=== PATIENT | male | born 1970 | race Caucasian/White ===

== ENCOUNTER → 2020-11-26 08:34 | Outpatient (BNVA) | payer BC, SELFPAY | PROVIDERS: Visit Provider Anesthesiology | DX: Z76.89 Persons encountering health services in other specified circumstances (principal) ==

== ENCOUNTER → 2020-12-24 08:28 | Outpatient (BNVA) | payer BC, SELFPAY | PROVIDERS: Visit Provider Anesthesiology ==

== ENCOUNTER 2021-01-08 06:58 | Outpatient (REF) | payer BC, SELFPAY | END 2021-01-08 06:59 | disposition home or self-care (01) | LOC: HO.RADIR 06:58 | PROVIDERS: Visit Provider Anesthesiology | DX: Z13.89 Encounter for screening for other disorder (principal) ==

== ENCOUNTER 2021-01-22 07:00 | Outpatient (REF) | payer BC, SELFPAY | END 2021-01-22 07:01 | disposition home or self-care (01) | LOC: HO.RADIR 07:00 | PROVIDERS: Visit Provider Anesthesiology | DX: M96.1 Postlaminectomy syndrome, not elsewhere classified (principal); G89.4 Chronic pain syndrome; Z88.0 Allergy status to penicillin; Z88.8 Allergy status to other drugs, medicaments and biological substances; Z79.891 Long term (current) use of opiate analgesic | CPT/HCPCS: 62370 ==

== ENCOUNTER → 2021-01-30 08:06 | Outpatient (BNVA) | payer BC, SELFPAY | PROVIDERS: Visit Provider Anesthesiology ==

== ENCOUNTER → 2021-02-11 08:16 | Outpatient (BNVA) | payer BC, SELFPAY | PROVIDERS: Visit Provider Anesthesiology ==

== ENCOUNTER → 2021-02-25 10:44 | Outpatient (BNVA) | payer BC, SELFPAY | PROVIDERS: Visit Provider Anesthesiology ==

== ENCOUNTER 2021-02-26 07:11 | Outpatient (REF) | payer BC, SELFPAY | END 2021-02-26 07:12 | disposition home or self-care (01) | LOC: HO.RADIR 07:11 | PROVIDERS: Visit Provider Anesthesiology | DX: Z13.89 Encounter for screening for other disorder (principal) | CPT/HCPCS: Q9967 ==

== ENCOUNTER 2021-03-26 06:24 | Outpatient (REF) | payer BC, SELFPAY | END 2021-03-26 06:25 | disposition home or self-care (01) | LOC: HO.RADIR 06:24 | PROVIDERS: Visit Provider Anesthesiology | DX: M96.1 Postlaminectomy syndrome, not elsewhere classified (principal); G89.4 Chronic pain syndrome; Z79.891 Long term (current) use of opiate analgesic | CPT/HCPCS: 62370 ==

== ENCOUNTER → 2021-04-11 08:03 | Outpatient (BNVA) | payer OTHER, BC, SELFPAY | PROVIDERS: Visit Provider Anesthesiology | DX: M96.1 Postlaminectomy syndrome, not elsewhere classified (principal); G89.4 Chronic pain syndrome; Z79.891 Long term (current) use of opiate analgesic | CPT/HCPCS: 62368; 99212 ==

== ENCOUNTER 2021-04-16 06:58 | Outpatient (REF) | payer OTHER, BC, SELFPAY | END 2021-04-16 06:59 | disposition home or self-care (01) | LOC: HO.RADIR 06:58 | PROVIDERS: Visit Provider Anesthesiology | DX: M96.1 Postlaminectomy syndrome, not elsewhere classified (principal); G89.4 Chronic pain syndrome; Z79.891 Long term (current) use of opiate analgesic | CPT/HCPCS: 62370 ==

== ENCOUNTER 2021-05-28 05:42 | Outpatient (REF) | payer OTHER, BC, SELFPAY | END 2021-05-28 05:43 | disposition home or self-care (01) | LOC: HO.RADIR 05:42 | PROVIDERS: Visit Provider Anesthesiology | DX: Z13.89 Encounter for screening for other disorder (principal) ==

== ENCOUNTER 2021-07-02 06:06 | Outpatient (REF) | payer OTHER, BC, SELFPAY | END 2021-07-02 06:07 | disposition home or self-care (01) | LOC: HO.RADIR 06:06 | PROVIDERS: Visit Provider Anesthesiology | DX: Z13.89 Encounter for screening for other disorder (principal) ==

== ENCOUNTER 2021-08-13 06:20 | Outpatient (REF) | payer OTHER, SELFPAY | END 2021-08-13 06:21 | disposition home or self-care (01) | LOC: HO.RADIR 06:20 | PROVIDERS: Visit Provider Anesthesiology | DX: Z13.89 Encounter for screening for other disorder (principal) ==

== ENCOUNTER 2021-09-26 11:36 | Day surgery (SDC) | payer OTHER, SELFPAY ==
[2021-09-26 11:59] VITALS: BP 129/82; PULSE 69; RESP 16; TEMP 36.3; O2SAT 96
[2021-09-26 12:03] VITALS: BMI 40.1
--- NOTE | 2021-09-26 12:57 | P.OP_ITS ---
Operative Note Operative Note Date of Service: 09/26/21 Narrative: THE PATIENT CAME TODAY IN THE OR - PACU FOR THE CHANGE OF THE MEDICATION IN his PAIN PUMP. ? The name and date of were verified and informed consent was obtained for the procedure. ?The pump was interrogated and the residual amount of fluid was found to be 4.1 mL. HE WAS POSITIONED supine on the bed AND THE AREA OF THE INTRATHECAL PUMP WAS PREPPED WITH CHLORAPREP. The fenestrated drape was sterilely applied over the area of the pump. Sterile gloves were worn and of the aspiration system was assembled containing 2 in 22 gauge noncoring needle, the needle was connected to extension tubing which was connected to the 20 cc sterile syringe. The pain pump was palpated under the skin in the patient's left abdominal area. The needle was inserted through the skin and the central plug of the pain pump and fluid was aspirated. The clear fluid was going into the syringe the total amount of the fluid was 3.6 mL .. After that a new batch? of medication was obtained which was containing dilaudid in concentration 4 mg/ml and bupivacaine 40 mg per ml. The admixture was made in 20 cc syringe prepared by [facility] compounding pharmacy. The syringe was connected to the bacterial filter, and then connected to the extension tubing. After that the medication in the syringe was slowly instilled into the pump with aspirations at 15 and 5 cc villalba. after that the needle was removed and sterile dressing was applied in the for of the band-aid.. The patient reports symptoms of peripheral polyneuropathy completely alleviated.? He reports 5 hours of good pain relief after he applies of the PTM dose.? He reports better activities of daily living, better mobility, better ability to withstand walking and sitting for prolonged period of time. The doses and?concentration?of the medications must be the same for the next refill.?
--- NOTE | 2021-09-26 12:59 | MHC.SHP ---
Pre-Procedural Eval Section A Date of Service: 09/26/21 Section B Chief Complaint: intermediate card tender use of opiate Analgesic Details of Present Illness: as above Relevant Social History: None Present Medications: see Short Stay Collaborative assessment Medical History: No relevant PMH History of Previous Operations: Relevant previous surgery/procedure and date(s) Allergies: Allergies Allergy/AdvReac Type Severity Reaction Status Date / Time penicillin V Allergy anaphylaxis Verified 09/26/21 11:58 sitagliptin [From Januvia] Allergy Anaphylaxis Verified 09/26/21 11:58 Review of Systems Sugical H&P ROS: Negative: Constitution, Cardiovascular, Respiratory, Neurological, Psychiatric, Hem-Onc, Allergic/Immunologic, Gastrointestinal, Genitourinary, Musculoskeletal, Integumentary, Endocrine and Eyes/Ears/Nose/Throat Exam Surgical H&P Exam: Normal: HEENT, Normal: Heart, Normal: Lungs, Normal: Extremities, Normal: Abdomen, Normal: Skin and Normal: Neurological Plan Diagnosis/Plan: Unchanged I have reviewed the history and physical and performed a pertinent physical examination on my patient. No changes have occurred unless specified.
--- NOTE | 2021-09-26 13:01 | PM.OP ---
Brief Operative Note Date of Service: 09/26/21 Pre-op diagnosis: postlaminectomy syndrome Post-op diagnosis: same Procedure: ITDD refill Implants: none Surgeon: Nima Russell MD Anesthesia: none Was an Drywall Application Supervisor used for this Procedure?: No Estimated blood loss (mL): 0 Pathology: none sent Condition: stable Disposition: PACU
== END 2021-09-26 12:49 | disposition home or self-care (01) ==
PROVIDERS: PCP Family Medicine Sports Medicine; Visit Provider Anesthesiology
PROC: (CPT 62370; principal; 2021-09-26 12:30)
DX: Z45.1 Encounter for adjustment and management of infusion pump (principal); G89.4 Chronic pain syndrome; M96.1 Postlaminectomy syndrome, not elsewhere classified; Z79.891 Long term (current) use of opiate analgesic; Z79.899 Other long term (current) drug therapy; Z88.0 Allergy status to penicillin; Z88.8 Allergy status to other drugs, medicaments and biological substances
CPT/HCPCS: 62370

== ENCOUNTER 2021-11-05 05:57 | Outpatient (REF) | payer OTHER, SELFPAY | END 2021-11-05 05:58 | disposition home or self-care (01) | LOC: HO.RADIR 05:57 | PROVIDERS: Visit Provider Anesthesiology | DX: Z13.89 Encounter for screening for other disorder (principal) ==

== ENCOUNTER 2021-12-10 05:42 | Outpatient (REF) | payer OTHER, SELFPAY | END 2021-12-10 05:43 | disposition home or self-care (01) | LOC: HO.RADIR 05:42 | PROVIDERS: Visit Provider Anesthesiology | DX: Z13.89 Encounter for screening for other disorder (principal) ==

== ENCOUNTER 2022-01-14 05:58 | Outpatient (REF) | payer OTHER, SELFPAY | END 2022-01-14 05:59 | disposition home or self-care (01) | LOC: HO.RADIR 05:58 | PROVIDERS: Visit Provider Anesthesiology | DX: M96.1 Postlaminectomy syndrome, not elsewhere classified (principal); G89.4 Chronic pain syndrome; Z79.891 Long term (current) use of opiate analgesic | CPT/HCPCS: 62370 ==

== ENCOUNTER 2022-02-18 06:11 | Outpatient (REF) | payer OTHER, SELFPAY | END 2022-02-18 06:12 | disposition home or self-care (01) | LOC: HO.RADIR 06:11 | PROVIDERS: Visit Provider Anesthesiology | DX: Z13.89 Encounter for screening for other disorder (principal) ==

== ENCOUNTER 2022-03-18 06:08 | Outpatient (REF) | payer OTHER, SELFPAY | END 2022-03-18 06:09 | disposition home or self-care (01) | LOC: HO.RADIR 06:08 | PROVIDERS: Visit Provider Anesthesiology | DX: Z13.89 Encounter for screening for other disorder (principal) ==

== ENCOUNTER 2022-04-23 05:55 | Outpatient (REF) | payer OTHER, SELFPAY | END 2022-04-23 05:56 | disposition home or self-care (01) | LOC: HO.RADIR 05:55 | PROVIDERS: Visit Provider Internal Medicine | DX: Z13.89 Encounter for screening for other disorder (principal) ==

== ENCOUNTER → 2022-04-24 08:27 | Outpatient (BNVA) | payer OTHER, SELFPAY | PROVIDERS: PCP Family Medicine Sports Medicine; Visit Provider Internal Medicine | DX: G89.4 Chronic pain syndrome (principal); Z96.89 Presence of other specified functional implants | CPT/HCPCS: 62370 ==

== ENCOUNTER → 2022-05-30 08:02 | Outpatient (BNVA) | payer OTHER, SELFPAY | PROVIDERS: PCP Family Medicine Sports Medicine; Visit Provider Internal Medicine | DX: G89.4 Chronic pain syndrome (principal); Z96.89 Presence of other specified functional implants | CPT/HCPCS: 62370 ==

== ENCOUNTER → 2022-10-06 08:37 | Outpatient (BNVA) | payer OTHER, SELFPAY | PROVIDERS: PCP Family Medicine Sports Medicine; Visit Provider Anesthesiology | DX: G89.4 Chronic pain syndrome (principal); M96.1 Postlaminectomy syndrome, not elsewhere classified; Z96.89 Presence of other specified functional implants; Z79.891 Long term (current) use of opiate analgesic | CPT/HCPCS: 99212 ==

== ENCOUNTER 2022-11-07 08:14 | Day surgery (SDC) | payer OTHER, SELFPAY ==
[2022-11-03 11:56] VITALS: BMI 2343.3
--- NOTE | 2022-11-06 09:43 | P.CONAN_ITS ---
Documented by User: Rosanne Roe NP 11/06/22 09:43 HPI - Anesthesia Eval Consult details Narrative: 52yo M for Intrathecal Drug Delivery Removal and Replacement 40ml pump PMFSH Active Problems Active Problems: All Active Problems (Updated 11/03/22 @ 11:51 by Arlette Vergara, RN) Granulomatous infection of spinal cord (Acute) Implantable intrathecal infusion pump present (Acute) supervisor intermediates (current) use of opiate analgesic (Acute) Chronic pain syndrome (Acute) Postlaminectomy syndrome (Acute) Past Medical History Medical History (Updated 11/03/22 @ 11:51 by Arlette Vergara, RN) Chronic pain syndrome Diabetes Elevated cholesterol GERD (gastroesophageal reflux disease) HTN (hypertension) Implantable intrathecal infusion pump present supervisor intermediates (current) use of opiate analgesic FERNANDO on CPAP Postlaminectomy syndrome Surgical History Surgical History (Updated 11/03/22 @ 11:51 by Arlette Vergara, RN) History of back surgery History of surgery Hx of appendectomy Social History Social History Patient Tobacco Use Status: Never used Tobacco Are you DNR?: No Advance Directives: No Advance Directives Information Provided: Yes Advance Directives on File: No Recently lost weight without trying: No Eating poorly because of decreased appetite: No Nutrition Risks: No Nutritional Risk Meds Allergies Allergy/AdvReac Type Severity Reaction Status Date / Time penicillin V Allergy Severe anaphylaxis Verified 11/03/22 11:42 sitagliptin [From Januvia] Allergy Severe Anaphylaxis Verified 11/03/22 11:42 Home Medications Medication Instructions Recorded Confirmed Last Taken Type atenolol 50 mg tablet 50 mg PO DAILY 05/28/21 11/03/22 Unknown History furosemide 20 mg tablet 10 mg PO QAM 05/28/21 11/03/22 09/26/21 07:30 History omeprazole 20 mg capsule,delayed 20 mg PO DAILY 05/28/21 11/03/22 Unknown History release sertraline 100 mg tablet (Zoloft) 200 mg PO DAILY 05/28/21 11/03/22 Unknown History trazodone 150 mg tablet 150 mg PO DAILY 05/28/21 11/03/22 Unknown History blood-glucose sensor (Dexcom G6 #3 ea 05/30/22 10/06/22 Unknown History Sensor device) blood-glucose transmitter (Dexcom #1 ea 05/30/22 10/06/22 Unknown History G6 Transmitter device) dulaglutide 1.5 mg/0.5 mL 1.5 mg subcut QWEEK 05/30/22 11/03/22 Unknown History subcutaneous pen injector (Trulicity) insulin lispro 100 unit/mL subcut 05/30/22 10/06/22 Unknown History subcutaneous solution (Humalog U-100 Insulin) Exam Exam Date and Time: November 06, 2022 0943 Height,Weight and Vital Signs: Height 9 in Weight 122.47 kg Assessment and Plan Assessment Anesthesia Assessment: Chart Reviewed Documented by User: Shannon Quiñones MD 11/07/22 08:41 [facility] Past Medical History Medical History (Updated 11/03/22 @ 11:51 by Arlette Vergara RN) Chronic pain syndrome Diabetes Elevated cholesterol GERD (gastroesophageal reflux disease) HTN (hypertension) Implantable intrathecal infusion pump present supervisor intermediates (current) use of opiate analgesic FERNANDO on CPAP Postlaminectomy syndrome Family History Family history of problems with anesthesia: No Surgical History Surgical History (Updated 11/03/22 @ 11:51 by Arlette Vergara RN) History of back surgery History of surgery Hx of appendectomy History of Problems with Anesthesia: No Social History Social History Patient Tobacco Use Status: Never used Tobacco Are you DNR?: No Advance Directives: No Advance Directives Information Provided: Yes Advance Directives on File: No Recently lost weight without trying: No Eating poorly because of decreased appetite: No Nutrition Risks: No Nutritional Risk Meds Allergies Allergy/AdvReac Type Severity Reaction Status Date / Time penicillin V Allergy Severe anaphylaxis Verified 11/03/22 11:42 sitagliptin [From Januvia] Allergy Severe Anaphylaxis Verified 11/03/22 11:42 Home Medications Medication Instructions Recorded Confirmed Last Taken Type atenolol 50 mg tablet 50 mg PO DAILY 05/28/21 11/03/22 Unknown History furosemide 20 mg tablet 10 mg PO QAM 05/28/21 11/03/22 09/26/21 07:30 History omeprazole 20 mg capsule,delayed 20 mg PO DAILY 05/28/21 11/03/22 Unknown History release sertraline 100 mg tablet (Zoloft) 200 mg PO DAILY 05/28/21 11/03/22 Unknown History trazodone 150 mg tablet 150 mg PO DAILY 05/28/21 11/03/22 Unknown History blood-glucose sensor (Dexcom G6 #3 ea 05/30/22 10/06/22 Unknown History Sensor device) blood-glucose transmitter (Dexcom #1 ea 05/30/22 10/06/22 Unknown History G6 Transmitter device) dulaglutide 1.5 mg/0.5 mL 1.5 mg subcut QWEEK 05/30/22 11/03/22 Unknown History subcutaneous pen injector (Trulicity) insulin lispro 100 unit/mL subcut 05/30/22 10/06/22 Unknown History subcutaneous solution (Humalog U-100 Insulin) Exam Airway Mallampati Class: II (Cap top left, 2 temporary caps lateral) TM Dist: >3cm Neck ROM: Full Heart: rrr Lungs: cta Assessment and Plan Assessment Anesthesia Assessment: Anesthesia Plan Discussed Final Anesthetic Review Family History of Problems with Anesthesia: No History of Problems with Anesthesia: No NPO: Yes ASA Class: III Final Preanesthetic Review: No Changes in Pt Med Stat, Meds/Allgs Chart Reviewed and Consent Obtained/Reviewed Patient Risk: Intermediate Procedure Risk: Intermediate Anesthetic Plan Anesthetic Plan: GA Disposition: Standard PACU
[2022-11-07] VITALS (18 sets, daily range): BP systolic 135–161; BP diastolic 69–95; PULSE 68–104; RESP 17–22; TEMP 35.7–36.6; O2SAT 94–99; BMI 39.9
--- NOTE | ~2022-11-07 | FL_ITS ---
EXAMINATION: XR FLUOROSCOPY WITH IMAGES CLINICAL INFORMATION: ITDDS removal and replacement. Pain management. COMPARISON: None. TECHNIQUE: Fluoroscopy Supervised By: Dr. Nima Russell. Fluoroscopy Time: 0.7 minutes. Cumulative Dose: 53.33 mGy. DAP: 13.17 Gycm2. Images: 2. FINDINGS: Fluoroscopy for pain management procedure. The final fluoroscopic spot view demonstrates a catheter ascending the posterior spinal canal with tip in lower thoracic region. There are multilevel degenerative disc changes and vertebral spurring. FL/FL guidance in OR IMPRESSION: Fluoroscopy for pain management procedure.
[2022-11-07] MEDS: Lactated Ringers 1,000 ML 100 ML IVCONT (08:54)
--- NOTE | 2022-11-07 09:31 | P.HPSUR_ITS ---
Pre-Procedural Eval Section A Date of Service: 11/07/22 The patient is an INPATIENT: No Changes since office visit: Yes Patient answered all questions The History & Physical has been completed within 30 days and I have reviewed it.: No Section B Chief Complaint: Chronic pain syndrome,postlaminectomy syndrome Details of Present Illness: as above as well as presence of ITDD [employer]. End of life of the pain pump. Relevant Family History (Specify if Yes): No Relevant Social History: None Present Medications: see Short Stay Collaborative assessment Medical History: No relevant PMH History of Previous Operations: No relevant previous surgery Allergies: Allergies Allergy/AdvReac Type Severity Reaction Status Date / Time penicillin V Allergy Severe anaphylaxis Verified 11/03/22 11:42 sitagliptin [From Januvia] Allergy Severe Anaphylaxis Verified 11/03/22 11:42 Review of Systems Sugical H&P ROS: Negative: Cardiovascular, Respiratory, Neurological, Psychiat diya, Hem-Onc, Allergic/Immunologic, Gastrointestinal, Genitourinary, Musculoskeletal, Integumentary, Endocrine and Eyes/Ears/Nose/Throat and Yes, Specify: Constitution (obesity) Exam Surgical H&P Exam: Normal: HEENT, Normal: Heart, Normal: Lungs, Normal: Extremities, Normal: Abdomen, Normal: Skin and Normal: Neurological Plan Diagnosis/Plan: Unchanged I have reviewed the history and physical and performed a pertinent physical examination on my patient. No changes have occurred unless specified.
--- NOTE | 2022-11-07 14:59 | PM.OP ---
Brief Operative Note Date of Service: 11/07/22 Pre-op diagnosis: posrlaminectomy syndrome, IDDD therapy, end of life of the pain pump Post-op diagnosis: same Procedure: removal of the intrathecal pain pump and replacement of the pain pump and intrathecal catheter. Surgeon: Nima Russell MD Anesthesia: GETA Was an Professor Of Oceanography used for this Procedure?: No Estimated blood loss (mL): 150 Pathology: none sent Condition: stable Disposition: PACU
--- NOTE | 2022-11-07 15:05 | W.PM.OPN ---
Operative Note Operative Note Date of Service: 11/07/22 Narrative: Cooper is very pleasant 52 years old gentleman who is suffering from postlaminectomy syndrome and intractable lower back pain who was on therapy of the intrathecal drug delivery system pain pump. The pump was inserted 7 years ago and now it went to the end of its life. The patient came today to [facility] operating room for the removal and replacement of the intrathecal drug delivary system pain pump and intrathecal catheter. The patient came to the operating room and was positioned supine on the operating table. [employer] [employer] monitors were applied and patient was induced with general anesthesia. He was transferred into the right lateral decubital position on the operating table all pressure points were protected. After that his lower back an midback as well as left nt flank as well as anterior left abdomen where a was location of the intrathecal pump were prepped with ChloraPrep and draped with sterile utility towels. After that you drapes were used to establish full body coverage and Ioban film was used to finish the dressing. Attention was 1st concentrated on the abdominal side. Location of the pump in the anterior abdomen was established. Of the previous incision was infiltrated with mixture of the lidocaine 2% and ropivacaine 0.5% 1-1. After that 12 cm incision was performed along side the previous incision. The scalpel was used 15 blade. After that thorough hemostasis using electrocautery was done. Weitlaner retractor was used to to widen the wound. very hard, partially calcified tissue of the pump antibiotics pocket was discovered covering the body of the pump. The tissue was perforated with Mariam scissors, the hemostat was inserted into the pocket and applied to the wound over the hemostat the incision was widened laterally and medially, and the body of the pump was found in the wound. it was freed from the numerous adhesions and delivered into the surface of the skin. side port of the pump was canulated with non -coring 25 g needle and aspiration was applied using 3 mls syringe. Unfortunately there were no CSF coming into the syringe. the intrathecal catheter was buried in the wound located behind the pump and the electrocautery was used to excise the catheter from the adhesions behind (more dorsal) of the antibiotic impregnated pocket. The catheter was freed from adhesions and cannulated with a tuberculin syringe needle. Again aspiration was applied unfortunately CSF was not coming again. The decision was made to replace the catheter system. The old intrathecal catheter distal end was folded on itself and 2 sutures were applied to the on the catheter. It was hidden in the soft tissue of the patient's abdominal fat. The abdominal wound was irrigated vancomycin containing normal saline and packed with lap pads soaked with normal saline mixed with vancomycin. The attention was attracted to the patient's back. Sterilely draped C-arm was brought over the operating field and anterior posterior and lateral pictures of the patient's lumbar spine was demonstrated on the screen L1-L2 interval was chosen as the point of interests of the intrathecal catheter. Strict midline incision was performed 5 cm long along side the projection of the L2 and L3 spinous processes. Thorough hemostasis was obtained using electrocautery. The incision was widened and deepened until the prevertebral fascia was reached. 16 gauge introducer needle was inserted it in projection of L3 lamina on the right and advanced to were the intrathecal space. The advancement was made on the anterior posterior and lateral views. After that on the lateral view advancement of the needle was made into the intrathecal space. Clear flow CSF was obtained. Intrathecal catheter was inserted through the needle and advanced toward T9-T10 interspace where patient's previous catheter was located. The Tycron 0 0 suture was used to form pursestring stitch. The stitch was tied over the needle and then the needle was withdrawn and the stylet was removed. The anchoring device was dislodged on the body of the catheter and advanced to the prevertebral fascia. Two Tycron sutures were used to suture the anchor to prevertebral fascia. After that irrigation with normal saline containing vancomycin was performed. Diffuse capillary bleeding was encountered. Hemostasis was attempted to be done with the Surgicel and the wound was tightly packed with vancomycin soaked 4x4s. We waited for 10 minutes and removed the Surgicel. The bleeding slowed down however capillary bleeding continued. After that tunneling device was used to connect both wounds with 1 intermittent wound on the patient flank to accommodate the tunneling catheter. The entire length of the intrathecal catheter was used. After that packing was removed from the abdominal wound and the tunneling device was used to connect the flank incision with abdominal wound the catheter was dislodged into the abdominal wound. The catheter was connected to the sutureless extension device and extension device was mounted on the pain pump. The pain pump was filled as follows sterilely obtained hydromorphone 10 milligrams/mL 10 mL was mixed with sterilely obtain preservative-free normal saline 10 mL constituting 20 mL of this solution with concentration of 5 mg of hydromorphone per mL. The pump was filled with this solution. The pump was 40 cc pump. The adhesions in the lower portion of the wound were excised with the antibiotic containing pocket materials. Anchoring sutures were applied to most inferior medial and most inferior lateral corners of the wound. They were connected to the brackets on the body of the pump, the pump was dislodged into the abdominal wound, the anchoring sutures were tied. After that the side port of the new 40 cc intrathecal pump was accessed using noncoring needle and the aspiration was performed. 0.5 mL of clear CSF was obtained into the syringe. The abdominal wound was closed using Polysorb 0 and Polysorb 2-0 was used to approximate the level of the skin. [place] were applied to the skin level. After that attention was concentrated on the wound in the back. 4 x 4 soaked with vancomycin containing normal saline were removed from the wound. Slow capillary bleeding continued. Snow hemostatic device was obtained on the operating field and wound was packed with this hemostatic resorbable device. That arrested the bleeding. Decision was made to keep the resorbable material in the wound. It was made wet with vancomycin containing normal saline. After that 0 Polysorb sutures were used to close back wound. 0 Polysorb sutures were used to approximate the sides of the skin and jaswinder were applied to the skin level. Two silk sutures were applied to close the flank wound. Bacitracin was applied to all 3 wounds bulky dressings were applied to the bilateral wounds and compress down to hold bulky material down to the skin. Abdominal binder was applied to the patient's abdomen. After that the patient was transferred supine on the operating table, awakened, extubated and transferred stable to the PACU. He recovered uneventfully in PACU.
[2022-11-07 15:08] LABS: Glucose, Whole Blood 183 mg/dL (60-115)
[2022-11-07] MEDS: Albuterol/Iprat 2.5/0.5MG 3 ML AMPUL.NEB INHALE (15:22)
[2022-11-07] MEDS: oxyCODONE HCl Immed Release 5 MG TABLET PO (15:38)
[2022-11-07] MEDS: fentaNYL citrate/PF 100 MCG/2 ML VIAL 25 MCG IVPUSH ×4 (15:39→16:04)
[2022-11-07] MEDS: Acetaminophen 325 MG TABLET 650 MG PO (15:43)
[2022-11-07] MEDS: HYDROmorphone HCl 0.5 MG/0.5 ML SYRINGE IVPUSH (16:33)
== END 2022-11-07 17:32 | disposition home or self-care (01) ==
PROVIDERS: PCP Family Medicine Sports Medicine; Visit Provider Anesthesiology
PROC: (CPT 62362; principal; 2022-11-07 10:00)
DX: G89.4 Chronic pain syndrome (principal); M96.1 Postlaminectomy syndrome, not elsewhere classified; E11.9 Type 2 diabetes mellitus without complications; I10 Essential (primary) hypertension; G47.33 Obstructive sleep apnea (adult) (pediatric); Z79.4 Long term (current) use of insulin; Z79.891 Long term (current) use of opiate analgesic; Z79.899 Other long term (current) drug therapy; Z88.0 Allergy status to penicillin; Z88.8 Allergy status to other drugs, medicaments and biological substances; Z99.89 Dependence on other enabling machines and devices
CPT/HCPCS: 62362; 62350; 82947; 94640; C1755; C1772; J0131; J1100; J1170; J2250; J2405; J2795; J3010; J3370; Q9967

== ENCOUNTER → 2022-11-13 09:26 | Outpatient (BNVA) | payer OTHER, SELFPAY | PROVIDERS: PCP Family Medicine Sports Medicine; Visit Provider Anesthesiology | DX: M96.1 Postlaminectomy syndrome, not elsewhere classified (principal); G89.4 Chronic pain syndrome; Z79.891 Long term (current) use of opiate analgesic; Z96.89 Presence of other specified functional implants | CPT/HCPCS: 62370; 99212 ==

== ENCOUNTER → 2022-11-20 09:45 | Outpatient (BNVA) | payer OTHER, SELFPAY | PROVIDERS: PCP Family Medicine Sports Medicine; Visit Provider Anesthesiology | DX: M96.1 Postlaminectomy syndrome, not elsewhere classified (principal); G89.4 Chronic pain syndrome; Z96.89 Presence of other specified functional implants; Z79.891 Long term (current) use of opiate analgesic | CPT/HCPCS: 99212 ==

== ENCOUNTER → 2023-02-04 08:28 | Outpatient (BNVA) | payer OTHER, SELFPAY | PROVIDERS: PCP Family Medicine Sports Medicine; Visit Provider Anesthesiology | DX: M96.1 Postlaminectomy syndrome, not elsewhere classified (principal); G89.4 Chronic pain syndrome; Z96.89 Presence of other specified functional implants; Z79.891 Long term (current) use of opiate analgesic | CPT/HCPCS: 62370; 99212 ==

== ENCOUNTER → 2023-03-18 11:40 | Outpatient (BNVA) | payer OTHER, SELFPAY | PROVIDERS: PCP Family Medicine Sports Medicine; Visit Provider Anesthesiology | DX: Z13.89 Encounter for screening for other disorder (principal) ==

== ENCOUNTER → 2023-04-22 08:25 | Outpatient (BNVA) | payer OTHER, SELFPAY | PROVIDERS: PCP Family Medicine Sports Medicine; Visit Provider Anesthesiology | DX: Z45.1 Encounter for adjustment and management of infusion pump (principal); M96.1 Postlaminectomy syndrome, not elsewhere classified; G89.4 Chronic pain syndrome; Z96.82 Presence of neurostimulator; Z79.891 Long term (current) use of opiate analgesic | CPT/HCPCS: 99212 ==

== ENCOUNTER 2023-07-13 08:31 | Outpatient (AMB) | payer OTHER, SELFPAY ==
[2023-07-13 08:39] VITALS: BP 136/72; PULSE 76; RESP 16; O2SAT 96; BMI 38.7
--- NOTE | 2023-07-13 08:39 | A.OFFVIS_ITS ---
Intake Vital Signs 07/13/23 08:39 Height 5 ft 9 in Weight 262 lb 3 oz BMI 38.7 BP 136/72 Blood Pressure Location Lt brachial Position Sitting Respiration 16 Pulse 76 Pulse Source Pulse Oximeter Pulse Oximetry (%) 96 Oxygen Delivery Method Room Air Intake Visit Reasons: ITDD Refill Allergies penicillin V Allergy (Severe, Verified 07/13/23 08:40) anaphylaxis sitagliptin [From Januvia] Allergy (Severe, Verified 07/13/23 08:40) Anaphylaxis HPI HPI Comments History of Present Illness Details Cooper is in my office again to refill medications in his pain pump.? The pump refill note is as below.? His complaint today mostly on the increased neuropathy in bilateral lower extremities. He has chronic diabetic patient on insulin pump. He is interested in discussing other means to treat the neuropathy but his pain pump. I told him that we reached a maximum concentration of the bupivacaine in the pump and a nerve further increase of the dose of the bupivacaine possible without decrease of effectiveness of the main medication hydromorphone in the pump. I offered this patient to try spinal cord stimulator Nevro. I told him that he needs to go to psychological evaluation before the trial. He said that he will be thinking about it. Meanwhile pump refill he is as below. ?Prior: ? He is suffering from postlaminectomy syndrome.? He has intrathecal pain pump for the past 7 years.? The intrathecal pain pump came to the end of life.? He went for the procedure of removal and replacement of intrathecal pain pump on 11/07/2022.? During the procedure we found several kinks of the intrathecal catheter.? Intrathecal catheter was replaced.? Intraoperatively patient had significant bleeding in the spinal wound were insertion of the catheter was made.? The ?snow ?surgical application was used to stop the bleeding in the area of the midline spinal incision.? In the patient's abdominal incision the old pump was found to be encapsulated in the antibiotic pouch.? The pouch was partially excised as it was calcified and causing severe adhesions in surrounding areas. The patient came today for the dressing change and removal of the jaswinder There were no bruising no swelling no redness no pathological discharge no local temperature, .? The wounds were worst with ChloraPrep, the jaswinder were removed, the wound was? draped with bacitracin ointment.? The pump was interrogated and the medication was changed in the pump.. PFSH Medical History (Updated 11/12/22 @ 08:13 by Nima Russell MD) Chronic pain syndrome Diabetes Elevated cholesterol GERD (gastroesophageal reflux disease) HTN (hypertension) Implantable intrathecal infusion pump present detention (current) use of opiate analgesic FERNANDO on CPAP Postlaminectomy syndrome Surgical History (Updated 11/03/22 @ 11:51 by Arlette Vergara RN) History of back surgery History of surgery Hx of appendectomy Social History Patient Tobacco Use Status: Never used Tobacco Review of Systems Const All systems reviewed & are unremarkable except as noted in HPI and below ENT Reports Normal hearing present Neuro Reports Normal hearing present, Denies Abnormal speech present and Denies Sensory deficit (Neuro) Physical Exam Vital Signs: Last Vital Signs Pulse 76 07/13/23 08:39 Resp 16 07/13/23 08:39 BP 136/72 07/13/23 08:39 Pulse Ox 96 07/13/23 08:39 Oxygen Delivery Method Room Air 07/13/23 08:39 BMI result Body Mass Index 38.7 Const General: cooperative, healthy appearing, comfortable and well developed; No no acute distress Nutritional Appearance: obese morbidly obese and overweight Orientation/consciousness: patient oriented x3 Limitations: no limitations Eyes General: appearance normal, both eyes and all related structures Pupils: Equal, round and reactive pupils present EOM: EOMs intact bilaterally Neck Neck: Yes full ROM Chest Chest palpation & inspection: normal inspection of the chest Resp Effort & Inspection: normal respiratory effort, able to speak in complete sentences, normal respiratory pattern, no audible wheezes and no cough Cardio Jugular venous distension: no JVD GI Inspection: Yes normal to inspection Back/Spine/Pelvis Other: On the physical examination he has pump in the left abdomen. He also has multiple scars from previous surgeries: He has Pfannenstiel incision in the lower abdomen for the anterior fusion and multiple midline and paramedian scars in projection of L5 and S1 vertebra as on the back. He denies weakness in bilateral lower extremities he denies incontinence with urine and/or stool he denies Valsalva maneuver positive. SLR is positive on the right and equivocal on the left. Neuro General: patient oriented x3 Cranial nerves: Yes Equal, round and reactive pupils present and Yes Normal hearing present Cognition (Neuro): normal cognition Speech: No Abnormal speech present Gait exam (Neuro): Normal gait present Motor exam (neuro): 55 motor strength present throughout Sensory Exam: No Sensory deficit (Neuro) Psych Appearance: grossly normal Mental Status: mental status grossly normal Speech and movement: Normal speech and movement present Affect: normal affect Attitude: cooperative Thought process: Normal thought process present Thought content: Normal thought content present Insight: Good insight present (Psych) Judgement: Good judgement present (Psych) Assessment & Plan Assessment & Plan (1) Implantable intrathecal infusion pump present: Comment: last refill 07/07/22 Code(s): Z96.89 - Presence of other specified functional implants (2) Chronic pain syndrome: Code(s): G89.4 - Chronic pain syndrome (3) Postlaminectomy syndrome: Code(s): M96.1 - Postlaminectomy syndrome, not elsewhere classified (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 However before that he will give us a call and tell us whether not he wants to try Nevro SCS. We need to send him to psych [facility] after his decision is made to try Nevro SCS. Plan THE PATIENT CAME TODAY IN THE OR - PACU FOR THE CHANGE OF THE MEDICATION IN his PAIN PUMP.? ?The pump was interrogated and the residual amount of fluid was found to be?4? mL. HE WAS POSITIONED supine on the bed AND THE AREA OF THE INTRATHECAL PUMP WAS PREPPED WITH CHLORAPREP. The fenestrated drape was sterilely applied over the area of the pump. Sterile gloves were worn and of the aspiration system was assembled containing 2 in 22 gauge noncoring needle, the needle was connected to extension tubing which was connected to the 20 cc sterile syringe. The pain pump was palpated under the skin in the patient's left abdominal area. The needle was inserted through the skin and the central plug of the pain pump and fluid was aspirated. The clear fluid was going into the syringe the total amount of the fluid was 5 mL .. After that a new batch? of medication was obtained which was containing dilaudid in concentration 4 mg/ml and bupivacaine 40 mg per ml. The admixture was made in two 20 cc syringes prepared by [facility] compounding pharmacy. The syringe was connected to the bacterial filter, and then connected to the extension tubing. After that the medication in the syringe was slowly instilled into the pump with aspirations at 15 and 5 cc villalba. after that the needle was removed and sterile dressing was applied in the for of the band-aid.. The doses and?concentration?of the medications must be the same for the next refill.? Coding Level of Care Code Est Pt Level 4 (50573) Procedure Only Diagnoses Implantable intrathecal infusion pump present Z96.89 Chronic pain syndrome G89.4 Postlaminectomy syndrome M96.1 detention (current) use of opiate analgesic Z79.891
== END 2023-07-13 08:59 | disposition home or self-care (01) ==
PROVIDERS: PCP Family Medicine Sports Medicine; Visit Provider Anesthesiology
DX: Z45.1 Encounter for adjustment and management of infusion pump (principal); Z79.891 Long term (current) use of opiate analgesic; G89.4 Chronic pain syndrome; M96.1 Postlaminectomy syndrome, not elsewhere classified
CPT/HCPCS: 95991

== ENCOUNTER → 2023-07-13 08:31 | Outpatient (BNVA) | payer OTHER, SELFPAY | PROVIDERS: PCP Family Medicine Sports Medicine; Visit Provider Anesthesiology ==

== ENCOUNTER 2023-09-30 08:30 | Outpatient (AMB) | payer OTHER, SELFPAY ==
[2023-09-30 08:33] VITALS: PULSE 83; RESP 12; O2SAT 97; BMI 38.4
--- NOTE | 2023-09-30 08:33 | A.OFFVIS_ITS ---
Intake Vital Signs 09/30/23 08:33 Height 5 ft 9 in Weight 260 lb BMI 38.4 Blood Pressure Location Lt brachial Position Sitting Respiration 12 Pulse 83 Pulse Source Pulse Oximeter Pulse Oximetry (%) 97 Oxygen Delivery Method Room Air Intake Visit Reasons: ITDD Refill /Confirmed Allergies penicillin V Allergy (Severe, Verified 09/30/23 08:34) anaphylaxis sitagliptin [From Januvia] Allergy (Severe, Verified 09/30/23 08:34) Anaphylaxis Medication List - Last Reconciled 09/30/23 by Violeta Corado LPN atenolol 50 mg PO DAILY blood-glucose sensor (Dexcom G6 Sensor device) As directed blood-glucose transmitter (Dexcom G6 Transmitter device) As directed furosemide 10 mg PO QAM insulin lispro (Humalog U-100 Insulin) subcut omeprazole 20 mg PO DAILY sertraline (Zoloft) 200 mg PO DAILY tirzepatide (Mounjaro) mg subcut trazodone 150 mg PO DAILY HPI HPI Comments History of Present Illness Details Cooper is in my office again to refill medications in his pain pump.? The pump refill note is as below.? His complaint today mostly on the increased neuropathy in bilateral lower extremities. He has chronic diabetic patient on insulin pump. He is interested in discussing other means to treat the neuropathy but his pain pump. I told him that we reached a maximum concentration of the bupivacaine in the pump and a nerve further increase of the dose of the bupivacaine possible without decrease of effectiveness of the main medication hydromorphone in the pump. Never SCS was discussed again patient is still thinking about it but meanwhile we need to send him for psychological evaluation. If he passes psych evaluation I do not mind to do a trial. Pump refill is as below. No changes were made in concentration of the medication. No changes will be done in in November we were at max concentration of bupivacaine. ? He is suffering from postlaminectomy syndrome.? He has intrathecal pain pump for the past 7 years.? The intrathecal pain pump came to the end of life.? He went for the procedure of removal and replacement of intrathecal pain pump on 11/07/2022.? During the procedure we found several kinks of the intrathecal catheter.? Intrathecal catheter was replaced.? Intraoperatively patient had significant bleeding in the spinal wound were insertion of the catheter was made.? The ?snow ?surgical application was used to stop the bleeding in the area of the midline spinal incision.? In the patient's abdominal incision the old pump was found to be encapsulated in the antibiotic pouch.? The pouch was partially excised as it was calcified and causing severe adhesions in surrounding areas. The patient came today for the dressing change and removal of the jaswinder There were no bruising no swelling no redness no pathological discharge no local temperature, .? The wounds were worst with ChloraPrep, the jaswinder were removed, the wound was? draped with bacitracin ointment.? The pump was interrogated and the medication was changed in the pump.. [facility] Medical History (Updated 11/12/22 @ 08:13 by Nima Russell MD) FERNANDO on CPAP Elevated cholesterol Diabetes GERD (gastroesophageal reflux disease) HTN (hypertension) Implantable intrathecal infusion pump present halfway (current) use of opiate analgesic Chronic pain syndrome Postlaminectomy syndrome Surgical History (Updated 11/03/22 @ 11:51 by Arlette Vergara RN) Hx of appendectomy History of back surgery History of surgery Social History Patient Tobacco Use Status: Never used Tobacco Review of Systems Const All systems reviewed & are unremarkable except as noted in HPI and below ENT Reports Normal hearing present Neuro Reports Normal hearing present, Denies Abnormal speech present and Denies Sensory deficit (Neuro) Physical Exam Vital Signs: Last Vital Signs Pulse 83 09/30/23 08:33 Resp 12 09/30/23 08:33 Pulse Ox 97 09/30/23 08:33 Oxygen Delivery Method Room Air 09/30/23 08:33 BMI result Body Mass Index 38.4 Const General: cooperative, healthy appearing, comfortable and well developed; No no acute distress Nutritional Appearance: obese morbidly obese and overweight Orientation/consciousness: patient oriented x3 Limitations: no limitations Eyes General: appearance normal, both eyes and all related structures Pupils: Equal, round and reactive pupils present EOM: EOMs intact bilaterally Neck Neck: Yes full ROM Chest Chest palpation & inspection: normal inspection of the chest Resp Effort & Inspection: normal respiratory effort, able to speak in complete sentences, normal respiratory pattern, no audible wheezes and no cough Cardio Jugular venous distension: no JVD GI Inspection: Yes normal to inspection Back/Spine/Pelvis Other: On the physical examination he has pump in the left abdomen. He also has multiple scars from previous surgeries: He has Pfannenstiel incision in the lower abdomen for the anterior fusion and multiple midline and paramedian scars in projection of L5 and S1 vertebra as on the back. He denies weakness in bilateral lower extremities he denies incontinence with urine and/or stool he denies Valsalva maneuver positive. SLR is positive on the right and equivocal on the left. Neuro General: patient oriented x3 Cranial nerves: Yes Equal, round and reactive pupils present and Yes Normal hearing present Cognition (Neuro): normal cognition Speech: No Abnormal speech present Gait exam (Neuro): Normal gait present Motor exam (neuro): 5/5 motor strength present throughout Sensory Exam: No Sensory deficit (Neuro) Psych Appearance: grossly normal Mental Status: mental status grossly normal Speech and movement: Normal speech and movement present Affect: normal affect Attitude: cooperative Thought process: Normal thought process present Thought content: Normal thought content present Insight: Good insight present (Psych) Judgement: Good judgement present (Psych) Assessment & Plan Assessment & Plan (1) Implantable intrathecal infusion pump present: Comment: last refill 07/07/22 Code(s): Z96.89 - Presence of other specified functional implants (2) Chronic pain syndrome: Code(s): G89.4 - Chronic pain syndrome (3) Postlaminectomy syndrome: Code(s): M96.1 - Postlaminectomy syndrome, not elsewhere classified (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 However before that he will give us a call and tell us whether not he wants to try Nevro SCS. We need to send him to [facility] after his decision is made to try Nevro SCS. Plan THE PATIENT CAME TODAY IN the office FOR THE CHANGE OF THE MEDICATION IN his PAIN PUMP.? ?The pump was interrogated and the residual amount of fluid was found to be?4.9? mL. HE WAS POSITIONED supine on the bed AND THE AREA OF THE INTRATHECAL PUMP WAS PREPPED WITH CHLORAPREP. The fenestrated drape was sterilely applied over the area of the pump. Sterile gloves were worn and of the aspiration system was assembled containing 2 in 22 gauge noncoring needle, the needle was connected to extension tubing which was connected to the 20 cc sterile syringe. The pain pump was palpated under the skin in the patient's left abdominal area. The needle was inserted through the skin and the central plug of the pain pump and fluid was aspirated. The clear fluid was going into the syringe the total amount of the fluid was 6.5 mL .. After that a new batch? of medication was obtained which was containing dilaudid in concentration 4 mg/ml and bupivacaine 40 mg per ml. The admixture was made in two 20 cc syringes prepared by [facility] compounding pharmacy. The syringe was connected to the bacterial filter, and then connected to the extension tubing. After that the medication in the syringe was slowly instilled into the pump with aspirations at 35, 25, 15 and 5 cc villalba. after that the needle was removed and sterile dressing was applied in the for of the band-aid.. The doses and?concentration?of the medications must be the same for the next refill.? Coding Level of Care Code Est Pt Level 3 (10019) Procedure Only Diagnoses Implantable intrathecal infusion pump present Z96.89 Chronic pain syndrome G89.4 Postlaminectomy syndrome M96.1 halfway (current) use of opiate analgesic Z79.891
== END 2023-09-30 09:17 | disposition home or self-care (01) ==
PROVIDERS: PCP Family Medicine Sports Medicine; Visit Provider Anesthesiology
DX: G89.4 Chronic pain syndrome (principal); M96.1 Postlaminectomy syndrome, not elsewhere classified; Z79.891 Long term (current) use of opiate analgesic; Z45.1 Encounter for adjustment and management of infusion pump
CPT/HCPCS: 95991; 99213

== ENCOUNTER → 2023-09-30 08:30 | Outpatient (BNVA) | payer OTHER, SELFPAY | PROVIDERS: PCP Family Medicine Sports Medicine; Visit Provider Anesthesiology | DX: Z48.00 Encounter for change or removal of nonsurgical wound dressing (principal); Z48.02 Encounter for removal of sutures; M96.1 Postlaminectomy syndrome, not elsewhere classified; G89.4 Chronic pain syndrome; Z96.82 Presence of neurostimulator; Z79.891 Long term (current) use of opiate analgesic | CPT/HCPCS: 99212 ==

== ENCOUNTER 2023-12-21 08:25 | Outpatient (AMB) | payer OTHER, SELFPAY ==
--- NOTE | 2023-12-21 08:28 | MHC.OFFVIS ---
Intake Vital Signs 12/21/23 09:02 Height 5 ft 9 in Weight 253 lb 8 oz BMI 37.4 BP 136/76 Blood Pressure Location Lt brachial Position Sitting Respiration 16 Pulse 74 Pulse Source Pulse Oximeter Pulse Oximetry (%) 96 Oxygen Delivery Method Room Air Intake Visit Reasons: ITDD REFILL/ UDS/confirmed Intake Note: Patient comes in for intrathecal medication refill. Reports pain 4/10. Allergies penicillin V Allergy (Severe, Verified 12/21/23 09:02) anaphylaxis sitagliptin [From Januvia] Allergy (Severe, Verified 12/21/23 09:02) Anaphylaxis HPI HPI Comments History of Present Illness Details Cooper is in my office again to refill medications in his pain pump.? The pump refill note is as below.? His complaint today mostly on the increased neuropathy in bilateral lower extremities. He has chronic diabetic patient on insulin pump. At the same time his social circumstances significantly changed. He lost his job, however he hopes it will be restored. His workman's comp insurance give obstacles to [employer] with next pump refills. Because he lost his [employer] insurance he is unable to afford insulin for himself and his hemoglobin A1c is almost 9. The last thing is today during the pump refill he has discrepancy of 3 mLs, this might be evident of granuloma, we decided that we will wait until the next refill and if the discrepancy states the same or increase we would need to do a dye study for him. I told him that since he does not have work he better be off to start [place] Medicaid to at least obtain insulin for himself. ? He is suffering from postlaminectomy syndrome and diabetic polyneuropathy. In the past we discussed spinal cord stimulation to help diabetic polyneuropathy, however at this point with insurance difficulties this conversation probably is a moot point. He has intrathecal pain pump for the past 7 years.? The intrathecal pain pump came to the end of life.? He went for the procedure of removal and replacement of intrathecal pain pump on 11/07/2022.? During the procedure we found several kinks of the intrathecal catheter.? Intrathecal catheter was replaced.? Intraoperatively patient had significant bleeding in the spinal wound were insertion of the catheter was made.? The ?snow ?surgical application was used to stop the bleeding in the area of the midline spinal incision.? In the patient's abdominal incision the old pump was found to be encapsulated in the antibiotic pouch.? The pouch was partially excised as it was calcified and causing severe adhesions in surrounding areas. [facility] Medical History (Updated 11/12/22 @ 08:13 by Nima Russell MD) FERNANDO on CPAP Elevated cholesterol Diabetes GERD (gastroesophageal reflux disease) HTN (hypertension) Implantable intrathecal infusion pump present [facility] (current) use of opiate analgesic Chronic pain syndrome Postlaminectomy syndrome Surgical History (Updated 11/03/22 @ 11:51 by Arlette Vergara RN) Hx of appendectomy History of back surgery History of surgery Social History Patient Tobacco Use Status: Never used Tobacco Review of Systems Const All systems reviewed & are unremarkable except as noted in HPI and below ENT Reports Normal hearing present Neuro Reports Normal hearing present, Denies Abnormal speech present and Denies Sensory deficit (Neuro) Physical Exam Const General: cooperative, healthy appearing, comfortable and well developed; No no acute distress Nutritional Appearance: obese morbidly obese and overweight Orientation/consciousness: patient oriented x3 Limitations: no limitations Eyes General: appearance normal, both eyes and all related structures Pupils: Equal, round and reactive pupils present EOM: EOMs intact bilaterally Neck Neck: Yes full ROM Chest Chest palpation & inspection: normal inspection of the chest Resp Effort & Inspection: normal respiratory effort, able to speak in complete sentences, normal respiratory pattern, no audible wheezes and no cough Cardio Jugular venous distension: no JVD GI Inspection: Yes normal to inspection Back/Spine/Pelvis Other: On the physical examination he has pump in the left abdomen. He also has multiple scars from previous surgeries: He has Pfannenstiel incision in the lower abdomen for the anterior fusion and multiple midline and paramedian scars in projection of L5 and S1 vertebra as on the back. He denies weakness in bilateral lower extremities he denies incontinence with urine and/or stool he denies Valsalva maneuver positive. SLR is positive on the right and equivocal on the left. Neuro General: patient oriented x3 Cranial nerves: Yes Equal, round and reactive pupils present and Yes Normal hearing present Cognition (Neuro): normal cognition Speech: No Abnormal speech present Gait exam (Neuro): Normal gait present Motor exam (neuro): 5/5 motor strength present throughout Sensory Exam: No Sensory deficit (Neuro) Psych Appearance: grossly normal Mental Status: mental status grossly normal Speech and movement: Normal speech and movement present Affect: normal affect Attitude: cooperative Thought process: Normal thought process present Thought content: Normal thought content present Insight: Good insight present (Psych) Judgement: Good judgement present (Psych) Assessment & Plan Assessment & Plan (1) Implantable intrathecal infusion pump present: Comment: last refill 07/07/22 Code(s): Z96.89 - Presence of other specified functional implants (2) Chronic pain syndrome: Code(s): G89.4 - Chronic pain syndrome (3) Postlaminectomy syndrome: Code(s): M96.1 - Postlaminectomy syndrome, not elsewhere classified (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 Before 03/12/2024. [facility] is probably a moot point at this time because of his insurance issues. Discussion of the social issues is as above. Plan THE PATIENT CAME TODAY IN the office FOR THE CHANGE OF THE MEDICATION IN his PAIN PUMP.? ?The pump was interrogated and the residual amount of fluid was found to be?3.5?mL. HE WAS POSITIONED supine on the bed AND THE AREA OF THE INTRATHECAL PUMP WAS PREPPED WITH CHLORAPREP. The fenestrated drape was sterilely applied over the area of the pump. Sterile gloves were worn and of the aspiration system was assembled containing 2 in 22 gauge noncoring needle, the needle was connected to extension tubing which was connected to the 20 cc sterile syringe. The pain pump was palpated under the skin in the patient's left abdominal area. The needle was inserted through the skin and the central plug of the pain pump and fluid was aspirated. The clear fluid was going into the syringe the total amount of the fluid was 6.5 mL .. After that a new batch? of medication was obtained which was containing dilaudid in concentration 4 mg/ml and bupivacaine 40 mg per ml. The admixture was made in two 20 cc syringes prepared by [facility] compounding pharmacy. The syringe was connected to the bacterial filter, and then connected to the extension tubing. After that the medication in the syringe was slowly instilled into the pump with aspirations at 35, 25, 15 and 5 cc villalba. after that the needle was removed and sterile dressing was applied in the for of the band-aid.. The doses and?concentration?of the medications must be the same for the next refill.? Patient Instructions: I here by testify that I spent 30 minute discussing medical and social issues with this patient as well as planning his care and organizing his note. There was a separate time to fill up and adjust his pain pump as well. 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
[2023-12-21 09:02] VITALS: BP 136/76; PULSE 74; RESP 16; O2SAT 96; BMI 37.4
== END 2023-12-21 08:54 | disposition home or self-care (01) ==
PROVIDERS: PCP Family Medicine Sports Medicine; Visit Provider Anesthesiology
DX: G89.4 Chronic pain syndrome (principal); M96.1 Postlaminectomy syndrome, not elsewhere classified; Z79.891 Long term (current) use of opiate analgesic; Z45.1 Encounter for adjustment and management of infusion pump
CPT/HCPCS: 95991; 99214

== ENCOUNTER → 2023-12-21 08:25 | Outpatient (BNVA) | payer OTHER, SELFPAY | PROVIDERS: PCP Family Medicine Sports Medicine; Visit Provider Anesthesiology | DX: Z45.1 Encounter for adjustment and management of infusion pump (principal); G89.4 Chronic pain syndrome; M96.1 Postlaminectomy syndrome, not elsewhere classified; Z79.891 Long term (current) use of opiate analgesic; Z96.89 Presence of other specified functional implants | CPT/HCPCS: 99212 ==

== ENCOUNTER 2024-03-10 08:26 | Outpatient (AMB) | payer OTHER, SELFPAY ==
--- NOTE | 2024-03-10 08:27 | A.OFFVIS_ITS ---
Intake Vital Signs 03/10/24 09:12 Height 5 ft 9 in Weight 250 lb BMI 36.9 BP 140/90 H Blood Pressure Location Lt brachial Position Sitting Respiration 16 Pulse 71 Pulse Source Pulse Oximeter Pulse Oximetry (%) 95 Oxygen Delivery Method Room Air Intake Visit Reasons: ITDD REFILL Intake Note: Patient comes in for intrathecal medication refill. Reports pain 02/06. Allergies penicillin V Allergy (Severe, Verified 03/10/24 09:13) anaphylaxis sitagliptin [From Januvia] Allergy (Severe, Verified 03/10/24 09:13) Anaphylaxis HPI HPI Comments History of Present Illness Details Cooper is in my office again to refill medications in his pain pump.? The pump refill note is as below.? He complains today on 2 different pain generators not related to the area of his pain pump and postlaminectomy syndrome. He reports pain in the neck in the projection of the C7 C6 and C5 vertebral spinous processes which is exacerbated by flexing had backwards - full physical exam see below. He also is complaining on pain in his left shoulder. He is under care of orthopedic surgeon who offered him total shoulder replacement. At the age of [age] years old this is not in my opinion a very prudent solution. In 15 years when he is only 68 his shoulder joint will be rendered incapacitated, unfortunately there is no 2nd shoulder replacement. I offered him platelet rich plasma injection. He wants to think about it. He also reports on pain once an hour radiating down to his right upper extremity in form of pins and needles and tingling sensation. That maybe evidence of minimal nerve root compression and foraminal stenosis. To evaluate this I needs to see his MRI. I can offer him epidural steroid injections in the cervical spine to help his pain. He also needs to go for physical therapy. I explained to him that home exercise program 3 to 4 times a day 15-20 minutes at a time is a crucial part of the physical therapy. He understood me and he will be attending physical therapy in the local [place] office. Pump refill is as below. He again has discrepancy of 3 mL like last time on the pump refill. It bothers me a little bit however since it has not growing and the patient reports good pain relief on the boluses he administers himself the pain medication I am content with the difference. He has chronic diabetic patient on insulin pump. At the same time his social circumstances significantly changed. He lost his job, however he hopes it will be restored. His workman's comp insurance give obstacles to [facility] with next pump refills. His insurance is restored. ? He is suffering from postlaminectomy syndrome and diabetic polyneuropathy. In the past we discussed spinal cord stimulation to help diabetic polyneuropathy, however at this point with insurance difficulties this conversation probably is a moot point. He has intrathecal pain pump for the past 7 years.? The intrathecal pain pump came to the end of life.? He went for the procedure of removal and replacement of intrathecal pain pump on 11/07/2022.? During the procedure we found several kinks of the intrathecal catheter.? Intrathecal catheter was replaced.? I ntraoperatively patient had significant bleeding in the spinal wound were insertion of the catheter was made.? The ?snow ?surgical application was used to stop the bleeding in the area of the midline spinal incision.? In the patient's abdominal incision the old pump was found to be encapsulated in the antibiotic pouch.? The pouch was partially excised as it was calcified and causing severe adhesions in surrounding areas. [facility] Medical History (Updated 03/10/24 @ 09:04 by Nima Russell MD) FERNANDO on CPAP Elevated cholesterol Diabetes GERD (gastroesophageal reflux disease) HTN (hypertension) Implantable intrathecal infusion pump present [facility] (current) use of opiate analgesic Chronic pain syndrome Postlaminectomy syndrome Surgical History (Updated 11/03/22 @ 11:51 by Arlette Vergara RN) Hx of appendectomy History of back surgery History of surgery Social History Patient Tobacco Use Status: Never used Tobacco Review of Systems Const All systems reviewed & are unremarkable except as noted in HPI and below ENT Reports Normal hearing present Neuro Reports Normal hearing present, Denies Abnormal speech present and Denies Sensory deficit (Neuro) Physical Exam Vital Signs: Last Vital Signs Pulse 71 03/10/24 09:12 Resp 16 03/10/24 09:12 BP 140/90 H 03/10/24 09:12 Pulse Ox 95 03/10/24 09:12 Oxygen Delivery Method Room Air 03/10/24 09:12 BMI result Body Mass Index 36.9 Const General: cooperative, healthy appearing, comfortable and well developed; No no acute distress Nutritional Appearance: obese morbidly obese and overweight Orientation/consciousness: patient oriented x3 Limitations: no limitations Eyes General: appearance normal, both eyes and all related structures Pupils: Equal, round and reactive pupils present EOM: EOMs intact bilaterally Neck Other: Limited range of motion of the cervical spine. Unable to extend had backwards due to severe pain. Axial compression does not aggravate the pain. However axial alleviation make his pain much better. Tenderness on palpation mostly on paraspinal as well as central spinal regions at the projection of the C4-C5 C6 and C7 spinous processes. Neck: No full ROM Chest Chest palpation & inspection: normal inspection of the chest Resp Effort & Inspection: normal respiratory effort, able to speak in complete sentences, normal respiratory pattern, no audible wheezes and no cough Cardio Jugular venous distension: no JVD GI Inspection: Yes normal to inspection Back/Spine/Pelvis Other: On the physical examination he has pump in the left abdomen. He also has multiple scars from previous surgeries: He has Pfannenstiel incision in the lower abdomen for the anterior fusion and multiple midline and paramedian scars in projection of L5 and S1 vertebra as on the back. He denies weakness in bilateral lower extremities he denies incontinence with urine and/or stool he denies Valsalva maneuver positive. SLR is positive on the right and equivocal on the left. Neuro General: patient oriented x3 Cranial nerves: Yes Equal, round and reactive pupils present and Yes Normal hearing present Cognition (Neuro): normal cognition Speech: No Abnormal speech present Gait exam (Neuro): Normal gait present Motor exam (neuro): 5/5 motor strength present throughout Sensory Exam: No Sensory deficit (Neuro) Psych Appearance: grossly normal Mental Status: mental status grossly normal Speech and movement: Normal speech and movement present Affect: normal affect Attitude: cooperative Thought process: Normal thought process present Thought content: Normal thought content present Insight: Good insight present (Psych) Judgement: Good judgement present (Psych) Assessment & Plan Assessment & Plan (1) Radiculopathy of cervical region: Code(s): M54.12 - Radiculopathy, cervical region (2) Degeneration, intervertebral disc, cervical: Code(s): M50.30 - Other cervical disc degeneration, unspecified cervical region (3) Spondylosis of cervical joint without myelopathy: Code(s): M47.812 - Spondylosis without myelopathy or radiculopathy, cervical region (4) Implantable intrathecal infusion pump present: Comment: last refill 07/07/22 Code(s): Z96.89 - Presence of other specified functional implants (5) Chronic pain syndrome: Code(s): G89.4 - Chronic pain syndrome (6) Postlaminectomy syndrome: Code(s): M96.1 - Postlaminectomy syndrome, not elsewhere classified (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 Cervicalgia and cervical pain were discussed. MBB C4-C5 C6 is offered patient will think about it. If MBB will result in good pain relief sprint PNS can be offered to the patient. Radiculopathic pain in right upper extremity is discussed. I need to see MRI of the cervical spine. If MRI image will be provided I can plan interlaminar ERIC cervical spine. I recommend also very strongly physical therapy for the spondylosis of cervical spine and radiculopathy of cervical spine. As of his shoulder pain and total shoulder replacement on the left my opinion he is awfully young for this procedure. I offered him PRP left shoulder injection to delay his surgery on the shoulder. I explained to him that insurance companies do not cover the procedure and the cost of the procedure also was explained to the patient. Plan THE PATIENT CAME TODAY IN the office FOR THE CHANGE OF THE MEDICATION IN his PAIN PUMP.? ?The pump was interrogated and the residual amount of fluid was found to be?4. mL. HE WAS POSITIONED supine on the bed AND THE AREA OF THE INTRATHECAL PUMP WAS PREPPED WITH CHLORAPREP. The fenestrated drape was sterilely applied over the area of the pump. Sterile gloves were worn and of the aspiration system was assembled containing 2 in 22 gauge noncoring needle, the needle was connected to extension tubing which was connected to the 20 cc sterile syringe. The pain pump was palpated under the skin in the patient's left abdominal area. The needle was inserted through the skin and the central plug of the pain pump and fluid was aspirated. The clear fluid was going into the syringe the total amount of the fluid was 7 mL .. After that a new batch? of medication was obtained which was containing dilaudid in concentration 4 mg/ml and bupivacaine 40 mg per ml. The admixture was made in two 20 cc syringes prepared by [facility] compounding pharmacy. The syringe was connected to the bacterial filter, and then connected to the extension tubing. After that the medication in the syringe was slowly instilled into the pump with aspirations at 35, 25, 15 and 5 cc villalba and good returns of the medication back to the syringe without any changes in collar indicating presence of blood or interstitial fluid.. after that the needle was removed and sterile dressing was applied in the for of the band-aid.. Orders: Orders PT Evaluation and Treatment Today M47.812 - Spondylosis without myelopathy or radiculopathy, cervical region, M50.30 - Other cervical disc degeneration, unspecified cervical region, M54.12 - Radiculopathy, cervical region Patient Instructions: I here by testify that I spent 38 minutes in conversation with this patient as well as performing detailed physical exam of the cervical spine, as well as planning his care and organizing this note. Coding Level of Care Code Est Pt Level 4 (93341) Procedure Only Diagnoses Radiculopathy of cervical region M54.12 Degeneration, intervertebral disc, cervical M50.30 Spondylosis of cervical joint without myelopathy M47.812 Implantable intrathecal infusion pump present Z96.89 Chronic pain syndrome G89.4 Postlaminectomy syndrome M96.1 [facility] (current) use of opiate analgesic Z79.891
[2024-03-10 09:12] VITALS: BP 140/90; PULSE 71; RESP 16; O2SAT 95; BMI 36.9
== END 2024-03-10 09:05 | disposition home or self-care (01) ==
PROVIDERS: PCP Family Medicine Sports Medicine; Visit Provider Anesthesiology
DX: M54.12 Radiculopathy, cervical region (principal); M50.30 Other cervical disc degeneration, unspecified cervical region; M47.812 Spondylosis without myelopathy or radiculopathy, cervical region; Z96.89 Presence of other specified functional implants; Z45.1 Encounter for adjustment and management of infusion pump
CPT/HCPCS: 95991; 99214

== ENCOUNTER → 2024-03-10 08:26 | Outpatient (BNVA) | payer OTHER, SELFPAY | PROVIDERS: PCP Family Medicine Sports Medicine; Visit Provider Anesthesiology | DX: M47.22 Other spondylosis with radiculopathy, cervical region (principal); M50.30 Other cervical disc degeneration, unspecified cervical region; G89.4 Chronic pain syndrome; M96.1 Postlaminectomy syndrome, not elsewhere classified; Z79.891 Long term (current) use of opiate analgesic; Z96.89 Presence of other specified functional implants | CPT/HCPCS: 99212 ==

== ENCOUNTER 2024-05-30 08:42 | Outpatient (AMB) | payer OTHER, SELFPAY ==
--- NOTE | 2024-05-30 08:46 | A.OFFVIS_ITS ---
Vital Signs 05/30/24 09:32 Height 5 ft 9 in Weight 256 lb BMI 37.8 BP 134/70 Blood Pressure Location Lt brachial Position Sitting Respiration 14 Pulse 72 Pulse Source Pulse Oximeter Pulse Oximetry (%) 97 Oxygen Delivery Method Room Air Intake Visit Reasons: ITDD REFILL Intake Note: Patient comes in for intrathecal medication refill. Reports pain 10. Allergies penicillin V Allergy (Severe, Verified 05/30/24 09:44) anaphylaxis sitagliptin [From Januvia] Allergy (Severe, Verified 05/30/24 09:44) Anaphylaxis HPI Comments Details: Cooper is in my office again to refill medications in his pain pump.? The pump refill note is as below.? He is here today after the surgery he received with orthopedics, it was total shoulder replacement on the right. He is very sling and swathe device as well as cooling device on his right shoulder. The pump refill is as below. He also reports on pain once an hour radiating down to his right upper extremity in form of pins and needles and tingling sensation. That maybe evidence of m inimal nerve root compression and foraminal stenosis. To evaluate this I needs to see his MRI. I can offer him epidural steroid injections in the cervical spine to help his pain. He also needs to go for physical therapy. I explained to him that home exercise program 3 to 4 times a day 15-20 minutes at a time is a crucial part of the physical therapy. He understood me and he will be attending physical therapy in the local [place] office. Pump refill is as below. He again has discrepancy of 3 mL like last time on the pump refill. It bothers me a little bit however since it has not growing and the patient reports good pain relief on the boluses he administers himself the pain medication I am content with the difference. He has chronic diabetic patient on insulin pump. At the same time his social circumstances significantly changed. He lost his job, however he hopes it will be restored. His workman's comp insurance give obstacles to [employer] with next pump refills. His insurance is restored. ? He is suffering from postlaminectomy syndrome and diabetic polyneuropathy. In the past we discussed spinal cord stimulation to help diabetic polyneuropathy, however at this point with insurance difficulties this conversation probably is a moot point. He has intrathecal pain pump for the past 7 years.? The intrathecal pain pump came to the end of life.? He went for the procedure of removal and replacement of intrathecal pain pump on 11/07/2022.? During the procedure we found several kinks of the intrathecal catheter.? Intrathecal catheter was replaced.? Intraoperatively patient had significant bleeding in the spinal wound were insertion of the catheter was made.? The ?snow ?surgical application was used to stop the bleeding in the area of the midline spinal incision.? In the patient's abdominal incision the old pump was found to be encapsulated in the antibiotic pouch.? The pouch was partially excised as it was calcified and causing severe adhesions in surrounding areas. 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 Chronic pain syndrome Postlaminectomy syndrome Surgical History (Updated 11/03/22 @ 11:51 by Arlette Vergara RN) Hx of appendectomy History of back surgery History of surgery Social History Patient Tobacco Use Status: Never used Tobacco Review of Systems Const All systems reviewed & are unremarkable except as noted in HPI and below ENT Reports Normal hearing present Neuro Reports Normal hearing present, Denies Abnormal speech present and Denies Sens ory deficit (Neuro) Physical Exam Vital Signs: Last Vital Signs Pulse 72 05/30/24 09:32 Resp 14 05/30/24 09:32 BP 134/70 05/30/24 09:32 Pulse Ox 97 05/30/24 09:32 Oxygen Delivery Method Room Air 05/30/24 09:32 BMI result Body Mass Index 37.8 Const General: cooperative, healthy appearing, comfortable and well developed; No no acute distress Nutritional Appearance: obese morbidly obese and overweight Orientation/consciousness: patient oriented x3 Limitations: no limitations Eyes General: appearance normal, both eyes and all related structures Pupils: Equal, round and reactive pupils present EOM: EOMs intact bilaterally Neck Other: Limited range of motion of the cervical spine. Unable to extend had backwards due to severe pain. Axial compression does not aggravate the pain. However axial alleviation make his pain much better. Tenderness on palpation mostly on paraspinal as well as central spinal regions at the projection of the C4-C5 C6 and C7 spinous processes. Neck: No full ROM Chest Chest palpation & inspection: normal inspection of the chest Resp Effort & Inspection: normal respiratory effort, able to speak in complete sentences, normal respiratory pattern, no audible wheezes and no cough Cardio Jugular venous distension: no JVD GI Inspection: Yes normal to inspection Back/Spine/Pelvis Other: On the physical examination he has pump in the left abdomen. He also has multiple scars from previous surgeries: He has Pfannenstiel incision in the lower abdomen for the anterior fusion and multiple midline and paramedian scars in projection of L5 and S1 vertebra as on the back. He denies weakness in bilateral lower extremities he denies incontinence with urine and/or stool he denies Valsalva maneuver positive. SLR is positive on the right and equivocal on the left. Neuro General: patient oriented x3 Cranial nerves: Yes Equal, round and reactive pupils present and Yes Normal h earing present Cognition (Neuro): normal cognition Speech: No Abnormal speech present Gait exam (Neuro): Normal gait present Motor exam (neuro): 5/5 motor strength present throughout Sensory Exam: No Sensory deficit (Neuro) Psych Appearance: grossly normal Mental Status: mental status grossly normal Speech and movement: Normal speech and movement present Affect: normal affect Attitude: cooperative Thought process: Normal thought process present Thought content: Normal thought content present Insight: Good insight present (Psych) Judgement: Good judgement present (Psych) Assessment & Plan Assessment & Plan (1) Radiculopathy of cervical region: Code(s): M54.12 - Radiculopathy, cervical region Category: Medical (2) Degeneration, intervertebral disc, cervical: Code(s): M50.30 - Other cervical disc degeneration, unspecified cervical region Category: Medical (3) Spondylosis of cervical joint without myelopathy: Code(s): M47.812 - Spondylosis without myelopathy or radiculopathy, cervical region Category: Medical (4) Implantable intrathecal infusion pump present: Comment: last refill 07/07/22 Code(s): Z96.89 - Presence of other specified functional implants Category: Medical (5) Chronic pain syndrome: Code(s): G89.4 - Chronic pain syndrome Category: Medical (6) Postlaminectomy syndrome: Code(s): M96.1 - Postlaminectomy syndrome, not elsewhere classified Category: Medical (7) 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 Good mobilities reported. He is still having significant pain syndrome from the shoulder surgery. I recommend also very strongly physical therapy for the spondylosis of cervical spine and radiculopathy of cervical spine. Plan THE PATIENT CAME TODAY IN the office FOR THE CHANGE OF THE MEDICATION IN his PAIN PUMP.? ?The pump was interrogated and the residual amount of fluid was found to be?3.9 mL. HE WAS POSITIONED supine on the bed AND THE AREA OF THE INTRATHECAL PUMP WAS PREPPED WITH CHLORAPREP. The fenestrated drape was sterilely applied over the area of the pump. Sterile gloves were worn and of the aspiration system was assembled containing 2 in 22 gauge noncoring needle, the needle was connected to extension tubing which was connected to the 20 cc sterile syringe. The pain pump was palpated under the skin in the patient's left abdominal area. The needle was inserted through the skin and the central plug of the pain pump and fluid was aspirated. The clear fluid was going into the syringe the total amount of the fluid was 6.5 mL .. After that a new batch? of medication was obtained which was containing dilaudid in concentration 4 mg/ml and bupivacaine 40 mg per ml. The admixture was made in two 20 cc syringes prepared by [facility] compounding pharmacy. The syringe was connected to the bacterial filter, and then connected to the extension tubing. After that the medication in the syringe was slowly instilled into the pump with aspirations at 35, 25, 15 and 5 cc villalba and good returns of the medication back to the syringe without any changes in collar indicating presence of blood or interstitial fluid.. after that the needle was removed and sterile dressing was applied in the for of the band-aid.. Coding Level of Care Code Est Pt Level 3 (64943) Procedure Only Diagnoses Radiculopathy of cervical region M54.12 Degeneration, intervertebral disc, cervical M50.30 Spondylosis of cervical joint without myelopathy M47.812 Implantable intrathecal infusion pump present Z96.89 Chronic pain syndrome G89.4 Postlaminectomy syndrome M96.1 senior care (current) use of opiate analgesic Z79.891
[2024-05-30 09:32] VITALS: BP 134/70; PULSE 72; RESP 14; O2SAT 97; BMI 37.8
== END 2024-05-30 09:26 | disposition home or self-care (01) ==
PROVIDERS: PCP Family Medicine Sports Medicine; Visit Provider Anesthesiology
DX: M54.12 Radiculopathy, cervical region (principal); M50.30 Other cervical disc degeneration, unspecified cervical region; M47.812 Spondylosis without myelopathy or radiculopathy, cervical region; Z96.89 Presence of other specified functional implants; Z45.1 Encounter for adjustment and management of infusion pump; G89.4 Chronic pain syndrome; M96.1 Postlaminectomy syndrome, not elsewhere classified; Z79.891 Long term (current) use of opiate analgesic
CPT/HCPCS: 95991; 99213

== ENCOUNTER → 2024-05-30 08:42 | Outpatient (BNVA) | payer OTHER, SELFPAY | PROVIDERS: PCP Family Medicine Sports Medicine; Visit Provider Anesthesiology | DX: Z45.1 Encounter for adjustment and management of infusion pump (principal); G89.4 Chronic pain syndrome; M47.22 Other spondylosis with radiculopathy, cervical region; M50.30 Other cervical disc degeneration, unspecified cervical region; M96.1 Postlaminectomy syndrome, not elsewhere classified | CPT/HCPCS: 99212 ==

== ENCOUNTER 2024-08-18 08:44 | Outpatient (AMB) | payer OTHER, SELFPAY ==
--- NOTE | 2024-08-18 08:47 | A.OFFVIS_ITS ---
Vital Signs 08/18/24 09:27 Height 5 ft 9 in Weight 258 lb BMI 38.1 BP 126/68 Blood Pressure Location Lt brachial Position Sitting Respiration 16 Pulse 84 Pulse Source Pulse Oximeter Pulse Oximetry (%) 98 Oxygen Delivery Method Room Air Intake Visit Reasons: ITDD REFILL Intake Note: Patient comes in for intrathecal medication refill. Reports pain 6/10. Allergies penicillin V Allergy (Severe, Verified 08/18/24 09:28) anaphylaxis sitagliptin [From Januvia] Allergy (Severe, Verified 08/18/24 09:28) Anaphylaxis HPI Comments Details: Cooper is in my office again to refill medications in his pain pump.? The pump refill note is as below.? He did not present any complains on pain in the shoulder or neck. Pump refill is as below. He again has discrepancy of 3 mL like last time on the pump refill. The discrepancy is stable therefore I decided not to investigated further. He has chronic diabetic patient on insulin pump. At the same time his social circumstances significantly changed. He lost his job, however he hopes it will be restored. His workman's comp insurance give obstacles to [employer] with next pump refills. His insurance is restored. ? He is suffering from postlaminectomy syndrome and diabetic polyneuropathy. In the past we discussed spinal cord stimulation to help diabetic polyneuropathy, however at this point with insurance difficulties this conversation probably is a moot point. He has intrathecal pain pump for the past 7 years.? The intrathecal pain pump came to the end of life.? He went for the procedure of removal and replacement of intrathecal pain pump on 11/07/2022.? During the procedure we found several kinks of the intrathecal catheter.? Intrathecal catheter was replaced.? Intraoperatively patient had significant bleeding in the spinal wound were insertion of the catheter was made.? The ?snow ?surgical application was used to stop the bleeding in the area of the midline spinal incision.? In the patient's abdominal incision the old pump was found to be encapsulated in the antibiotic pouch.? The pouch was partially excised as it was calcified and causing severe adhesions in surrounding areas. [facility] Medical History (Updated 03/10/24 @ 09:04 by Nima Russell MD) FERNANDO on CPAP Elevated cholesterol Diabetes GERD (gastroesophageal reflux disease) HTN (hypertension) Implantable intrathecal infusion pump present [facility] (current) use of opiate analgesic Chronic pain syndrome Postlaminectomy syndrome Surgical History (Updated 11/03/22 @ 11:51 by Arlette Vergara RN) Hx of appendectomy History of back surgery History of surgery Social History Patient Tobacco Use Status: Never used Tobacco Review of Systems Const All systems reviewed & are unremarkable except as noted in HPI and below ENT Reports Normal hearing present Neuro Reports Normal hearing present, Denies Abnormal speech present and Denies Sensory deficit (Neuro) Physical Exam Vital Signs: Last Vital Signs Pulse 84 08/18/24 09:27 Resp 16 08/18/24 09:27 BP 126/68 08/18/24 09:27 Pulse Ox 98 08/18/24 09:27 Oxygen Delivery Method Room Air 08/18/24 09:27 BMI result Body Mass Index 38.1 Const General: cooperative, healthy appearing, comfortable and well developed; No no acute distress Nutritional Appearance: obese morbidly obese and overweight Orientation/consciousness: patient oriented x3 Limitations: no limitations Eyes General: appearance normal, both eyes and all related structures Pupils: Equal, round and reactive pupils present EOM: EOMs intact bilaterally Neck Other: Limited range of motion of the cervical spine. Unable to extend had backwards due to severe pain. Axial compression does not aggravate the pain. However axial alleviation make his pain much better. Tenderness on palpation mostly on paraspinal as well as central spinal regions at the projection of the C4-C5 C6 and C7 spinous processes. Neck: No full ROM Chest Chest palpation & inspection: normal inspection of the chest Resp Effort & Inspection: normal respiratory effort, able to speak in complete sentences, normal respiratory pattern, no audible wheezes and no cough Cardio Jugular venous distension: no JVD GI Inspection: Yes normal to inspection Back/Spine/Pelvis Other: On the physical examination he has pump in the left abdomen. He also has multiple scars from previous surgeries: He has Pfannenstiel incision in the lower abdomen for the anterior fusion and multiple midline and paramedian scars in projection of L5 and S1 vertebra as on the back. He denies weakness in bilateral lower extremities he denies incontinence with urine and/or stool he denies Valsalva maneuver positive. SLR is positive on the right and equivocal on the left. Neuro General: patient oriented x3 Cranial nerves: Yes Equal, round and reactive pupils present and Yes Normal hearing present Cognition (Neuro): normal cognition Speech: No Abnormal speech present Gait exam (Neuro): Normal gait present Motor exam (neuro): 5/5 motor strength present throughout Sensory Exam: No Sensory deficit (Neuro) Psych Appearance: grossly normal Mental Status: mental status grossly normal Speech and movement: Normal speech and movement present Affect: normal affect Attitude: cooperative Thought process: Normal thought process present Thought content: Normal thought content present Insight: Good insight present (Psych) Judgement: Good judgement present (Psych) Assessment & Plan Assessment & Plan (1) Radiculopathy of cervical region: Code(s): M54.12 - Radiculopathy, cervical region Category: Medical (2) Degeneration, intervertebral disc, cervical: Code(s): M50.30 - Other cervical disc degeneration, unspecified cervical region Category: Medical (3) Spondylosis of cervical joint without myelopathy: Code(s): M47.812 - Spondylosis without myelopathy or radiculopathy, cervical region Category: Medical (4) Implantable intrathecal infusion pump present: Comment: last refill 07/07/22 Code(s): Z96.89 - Presence of other specified functional implants Category: Medical (5) Chronic pain syndrome: Code(s): G89.4 - Chronic pain syndrome Category: Medical (6) Postlaminectomy syndrome: Code(s): M96.1 - Postlaminectomy syndrome, not elsewhere classified Category: Medical (7) [facility] (current) use of opiate analgesic: Code(s): 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 There is a discrepancy with the residual amounr per each rafill it is about 3 mls extra fluid on top of what the devise calculate as the leftover ( Plan THE PATIENT CAME TODAY IN the office FOR THE CHANGE OF THE MEDICATION IN his PAIN PUMP.? ?The pump was interrogated and the residual amount of fluid was found to be?3.7 mL. HE WAS POSITIONED supine on the bed AND THE AREA OF THE INTRATHECAL PUMP WAS PREPPED WITH CHLORAPREP. The fenestrated drape was sterilely applied over the area of the pump. Sterile gloves were worn and of the aspiration system was assembled containing 2 in 22 gauge noncoring needle, the needle was connected to extension tubing which was connected to the 20 cc sterile syringe. The pain pump was palpated under the skin in the patient's left abdominal area. The needle was inserted through the skin and the central plug of the pain pump and fluid was aspirated. The clear fluid was going into the syringe the total amount of the fluid was 6.5 mL .. After that a new batch? of medication was obtained which was containing dilaudid in concentration 4 mg/ml and bupivacaine 40 mg per ml. The admixture was made in two 20 cc syringes prepared by [facility] compounding pharmacy. The syringe was connected to the bacterial filter, and then connected to the extension tubing. After that the medication in the syringe was slowly instilled into the pump with aspirations at 35, 25, 15 and 5 cc villalba and good returns of the medication back to the syringe without any changes in collar indicating presence of blood or interstitial fluid.. after that the needle was removed and sterile dressing was applied in the for of the band-aid.. 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
[2024-08-18 09:27] VITALS: BP 126/68; PULSE 84; RESP 16; O2SAT 98; BMI 38.1
== END 2024-08-18 09:10 | disposition home or self-care (01) ==
PROVIDERS: PCP Family Medicine Sports Medicine; Visit Provider Anesthesiology
DX: M54.12 Radiculopathy, cervical region (principal); M50.30 Other cervical disc degeneration, unspecified cervical region; M47.812 Spondylosis without myelopathy or radiculopathy, cervical region; Z96.89 Presence of other specified functional implants; Z45.1 Encounter for adjustment and management of infusion pump; G89.4 Chronic pain syndrome; M96.1 Postlaminectomy syndrome, not elsewhere classified; Z79.891 Long term (current) use of opiate analgesic
CPT/HCPCS: 95991; 99213

== ENCOUNTER → 2024-08-18 08:44 | Outpatient (BNVA) | payer OTHER, SELFPAY | PROVIDERS: PCP Family Medicine Sports Medicine; Visit Provider Anesthesiology | DX: Z45.1 Encounter for adjustment and management of infusion pump (principal); M50.30 Other cervical disc degeneration, unspecified cervical region; M47.22 Other spondylosis with radiculopathy, cervical region; G89.4 Chronic pain syndrome; M96.1 Postlaminectomy syndrome, not elsewhere classified; Z79.891 Long term (current) use of opiate analgesic | CPT/HCPCS: 99212 ==

== ENCOUNTER 2024-11-09 08:45 | Outpatient (AMB) | payer OTHER, SELFPAY ==
[2024-11-09 09:16] VITALS: BP 157/74; PULSE 66; O2SAT 96; BMI 40.8
--- NOTE | 2024-11-09 09:16 | MHC.OFFVIS ---
Vital Signs 11/09/24 09:16 Height 5 ft 9 in Weight 276 lb BMI 40.8 BP 157/74 H Blood Pressure Location Lt brachial Position Sitting Pulse 66 Pulse Source Pulse Oximeter Pulse Oximetry (%) 96 Oxygen Delivery Method Room Air Oxygen Flow Rate 96 Intake Visit Reasons: ITDD REFILL Allergies penicillin V Allergy (Severe, Verified 11/09/24 09:23) anaphylaxis sitagliptin [From Januvia] Allergy (Severe, Verified 11/09/24 09:23) Anaphylaxis Medication List - Last Reconciled 11/09/24 by Martina Velazco, ANGIO TECHNOLOGIST atenolol 50 mg PO DAILY blood-glucose sensor (Dexcom G6 Sensor device) As directed blood-glucose transmitter (Dexcom G6 Transmitter device) As directed furosemide 10 mg PO QAM insulin lispro (Humalog U-100 Insulin) subcut omeprazole 20 mg PO DAILY sertraline (Zoloft) 200 mg PO DAILY tirzepatide (Mounjaro) mg subcut trazodone 150 mg PO DAILY HPI Comments Details: Cooper is in my office again to refill medications in his pain pump.? The pump refill note is as below.? He did not present any complains on pain in the shoulder or neck. Pump refill is as below. One more time he has a discrepancy of 3 mL like last time on the pump refill. The discrepancy is stable . He has chronic diabetic patient on insulin pump. At the same time his social circumstances significantly changed. He lost his job, however he hopes it will be restored. His workman's comp insurance give obstacles to [employer] with next pump refills. His insurance is restored. ? He is suffering from postlaminectomy syndrome and diabetic polyneuropathy. In the past we discussed spinal cord stimulation to help diabetic polyneuropathy, however at this point with insurance difficulties this conversation probably is a moot point. He has intrathecal pain pump for the past 7 years.? The intrathecal pain pump came to the end of life.? He went for the procedure of removal and replacement of intrathecal pain pump on 11/07/2022.? During the procedure we found several kinks of the intrathecal catheter.? Intrathecal catheter was replaced.? Intraoperatively patient had significant bleeding in the spinal wound were insertion of the catheter was made.? The ?snow ?surgical application was used to stop the bleeding in the area of the midline spinal incision.? In the patient's abdominal incision the old pump was found to be encapsulated in the antibiotic pouch.? The pouch was partially excised as it was calcified and causing severe adhesions in surrounding areas. 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 Chronic pain syndrome Postlaminectomy syndrome Surgical History (Updated 11/03/22 @ 11:51 by Arlette Vergara RN) Hx of appendectomy History of back surgery History of surgery Social History Patient Tobacco Use Status: Never used Tobacco Review of Systems Const All systems reviewed & are unremarkable except as noted in HPI and below ENT Reports Normal hearing present Neuro Reports Normal hearing present, Denies Abnormal speech present and Denies Sensory deficit (Neuro) Physical Exam Vital Signs: Last Vital Signs Pulse 66 11/09/24 09:16 BP 157/74 H 11/09/24 09:16 Pulse Ox 96 11/09/24 09:16 Oxygen Delivery Method Room Air 11/09/24 09:16 Oxygen Flow Rate 96 11/09/24 09:16 BMI result Body Mass Index 40.8 Const General: cooperative, healthy appearing, comfortable and well developed; No no acute distress Nutritional Appearance: obese morbidly obese and overweight Orientation/consciousness: patient oriented x3 Limitations: no limitations Eyes General: appearance normal, both eyes and all related structures Pupils: Equal, round and reactive pupils present EOM: EOMs intact bilaterally Neck Other: Limited range of motion of the cervical spine. Unable to extend had backwards due to severe pain. Axial compression does not aggravate the pain. However axial alleviation make his pain much better. Tenderness on palpation mostly on paraspinal as well as central spinal regions at the projection of the C4-C5 C6 and C7 spinous processes. Neck: No full ROM Chest Chest palpation & inspection: normal inspection of the chest Resp Effort & Inspection: normal respiratory effort, able to speak in complete sentences, normal respiratory pattern, no audible wheezes and no cough Cardio Jugular venous distension: no JVD GI Inspection: Yes normal to inspection Back/Spine/Pelvis Other: On the physical examination he has pump in the left abdomen. He also has multiple scars from previous surgeries: He has Pfannenstiel incision in the lower abdomen for the anterior fusion and multiple midline and paramedian scars in projection of L5 and S1 vertebra as on the back. He denies weakness in bilateral lower extremities he denies incontinence with urine and/or stool he denies Valsalva maneuver positive. SLR is positive on the right and equivocal on the left. Neuro General: patient oriented x3 Cranial nerves: Yes Equal, round and reactive pupils present and Yes Normal hearing present Cognition (Neuro): normal cognition Speech: No Abnormal speech present Gait exam (Neuro): Normal gait present Motor exam (neuro): 5/5 motor strength present throughout Sensory Exam: No Sensory deficit (Neuro) Psych Appearance: grossly normal Mental Status: mental status grossly normal Speech and movement: Normal speech and movement present Affect: normal affect Attitude: cooperative Thought process: Normal thought process present Thought content: Normal thought content present Insight: Good insight present (Psych) Judgement: Good judgement present (Psych) Assessment & Plan Assessment & Plan (1) Radiculopathy of cervical region: Code(s): M54.12 - Radiculopathy, cervical region Category: Medical (2) Degeneration, intervertebral disc, cervical: Code(s): M50.30 - Other cervical disc degeneration, unspecified cervical region Category: Medical (3) Spondylosis of cervical joint without myelopathy: Code(s): M47.812 - Spondylosis without myelopathy or radiculopathy, cervical region Category: Medical (4) Implantable intrathecal infusion pump present: Comment: last refill 07/07/22 Code(s): Z96.89 - Presence of other specified functional implants Category: Medical (5) Chronic pain syndrome: Code(s): G89.4 - Chronic pain syndrome Category: Medical (6) Postlaminectomy syndrome: Code(s): M96.1 - Postlaminectomy syndrome, not elsewhere classified Category: Medical (7) USP (current) use of opiate analgesic: Code(s): 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 There is a discrepancy with the residual amounr per each rafill it is about 3 mls extra fluid on top of what the devise calculate as the leftover. He had to move and now he lives in [facility]. His insurance is [employer] and the it pace for his pump refills with no regard of the location. He can not find anyone who take care of his pump refills back in [place] so he is driving 5 hours up and down to refill his device. He will be refilled on January 30 2025. Plan THE PATIENT CAME TODAY IN the office FOR THE CHANGE OF THE MEDICATION IN his PAIN PUMP.? ?The pump was interrogated and the residual amount of fluid was found to be?3.4 mL. HE WAS POSITIONED supine on the bed AND THE AREA OF THE INTRATHECAL PUMP WAS PREPPED WITH CHLORAPREP. The fenestrated drape was sterilely applied over the area of the pump. Sterile gloves were worn and of the aspiration system was assembled containing 2 in 22 gauge noncoring needle, the needle was connected to extension tubing which was connected to the 20 cc sterile syringe. The pain pump was palpated under the skin in the patient's left abdominal area. The needle was inserted through the skin and the central plug of the pain pump and fluid was aspirated. The clear fluid was going into the syringe the total amount of the fluid was 6.9 mL .. After that a new batch? of medication was obtained which was containing dilaudid in concentration 4 mg/ml and bupivacaine 40 mg per ml. The admixture was made in two 20 cc syringes prepared by [facility] compounding pharmacy. The syringe was connected to the bacterial filter, and then connected to the extension tubing. After that the medication in the syringe was slowly instilled into the pump with aspirations at 35, 25, 15 and 5 cc villalba and good returns of the medication back to the syringe without any changes in collar indicating presence of blood or interstitial fluid.. after that the needle was removed and sterile dressing was applied in the for of the band-aid.. 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
--- OUTSIDE RECORDS SUMMARY | 2024-11-09 23:10 | XMS_ITS ---
Author Name [facility] Organization Unknown Results Test Name/Text Value Interpretation Date Range Source POC Glucose 211mg/dL Above high normal [id number] 65 - 99 [facility] POC Glucose 176mg/dL Above high normal [id number] 65 - 99 [facility] POC Glucose 145mg/dL Above high normal [id number] 65 - 99 [facility] POC Glucose 195mg/dL Above high normal [id number] 65 - 99 [facility] POC Glucose 169mg/dL Above high normal [id number] 65 - 99 [facility] Hct VFr Bld Auto 32.1% Below low normal [id number] 39 - 54 [facility] Hgb Bld-mCnc 11g/dL Below low normal [id number] 13 - 17 .7 [facility] POC Glucose 192mg/dL Above high normal [id number] 65 - 99 [facility] POC Glucose 236mg/dL Above high normal [id number] 65 - 99 [facility] POC Glucose 139mg/dL Above high normal [id number] 65 - 99 [facility] POC Glucose 79mg/dL Normal [id number] 65 - 99 [facility] Hgb A1c MFr Bld 9.4% Above high normal [id number] - 5 .7 [facility] Est. average glucose Bld gHb Est-mCnc 223mg/dL Normal [id number] [facility] Result Normal [id number] - [facility] RBC num Bld Auto 4.74Mil/uL Normal [id number] 4.5 - 6.2 [facility] RDW RBC Auto-Rto 13.5% Normal [id number] 11.5 - 14. 5 [facility] PMV Bld Auto 8.5fL Normal [id number] 7.5 - 12.[address] MCH RBC Qn Auto 28.5pg Normal [id number] 27 - 31 H [facility] WBC num Bld Auto 4.7Thou/uL Normal [id number] 4 - 11 [facility] Platelet num Bld Auto 131Thou/uL Below low normal [id number] 05 150 - 450 [facility] MCHC RBC Auto-mCnc 34.3g/dL Normal [id number] 30 - 36 [facility] Immature Platelet Fraction 0.8% Below low normal 1.2 - 8.6 [facility] Hct VFr Bld Auto 39.4% Normal [id number] 39 - 54 [facility] MCV RBC Auto 83fL Normal [id number] 80 - 100 [facility] T Hgb Bld-mCnc 13.5g/dL Normal [id number] 13 - 17.7 [facility] T Calcium SerPl-mCnc 9.6mg/dL Normal [id number] 8.7 - 10 .5 [facility] BUN SerPl-mCnc 11mg/dL Normal [id number] 8 - 21 HH CCT Creat SerPl-mCnc 0.7mg/dL Normal [id number] 0.5 - 1.3 [facility] GFR/BSA.pred SerPlBld KMP-DHO-CsKLyx 90 Normal [id number] 59 - [facility] Chloride SerPl-sCnc 101mmol/L Normal [id number] 98 - 10 7 [facility] BUN/Creat SerPl 16Ratio Normal [id number] 10 - 25 H [facility] CO2 SerPl-sCnc 27mmol/L Normal [id number] 22 - 33 HH CCT Anion Gap Bld-sCnc 11 Normal [id number] [facility] Potassium SerPl-sCnc 4mmol/L Normal [id number] 3.4 - 5.3 [facility] Glucose SerPl-mCnc 172mg/dL Above high normal [id number] 65 - 99 [facility] Sodium SerPl-sCnc 139mmol/L Normal [id number] 136 - 145 [facility] History of Medication Use Medication Directions Dispensed Refills Start Date End Date Status traZODone (DESYREL) 150 mg tablet TAKE 1 TABLET BY MOUTH EVERY DAY AT BEDTIME FOR 90 DAYS 09/05/20 24 active LANTUS SOLOSTAR U-100 INSULIN 100 UNIT/ML (3 ML) SUBCUTANEOUS PEN 75 units twice a day 09/05/20 24 active omeprazole (PRILOSEC) 20 mg capsule Take 1 capsule (20 mg total) by mouth daily. 10/07/20 24 active sertraline (ZOLOFT) 100 mg tablet Take 2 tablets (200 mg total) by mouth daily. 09/05/20 active sertraline (ZOLOFT) 100 mg tablet TAKE 2 TABLETS BY MOUTH EVERY DAY FOR 90 DAYS 09/05/20 24 aborted albuterol sulfate 90 mcg/actuation HFA aerosol inhaler INHALE 2 PUFFS BY MOUTH EVERY 4 HOURS NEEDED FOR 7 DAYS 09/05/20 active MOUNJARO 7.5 mg/0.5 mL PnIj INJECT 7.5 MG SUBCUTANEOUSLY WEEKLY 09/05/20 active OZEMPIC 1 mg/dose (4 mg/3 mL) pen injector INJECT 1 MG SUBCUTANEOUSLY EVERY WEEK 09/05/20 active furosemide (LASIX) 20 mg tablet TAKE 1 TABLET BY MOUTH EVERY DAY FOR 90 DAYS 09/05/20 24 active TRESIBA FLEXTOUCH U-100 INSULIN 100 unit/mL (3 mL) pen Pt is using 150Unit 09/05/20 active atenoloL (TENORMIN) 50 mg tablet Take 1 tablet (50 mg total) by mouth daily. 09/05/20 24 active HUMALOG U-100 INSULIN 100 unit/mL vial PLEASE SEE ATTACHED FOR DETAILED DIRECTIONS 09/05/20 active DEXCOM G6 TRANSMITTER device 09/05/20 aborted diphenhydrAMINE (BENADRYL) 25 MG tablet Take 25 mg by mouth as needed for allergies or itching. Per bottle instructions 06/09/20 24 active dextrose 1 g Chew Tab Chew 2 g daily as needed for low blood sugar. 06/01/20 24 active ibuprofen (MOTRIN) 200 MG tablet Take 800 mg by mouth 3 times daily (every 8 hours) as needed for moderate pain. 05/31/20 24 active aspirin enteric coated (ECOTRIN LOW STRENGTH) 81 MG EC tablet Take 1 tablet (81 mg total) by mouth every 12 (twelve) hours around the clock. 05/30/20 24 active sulfamethoxazole-tr imethoprim (BACTRIM DS,SEPTRA DS) 800-160 MG per tablet Take 1 tablet by mouth 2 (two) times a day. 05/30/20 24 active acetaminophen (TYLENOL) 325 MG tablet Take 3 tablets (975 mg total) by mouth every 8 (eight) hours around the clock. 05/30/20 24 active oxyCODONE (ROXICODONE) 5 MG immediate release tablet Take 1 tablet (5 mg total) by mouth every 4 (four) hours as needed for severe pain. Max Daily Amount: 30 mg 05/30/20 24 active gabapentin (NEURONTIN) 100 MG capsule Take 2 capsules (200 mg total) by mouth 2 (two) times a day. 05/30/20 24 active senna-docusate (SENNA-S) 8.6-50 MG Take 2 tablets by mouth nightly. 05/30/20 24 active celeCOXIB (CeleBREX) 200 MG capsule Take 1 capsule (200 mg total) by mouth 2 (two) times a day. 05/30/20 24 active atenolol (TENORMIN) 50 MG tablet Take 1 tablet (50 mg total) by mouth daily. 05/07/20 24 active OMEprazole (PriLOSEC) 20 MG capsule Take 1 capsule (20 mg total) by mouth daily. 05/07/20 24 active Ozempic, 0.25 or 0.5 MG/DOSE, 2 MG/3ML prefilled pen injection INJECT 0.5 MG SUBCUTANEOUSLY EVERY WEEK 05/07/20 24 active UNABLE TO FIND Inject 1 Application as directed daily at the same time. Pain pump hydromorphone 1.2005 mg/ bupivicane 12.005mg Pt can have up to 3 boluses daily each bolus has hydromorphone .2201 mg and bupivicaine 2.201 mg 05/07/20 24 active traZODone (DESYREL) 150 MG tablet TAKE 1 TABLET BY MOUTH EVERY DAY AT BEDTIME FOR 90 DAYS 05/07/20 24 active furosemide (LASIX) 20 MG tablet Take 1 tablet (20 mg total) by mouth daily. 05/07/20 24 active insulin glargine (Lantus SoloStar) 100 units/mL prefilled pen injection Inject 75 Units under the skin 2 (two) times a day in the morning and the early afternoon. 05/07/20 24 active sertraline (ZOLOFT) 100 MG tablet Take 2 tablets (200 mg total) by mouth daily. 05/07/20 24 active insulin lispro (HumaLOG) 100 units/mL injection INJECT 1 UNIT SUBCUTANEOUSLY FOR EVERY 5 GRAMS OF CARBS, SCALE WITH MEALS DIRECTED BETWEEN 40-70UNITS/DAY 05/07/20 24 active Magnesium Oxide 400 MG Cap capsule Take 1 capsule (400 mg total) by mouth daily. Take 2 hours apart from other medication; take with food 04/10/20 24 active omeprazoleTakeNo franco e recordedNo form recordedNo frequency recordedNo route recordedNo set duration recordedNo set duration amount recordedactiveNo dosage strength recordedNo dosage strength units of measure recorded 03/02/20 24 active atenololTakeNo date recordedNo form recordedNo frequency recordedNo route recordedNo set duration recordedNo set duration amount recordedsuspendedNo dosage strength recordedNo dosage strength units of measure recorded 03/02/20 24 suspended Basaglar KwikPen U-1 00 InsulinTakeNo date recordedNo form recordedNo frequency recordedNo route recordedNo set duration recordedNo set duration amount recordedactiveNo dosage strength recordedNo dosage strength units of measure recorded 03/02/20 24 active TrulicityTakeNo date recordedNo form recordedNo frequency recordedNo route recordedNo set duration recordedNo set duration amount recordedactiveNo dosage strength recordedNo dosage strength units of measure recorded 03/02/20 24 active bupivacaineTakeNo da te recordedNo form recordedNo frequency recordedNo route recordedNo set duration recordedNo set duration amount recordedsuspendedNo dosage strength recordedNo dosage strength units of measure recorded 03/02/20 24 suspended DilaudidTakeNo date recordedNo form recordedNo frequency recordedNo route recordedNo set duration recordedNo set duration amount recordedactiveNo dosage strength recordedNo dosage strength units of measure recorded 03/02/20 24 active albuterol sulfateTak e 2 (inhalation) every 4 hours PRN for 7 [id number] aerosol inhalerevery 4 [id number] ozqtfk82laf/actuation 03/02/20 24 suspended Humalog Usman KwikP en U-100TakeNo date recordedNo form recordedNo frequency recordedNo route recordedNo set duration recordedNo set duration amount recordedsuspendedNo dosage strength recordedNo dosage strength units of measure recorded 03/02/20 24 suspended doxycycline hyclateT ric 1 capsule (Oral) 2 times per day for 7 [id number] times per [id number] 0mg 03/02/20 24 suspended ZoloftTakeNo date recordedNo form recordedNo frequency recordedNo route recordedNo set duration recordedNo set duration amount recordedactiveNo dosage strength recordedNo dosage strength units of measure recorded 03/02/20 24 active NaprosynTake 1 Table t (oral) 2 times per day for 14 [id number] times per [id number] g 03/02/20 24 active Problems Problem Status Onset Date Problem Type Date of Resolution Source Type 2 diabetes mellitus without complication, with long-term current use of insulin (HC Code) (HC CODE) (HC Code) active EncounterDiagnosisAct CT_YAL EUC Encounter for medication refill active EncounterDiagnosisAct C T_YALEUC Type 1 diabetes mellitus with unspecified complications active ProblemAct CT_PHYSONE Cervical disc disorder with radiculopathy, unspecified cervical region active 2024-02-29 ProblemAct CT_PHYSONE Palpitations active 2024-05-05 ProblemAct [facility] S/P shoulder replacement, right active 2024-05-26 ProblemAct [facility] Anxiety active 2021-10-19 ProblemAct [facility] Moderate recurrent major depression active 2022-05-27 ProblemAct [facility] Arthritis of right shoulder region active 2024-05-05 ProblemAct [facility] FERNANDO (obstructive sleep apnea) active 2024-05-05 ProblemAct [facility] Acute blood loss anemia active 2024-05-27 ProblemAct [facility] Type 2 diabetes mellitus without complication, without long-term current use of insulin active 2021-10-19 ProblemAct [facility] Polyneuropathy due to type 2 diabetes mellitus active 2022-05-27 ProblemAct [facility] Chronic lower back pain active 2024-05-05 ProblemAct [facility] Morbid obesity active 2024-05-[address] Bilateral lower extremity edema active 2024-05-05 ProblemAct [facility] Pain management active 2024-05-26 ProblemAct [facility] Mild persistent asthma, uncomplicated active ProblemAct CT_PHYSONE Pain in right shoulder active 2024-02-29 ProblemAct CT_PHYSONE Immunizations Vaccine Date Source Lot Number Status Influenza, injectable, quadr ivalent, preservative free 09/19/2023 CT_YALEUC [id number] completed
== END 2024-11-09 09:15 | disposition home or self-care (01) ==
PROVIDERS: PCP Family Medicine Sports Medicine; Visit Provider Anesthesiology
DX: M54.12 Radiculopathy, cervical region (principal); M50.30 Other cervical disc degeneration, unspecified cervical region; M47.812 Spondylosis without myelopathy or radiculopathy, cervical region; Z96.89 Presence of other specified functional implants; Z45.1 Encounter for adjustment and management of infusion pump; G89.4 Chronic pain syndrome; M96.1 Postlaminectomy syndrome, not elsewhere classified; Z79.891 Long term (current) use of opiate analgesic
CPT/HCPCS: 95991; 99213

== ENCOUNTER → 2024-11-09 08:45 | Outpatient (BNVA) | payer OTHER, SELFPAY | PROVIDERS: PCP Family Medicine Sports Medicine; Visit Provider Anesthesiology | DX: Z45.1 Encounter for adjustment and management of infusion pump (principal); M96.1 Postlaminectomy syndrome, not elsewhere classified; E11.42 Type 2 diabetes mellitus with diabetic polyneuropathy; M54.12 Radiculopathy, cervical region; M50.30 Other cervical disc degeneration, unspecified cervical region; M47.812 Spondylosis without myelopathy or radiculopathy, cervical region; G89.4 Chronic pain syndrome; Z96.41 Presence of insulin pump (external) (internal); Z79.891 Long term (current) use of opiate analgesic | CPT/HCPCS: 99212 ==

== ENCOUNTER 2025-01-30 13:30 | Outpatient (AMB) | payer OTHER, SELFPAY ==
--- NOTE | 2025-01-30 13:33 | A.OFFVIS_ITS ---
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 The pump refill note is as below.? He did not present any complains on pain in the shoulder or neck. He is doing OK with his pain pump although complains on more severe pain - he relates it to severe winter in [place], [place] where he is currently lives and works. Pump refill is as below. One more time he has a discrepancy of 3.5 mL like last time on the pump refill. The discrepancy is more or less stable . He has chronic diabetic patient on insulin pump. At the same time his social circumstances significantly changed. He lost his job, however he hopes it will be restored. His workman's comp insurance give obstacles to [employer] with next pump refills. His insurance is restored. ? He is suffering from postlaminectomy syndrome and diabetic polyneuropathy. In the past we discussed spinal cord stimulation to help diabetic polyneuropathy, however at this point with insurance difficulties this conversation probably is a moot point. He has intrathecal pain pump for the past 7 years.? The intrathecal pain pump came to the end of life.? He went for the procedure of removal and replacement of intrathecal pain pump on 11/07/2022.? During the procedure we found several kinks of the intrathecal catheter.? Intrathecal catheter was replaced.? Intraoperatively patient had significant bleeding in the spinal wound were insertion of the catheter was made.? The ?snow ?surgical application was used to stop the bleeding in the area of the midline spinal incision.? In the patient's abdominal incision the old pump was found to be encapsulated in the antibiotic pouch.? The pouch was partially excised as it was calcified and causing severe adhesions in surrounding areas. [facility] Medical History (Updated 03/10/24 @ 09:04 by Nima Russell MD) FERNANDO on CPAP Elevated cholesterol Diabetes GERD (gastroesophageal reflux disease) HTN (hypertension) Implantable intrathecal infusion pump present correction (current) use of opiate analgesic Chronic pain syndrome Postlaminectomy syndrome Surgical History (Updated 11/03/22 @ 11:51 by Arlette Vergara RN) Hx of appendectomy History of back surgery History of surgery Social History Patient Tobacco Use Status: Never used Tobacco Review of Systems Const All systems reviewed & are unremarkable except as noted in HPI and below ENT Reports Normal hearing present Neuro Reports Normal hearing present, Denies Abnormal speech present and Denies Sensory deficit (Neuro) Physical Exam Vital Signs: Last Vital Signs Pulse 85 01/30/25 13:52 BP 124/74 01/30/25 13:52 Pulse Ox 97 01/30/25 13:52 Oxygen Delivery Method Room Air 01/30/25 13:52 BMI result Body Mass Index 39.8 Const General: cooperative, healthy appearing, comfortable and well developed; No no acute distress Nutritional Appearance: obese morbidly obese and overweight Orientation/consciousness: patient oriented x3 Limitations: no limitations Eyes General: appearance normal, both eyes and all related structures Pupils: Equal, round and reactive pupils present EOM: EOMs intact bilaterally Neck Other: Limited range of motion of the cervical spine. Unable to extend had backwards due to severe pain. Axial compression does not aggravate the pain. However ax ial alleviation make his pain much better. Tenderness on palpation mostly on paraspinal as well as central spinal regions at the projection of the C4-C5 C6 and C7 spinous processes. Neck: No full ROM Chest Chest palpation & inspection: normal inspection of the chest Resp Effort & Inspection: normal respiratory effort, able to speak in complete sentences, normal respiratory pattern, no audible wheezes and no cough Cardio Jugular venous distension: no JVD GI Inspection: Yes normal to inspection Back/Spine/Pelvis Other: On the physical examination he has pump in the left abdomen. He also has multiple scars from previous surgeries: He has Pfannenstiel incision in the lower abdomen for the anterior fusion and multiple midline and paramedian scars in projection of L5 and S1 vertebra as on the back. He denies weakness in bilateral lower extremities he denies incontinence with urine and/or stool he denies Valsalva maneuver positive. SLR is positive on the right and equivocal on the left. Neuro General: patient oriented x3 Cranial nerves: Yes Equal, round and reactive pupils present and Yes Normal hearing present Cognition (Neuro): normal cognition Speech: No Abnormal speech present Gait exam (Neuro): Normal gait present Motor exam (neuro): 5/5 motor strength present throughout Sensory Exam: No Sensory deficit (Neuro) Psych Appearance: grossly normal Mental Status: mental status grossly normal Speech and movement: Normal speech and movement present Affect: normal affect Attitude: cooperative Thought process: Normal thought process present Thought content: Normal thought content present Insight: Good insight present (Psych) Judgement: Good judgement present (Psych) Assessment & Plan Assessment & Plan (1) Radiculopathy of cervical region: Code(s): M54.12 - Radiculopathy, cervical region Category: Medical (2) Degeneration, intervertebral disc, cervical: Code(s): M50.30 - Other cervical disc degeneration, unspecified cervical region Category: Medical (3) Spondylosis of cervical joint without myelopathy: Code(s): M47.812 - Spondylosis without myelopathy or radiculopathy, cervical region Category: Medical (4) Implantable intrathecal infusion pump present: Comment: last refill 07/07/22 Code(s): Z96.89 - Presence of other specified functional implants Category: Medical (5) Chronic pain syndrome: Code(s): G89.4 - Chronic pain syndrome Category: Medical (6) Postlaminectomy syndrome: Code(s): M96.1 - Postlaminectomy syndrome, not elsewhere classified Category: Medical (7) correction (current) use of opiate analgesic: Code(s): Z79.891 - correction (current) use of opiate analgesic Category: Medical Plan: He is doing OK with his pain pump althought complains on more severe pain - he relates it to severe weather in [place], [place] where he is currently lives and works. .His insurance is [employer] and the it pace for his pump refills with no regard of the location. He can not find anyone who take care of his pump refills back in [place] so he is driving 5 hours up and down to refill his device. He will be refilled on 04/26/2025. Plan THE PATIENT CAME TODAY IN the office FOR THE CHANGE OF THE MEDICATION IN his PAIN PUMP.? ?The pump was interrogated and the residual amount of fluid was found to be?2.2 mL. HE WAS POSITIONED supine on the bed AND THE AREA OF THE INTRATHECAL PUMP WAS PREPPED WITH CHLORAPREP. The fenestrated drape was sterilely applied over the area of the pump. Sterile gloves were worn and of the aspiration system was assembled containing 2 in 22 gauge noncoring needle, the needle was connected to extension tubing which was connected to the 20 cc sterile syringe. The pain pump was palpated under the skin in the patient's left abdominal area. The needle was inserted through the skin and the central plug of the pain pump and fluid was aspirated. The clear fluid was going into the syringe the total amount of the fluid was 5.9 mL .. After that a new batch? of medication was obtained which was containing dilaudid in concentration 4 mg/ml and bupivacaine 40 mg per ml. The admixture was made in two 20 cc syringes prepared by [facility] compounding pharmacy. The syringe was connected to the bacterial filter, and then connected to the extension tubing. After that the medication in the syringe was slowly instilled into the pump with aspirations at 35, 25, 15 and 5 cc villalba and good returns of the medication back to the syringe without any changes in collar indicating presence of blood or interstitial fluid.. after that the needle was removed and sterile dressing was applied in the for of the band-aid.. Coding Level of Care Code Est Pt Level 3 (49326) Procedure Only Diagnoses Radiculopathy of cervical region M54.12 Degeneration, intervertebral disc, cervical M50.30 Spondylosis of cervical joint without myelopathy M47.812 Implantable intrathecal infusion pump present Z96.89 Chronic pain syndrome G89.4 Postlaminectomy syndrome M96.1 correction (current) use of opiate analgesic Z79.891
[2025-01-30 13:52] VITALS: BP 124/74; PULSE 85; O2SAT 97; BMI 39.8
--- OUTSIDE RECORDS SUMMARY | 2025-01-30 15:56 | XMS_ITS | Patient Health Record ---
Author Organization [facility] Address [address] [facility] [address] [place] [address] Care Team Providers Care Railroad Car Checker Name Role Phone Dale Baptiste Primary Care Provider Dale Baptiste MD Unavailable Unavailable ALLERGIES Allergen (clinical drug ingredient) Drug/Non Drug Allergy documented on EMR Reaction Allergy Type Onset Date Status canagliflozin Invokana Unknown Drug Allergy Act jayleen sitagliptin Januvia Unknown Drug Allergy Activ e penicillin Unknown Drug Allergy Active RESULTS Component Value Reference Range Notes *Hepatic Function Panel (6) Reviewed date:04/12/2024 04:41:17 PM Interpretation:Normal Performing Lab:[facility], [employer] [facility], [place], Phone - [phone], Director - MDJodry Notes/Report: Albumin 4.5 3.8-4.9 g/dL Bilirubin, Total 0.4 0.0-1.2 mg/dL Bilirubin, Direct 0.14 0.00-0.40 mg/dL Alkaline Phosphatase 129 44-121 IU/L AST (SGOT) 28 0-40 IU/L ALT (SGPT) 32 0-44 IU/L *Lipid Panel Reviewed date:04/12/2024 04:40:10 PM Interpretation:Normal Performing Lab:[facility], [address] [place], [place], Phone - [phone], Director - MDJodry Notes/Report: Cholesterol, Total 173 100-199 mg/dL Triglycerides 115 0-149 mg/dL HDL Cholesterol 45 >39 mg/dL VLDL Cholesterol Isrrael 21 5-40 mg/dL LDL Chol Calc ([facility]) 107 0-99 mg/dL Comment: *PSA Total+ Free Reviewed date:04/12/2024 04:40:20 PM Interpretation:Normal Performing Lab:[facility], [address], [place], Phone - [phone], Director - Vera Notes/Report: Prostate Specific Ag <0.1 0.0-4.0 ng/mL [place] ECLIA methodology. . According to the [place] [employer], Serum PSA should decrease and remain at undetectable levels after radical prostatectomy. The AUA defines biochemical recurrence as an initial PSA value 0.2 ng/mL or greater followed by a subsequent confirmatory PSA value 0.2 ng/mL or greater. Values obtained with different assay methods or kits cannot be used interchangeably. Results cannot be interpreted as absolute evidence of the presence or absence of malignant disease. PSA, Free 0.03 N/A ng/mL [place] ECLIA met hodology. % Free PSA >30.0 The table below lists the probability of prostate cancer for men with non-suspicious VAN results and total PSA between 4 and 10 ng/mL, by patient age (Rosario et al, CHARLEEN 1998, 279:1542). % Free PSA 50-64 yr 65-75 yr 0.00-10.00% 56% 55% 10.01-15.00% 24% 35% 15.01-20.00% 17% 23% 20.01-25.00% 10% 20% >25.00% 5% 9% Please note: Rosario et al did not make specific recommendations regarding the use of percent free PSA for any other population of men. PDF . DIGITAL DIAGNOSTIC BILAT W C AD Reviewed date:05/04/2024 08:38:55 AM Interpretation:Normal Performing Lab: Notes/Report: See Below For Report 1.DIAGNOSTIC MAMMOGRAPHY WITH CAD AND TOMOSYNTHESIS, Bilateral breast. US BREAST UNILATERAL LIMITED Reviewed date:05/04/2024 08:37:19 AM Interpretation:Normal Performing Lab: Notes/Report: See Below For Report 1.DIAGNOSTIC MAMMOGRAPHY WITH CAD AND TOMOSYNTHESIS, Bilateral breast. REASON FOR REFERRAL No Information MEDICATIONS Medication SIG (Take, Route, Fr equency, Duration) Notes Start Date End Date Status Insulin Syringe 0.3cc 30g x 1/2 , 100 use to inject humalog insulin 3 times a day for 90 days Active Pen Needle 31g 6mm, 100 use to inject ba saglar insulin once a day for 90 days Active furosemide 20 mg 1 tab(s) orally once a day for 30 days Active sertraline 100 mg 2 tabs orally once a day for 30 days Active omeprazole 20 mg 1 cap(s) orally once a day for 90 days Active Lantus Solostar Pen Active Ozempic 2 mg/1.5 mL (0.25 mg or 0.5 mg dose) 0.5mg subcutaneously once a week Active HumaLOG 100 units/mL as per sliding scal e subcutaneously 3 times a day with meals Active traZODone 150 mg 1 tab(s) orally once a day at bedtime for 90 days Active atenolol 50 mg 1 tab(s) orally once a day for 30 day(s) Active SOCIAL HISTORY Tobacco Use: Social History Observation Description Date Smoking Status WARNING: Information temporarily unavailable Sex Assigned At : Social History Observation Description Sex Assigned At Unknown Smoking Status / Tobacco Question Answer Notes Are you a: vapes daily for several years PROBLEMS Problem Type ICD Code Onset Dates Problem Status W/U Status Risk SNOMED Code Notes Problem Type 2 diabetes mellitus with diabetic polyneuropathy (E11.42) Active confirmed 61875570 Problem 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) Active confirmed 279409647 Problem Moderate episode of recurrent major depressive disorder (F33.1) Active confirmed 045018096 Problem Other chronic postprocedural pain (G89.28) Active confirmed 581538318 Problem Tobacco use disorder, continuous (F17.209) Active confirmed 108895540 Problem Sleep disorder (G47.9) Active confirmed 30829024 Problem Obstructive sleep apnea (G47.33) Active confirmed 40847341 Problem GERD without esophagitis (K21.9) Active confirmed 276159129 VITAL SIGNS Blood pressure diastolic 76 mm Hg 04/08/2024 BRONSON O2:98 Height 69 in 04/08/2024 BRONSON O2:98 Blood pressure systolic 118 mm Hg 04/08/2024 BRONSON O2:98 Weight 258 lbs 04/08/2024 BRONSON O2:98 BMI 38.10 kg/m2 04/08/2024 BRONSON O2:98 Encounters Encounter Location Date Provider Diagnosis [facility] [address] [place] [address] [address] [place], [place] [phone] 04/08/2024 Dale Baptiste Encounter for genera l adult medical examination with abnormal findings Z00.01 ; Mass of axillary tail of left breast N63.32 ; Type 2 diabetes mellitus with diabetic polyneuropathy E11.42 ; buttermilk drier operator (current) use of insulin Z79.4 ; Moderate episode of recurrent major depressive disorder F33.1 ; Other chronic postprocedural pain G89.28 ; Tobacco use disorder, continuous F17.209 ; Lower leg edema R60.0 ; Sleep disorder G47.9 ; Obstructive sleep apnea G47.33 ; GERD without esophagitis K21.9 ; Colon cancer screening Z12.11 and Prostate cancer screening Z12.5 [facility] [address] [place] [phone] 09/21/2024 Dale Baptiste [facility] [address] [place] [phone] 11/01/2024 Dale Baptiste [facility] [address] [place] [phone] 04/12/2024 Dale Baptiste [facility] [address] [place] [phone] 05/04/2024 Dale [facility] [address] [place] [phone] 05/04/2024 Dale Baptiste ASSESSMENTS Encounter Date Diagnosis Assessment Notes Treatment Notes Treatment Clinical Notes 04/08/2024 Encounter for general adult medical examination with abnormal findings (ICD-10 - Z00.01) states tdap was done in 2016. Counseled on Shingrix. He has never had any colon cancer screening, he is interested in a colonoscopy. discussed diet and weight loss. 04/08/2024 Mass of axillary tail of left breast (ICD-10 - N63.32) He agrees to imaging. 04/08/2024 Type 2 diabetes mellitus with diabetic polyneuropathy (ICD-10 - E11.42) He says that he just started seeing endocrinology, , again over the past 2 months when he got back on health insurance. He is reports that he just recently had lab work done with her. 04/08/2024 buttermilk drier operator (current) use of insulin (ICD-10 - Z79.4) 04/08/2024 Moderate episode of recurrent major depressive disorder (ICD-10 - F33.1) He will continue sertraline as well. 04/08/2024 Other chronic postprocedural pain (ICD-10 - G89.28) he will cont with his pain specialist in [place]. 04/08/2024 Tobacco use disorder, continuous (ICD-10 - F17.209) recommended vaping cessation. 04/08/2024 Lower leg edema (ICD-10 - R60.0) He does report intermittent lower leg and ankle edema. In the past he is taking furosemide as needed for this. He states he usually he only needs to take it a few times a month. 04/08/2024 Sleep disorder (ICD-10 - G47.9) 04/08/2024 Obstructive sleep apnea (ICD-10 - G47.33) 04/08/2024 GERD without esophagitis (ICD-10 - K21.9) He would like to continue on PPI 04/08/2024 Colon cancer screening (ICD-10 - Z12.11) Who preferred to do a colonoscopy, but not to do it closer to home which is an [place] away in [place]. I asked him to go through his insurance to find a local gastroenterology provider there. 04/08/2024 Prostate cancer screening (ICD-10 - Z12.5) PLAN OF TREATMENT Pending Test Test Name Order Date X ray : Knee, left 03/14/2021 Mammogram 3D left breast with add views and ultrasound if needed 04/08/2024 Insurance Providers Payer Name Payer Address Payer Phone Subscriber Number Group Number Insured Name Patient Relationship to Insured Coverage Start Date Coverage End Date [facility] [address] [place] [phone] [id number] Cooper Butts Self - patient is the insured MEDICAL (GENERAL) HISTORY Medical History History ICD Code chronic low back pain depression type 2 DM symptomatic PVCs lower extremity swelling GERD asthma FERNANDO- using CPAP right shoulder arthritis Surgical History Surgery Date(Month/Year) implanted medtronic pain pump 2022 implanted med tronic pain pump (dilaudid and bupivacaine) 2017 kidney stone appendectomy L5- S1 fusion 2013 L5- S1 fusion 2011 L5-S1 fusion 2010 right shoulder labrum 2007 right shoulder labrum 2006 tonsillectomy 1990
--- OUTSIDE RECORDS SUMMARY | 2025-01-30 15:56 | XMS_ITS ---
Author Organization [facility] Address [address] [place] [address] [address] [place] [address] Care Team Providers Care Shopper Marketing Manager Name Role Phone Dale Baptiste Primary Care Provider Dale Baptiste MD Unavailable Unavailable REASON FOR VISIT Insurance info *LMOM* Encounters Encounter Location Date Provider Diagnosis [facility] [address] [place] [address] [address] [place], [place] [phone] 09/21/2024 Dale Baptiste PLAN OF TREATMENT No Information
--- OUTSIDE RECORDS SUMMARY | 2025-01-30 15:56 | XMS_ITS ---
Author Organization [facility] Address [address] [facility] [address] [place] [address] Care Team Providers Care Materials Supervisor Name Role Phone Dale Baptiste Primary Care Provider Dale Baptiste MD Unavailable Unavailable REASON FOR VISIT Sertraline in que *LMOM* MEDICATIONS Medication SIG (Take, Route, Fr equency, Duration) Notes Start Date End Date Status sertraline 100 mg 2 tabs orally once a day for 30 days Active furosemide 20 mg 1 tab(s) orally once a day for 30 days Active Encounters Encounter Location Date Provider Diagnosis [facility] [address] [place] [address] [address] [place], [place] [phone] 11/01/2024 Dale Baptiste PLAN OF TREATMENT Medication Medication Name Sig Start Date Stop Date Notes sertraline 100 mg 2 tabs orally once a day for 30 days furosemide 20 mg 1 tab(s) orally once a day for 30 days
--- OUTSIDE RECORDS SUMMARY | 2025-01-30 15:56 | XMS_ITS | Encounter Summary ---
Author Organization [facility] Address [address] [place] [address] Care Team Providers Care Lubricating Machine Tender Name Role Phone Dale Lerma DO Primary Care Provider [phone] Reason for Visit * Reason Comments Appointment Encounter Details Date Type Department Care Team (Late st Contact Info) Description 03/14/2024 Telephone [facility] [address] [place] [phone] Dale Lerma DO [address] [address] Appointment Social History Tobacco Use Types Packs/Day Years Used Date Smoking Tobacco: Never Assessed Sex and Gender Information Value Date Recorded Sex Assigned at Male 01/21/2023 2:07 PM EST Gender Identity Male 01/21/2023 2:07 PM EST Sexual Orientation Choose not to disclose 2023 7:42 PM EDT Sexual Orientation Heterosexual (straight) 03/25 7:42 PM EDT documented as of this encounter Plan of Treatment Not on file documented as of this encounter Visit Diagnoses Not on filedocumented in this encounter Care Teams Lubricating Machine Tender Relationship Specialty Start Date End Date Dale Lerma DO [address] [address] PCP - General Family Medicine 11/12/23 documented as of this encounter
--- OUTSIDE RECORDS SUMMARY | 2025-01-30 15:56 | XMS_ITS | Clinical Summary ---
Author Organization [facility] Address [address] [place] [address] Care Team Providers Care Ballistics Professor Name Role Phone Unavailable Primary Care Provider Unavailabl e Immunizations Name Administration Dates Next Due COVID-19, mRNA (Pfizer Pre F all 2022) Monovalent, 30 mcg/0.3 ml 08/26/2021 Covid-19, mRNA (Pfizer Comir isacc) Seasonal, 30 mcg/0.3 mL (12+) 09/19/2023 Influenza (SEASONAL) - 08/30/2022 Influenza,injectable,quad,Prsrv Fr 09/19/2023, Social History Tobacco Use Types Packs/Day Years Used Date Smoking Tobacco: Never Assessed Intimate Partner Violence Answer Date R ecorded Fear of Current or Ex-Partner Not on file Emotionally Abused Not on file 07/23/2023 Physically Abused Not on file 07/23/2023 Sexually Abused Not on file 07/23/2023 Feel Safe at Home Not on file 07/23/2023 Sex and Gender Information Value Date Recorded Sex Assigned at Not on file Legal Sex Male 1:04 PM EDT Gender Identity Not on file Sexual Orientation Not on file Plan of Treatment Health Maintenance Due Date Last Done Comments Hepatitis C Screening 1972 DTaP/Tdap/Td (1 - Tdap) 1990 Hep B (1 of 3 - 19+ 3-dose series) 1991 Colon Cancer Screening 2017 Pneumococcal 50+ years (1 of 1 - PCV) 2022 Zoster (Shingrix) (1 of 2) 2022 COVID-19 Vaccine (3 - 2023-2 5 season) 2024 09/19/2023, 08/26/2021 Influenza (#1) 2024 09/19/2023, 08/30/2022, 10/17/2021 HPV Vaccine Aged Out No longer eligi ble based on patient's age to complete this topic Hep A Aged Out No longer eligi ble based on patient's age to complete this topic Hib Aged Out No longer eligi ble based on patient's age to complete this topic Meningococcal ACWY Aged Out No longer eligible based on patient's age to complete this topic Insurance [employer]
--- OUTSIDE RECORDS SUMMARY | 2025-01-30 15:56 | XMS_ITS | Referral Summary ---
Author Organization [facility] Address [address] [place] [address] Care Team Providers Care Plug Machine Operator Name Role Phone Dale Baptiste DO Primary Care Provide r Allergies Active Allergy Reactions Criticality Noted Date Comments Canagliflozin Unknown 03/15/2021 Penicillin Unknown 03/15/2021 Penicillins Anaphylaxis High 06/10/2022 Sitagliptin Unknown 03/15/2021 Medications atenoloL (TENORMIN) 50 mg tablet Take 50 mg by mouth once a day. 1 Active Freestyle Lite test strips 1 Active FreeStyle Lite Meter meter 1 Active dulaglutide (TRULICITY) 1.5 mg/0.5 mL injection dose Inject 1.5 mg under the skin once a week. On Wednesdays Active furosemide (LASIX) 20 mg tablet Take 20 mg by mouth once a day. 1 Active HumaLOG U-100 Insulin 100 unit/mL injection Inject under the skin 3 times a day before meals. ISS 1 Active omeprazole (PriLOSEC) 20 mg capsule Take 20 mg by mouth once a day. 1 Active sertraline (ZOLOFT) 100 mg tablet Take 200 mg by mouth once a day. 1 Active insulin glargine (BASAGLAR KWIKPEN) 100 unit/mL insulin pen Inject 170 Units under the skin daily with dinner. Active Dexcom G6 Sensor device USE DIRECTED. 2 Active Dexcom G6 Transmitter device USE DIRECTED. 2 Active BD Ultra-Fine Short Pen Needle 31 gauge x 5/16 needle USE DIRECTED FOR INSULIN INJECTION FOUR TIMES PER DAY 2 Active HYDROmorphone, PF, (Dilaudid, PF,) 0.2 mg/mL syringe Inject as directed. Medtronic pain pump with dilaudud and bupivicaine infusing Active tamsulosin (Flomax) 0.4 mg capsule Take 1 capsule (0.4 mg total) by mouth daily as needed (pain from stent). 30 capsule 2 Active phenazopyridine (Pyridium) 100 mg tablet Take 1 tablet (100 mg total) by mouth 3 times a day as needed for bladder spasms. 9 tablet 2 Active Active Problems Problem Noted Date Diagnosed Date Moderate recurrent major depression 05/27/2022 Polyneuropathy due to type 2 diabetes mellitus ( [facility] 05/27/2022 Closed fracture of left distal fibula 10/25/2021 Anxiety 10/19/2021 Diabetes mellitus 10/19/2021 Social History Tobacco Use Types Packs/Day Years Used Date Smoking Tobacco: Never Smokeless Tobacco: Former Chew Alcohol Use Standard Drinks/Week Comments Not Currently 0 (1 standard drink = 0.6 oz pur e alcohol) Sex and Gender Information Value Date Recorded Sex Assigned at Not on file Legal Sex Male 8:04 AM EST Gender Identity Not on file Sexual Orientation Not on file Last Filed Vital Signs Vital Sign Reading Time Taken Comments Blood Pressure 136/87 06/18/2022 8:59 AM EDT Pulse 85 06/18/2022 8:59 AM EDT Temperature 36.4 ??C (97.5 ??F) 06/10/2022 6:39 PM ED T Respiratory Rate 16 06/10/2022 6:39 PM EDT Oxygen Saturation 99% 06/10/2022 6:39 PM EDT Inhaled Oxygen Concentration - - Weight 114.2 kg (251 lb 12.8 oz) 2021 11:54 AM EDT Height 175.3 cm (5' 9 ) 06/10/2022 11:5 4 AM EDT Body Mass Index 37.18 06/10/2022 11:54 AM EDT Plan of Treatment Not on file Medical Devices Implanted Type Area Gold Assayer Device Identifier Shelf Expiration Date Model / Serial / Lot Plate Tubular1/3 Stainless Steel 8 Hole 96mm Chamita - [id number] Implanted:Qty: 1 on 10/25/2021 by David Kelsey MD at [facility] Plate Left: Ankle [facility] 2179.1308 / / Screw Bone Non-Locking Stainless Steel [id number] - [id number] Implanted:Qty: 1 on 10/25/2021 by David Kelsey MD at [facility] Screw Left: Ankle [facility] 2179.3032 / / Screw Non-Locking Stainless Steel [id number] - [id number] Implanted:Qty: 4 on 10/25/2021 by David Kelsey MD at [facility] Screw Left: Ankle [facility] 2179.3016 / / Screw Bone Nonlocking Stainless Steel [id number] Chamita - [id number] Implanted:Qty: 1 on 10/25/2021 by David Kelsey MD at [facility] Screw Left: Ankle [facility] 2179.3018 / / Screw Non-Locking Stainless Steel [id number] - [id number] Implanted:Qty: 1 on 10/25/2021 by David Kelsey MD at [facility] Screw Left: Ankle [facility] 2179.3022 / / Stent Ureteral Firm Hydroplus Coating 6fr 26cm Percuflex Plus - [id number] Implanted:Qty: 1 on 06/10/2022 by Isaac Roe MD at [facility] Stent Right: Ureter [employer] 03/09/2025 [id number] / / [id number] Procedures * Due to [place] [employer] law, this organization might not be sharing negative HIV tests. Procedure Name Priority Date/Time Associated Diagnosis Comments BASIC METABOLIC PANEL Routine 06/05/2022 8:54 AM EDT Pre-op evaluation Nephrolithiasis from Last 3 Months or Most Recently Relevant to Health Maintenance Results * Due to [place] [employer] law, this organization might not be sharing negative HIV tests. * (ABNORMAL) Basic Metabolic Panel (06/05/2022 8:54 AM EDT) NA 134(L) 135 - 145 mmol/L 06/05/2022 9:35 AM [facility] K 3.7 3.5 - 5.3 mmol/L 06/05/2022 9:35 AM [facility] Cl 100 97 - 110 mmol/L 06/05/2022 9:35 AM [facility] CO2 27 24 - 32 mmol/L 06/05/2022 9:35 AM [facility] BUN 12 7 - 23 mg/dL 06/05/2022 9:35 AM [facility] Creatinine 0.72 0.60 - 1.30 mg/dL 06/05/2022 9:35 AM [facility] Glucose 178(H) 70 - 99 mg/dL 06/05/2022 9:35 AM [facility] Calcium 9.7 8.7 - 10.7 mg/dL 06/05/2022 9:35 AM [facility] Anion Gap 7 5 - 15 06/05/2022 9:35 AM [facility] eGFR >90 >=90 mL/min/1. 73m2 06/05/2022 9:35 AM [facility] Comment: Estimated Glomerular Filtration Rate (GFR) calculated using the CKD-EPI refit equation. The different stages of CKD form a continuum. The stages of CKD are classified as follows : Stage 1: Kidney damage with normal or increased GFR (>90 mL/min/1.73 m2) Stage 2: Mild reduction in GFR (60-89 mL/min/1.73 m2) Stage 3a: Moderate reduction in GFR (45-59 mL/min/1.73 m2) Stage 3b: Moderate reduction in GFR (30-44 mL/min/1.73 m2) Stage 4: Severe reduction in GFR (15-29 mL/min/1.73 m2) Stage 5: Kidney failure (GFR < 15 mL/min/1.73 m2 or dialysis) Blood Structure of peripheral vein / Unknown Venipuncture / Unknown 06/05/2022 8:54 AM EDT 06/05/2022 9:17 AM EDT Caty Rice FLUX MIXER LAB BLOOD ORDERABLES Final Result [facility] [address] [place] [address], from Last 3 Months or Most Recently Relevant to Health Maintenance Insurance [facility] HMO/POS Advance Directives * Full Code (Latest Code Status on File) Date Activated Date Inactivated Comments 06/10/2022 12:00 PM 06/10/2022 9:33 PM * Full Code Date Activated Date Inactivated Comments 10/25/2021 6:46 AM 10/25/2021 2:17 PM Care Teams Plug Machine Operator Relationship Specialty Start Date End Date Dale Baptiste DO [address] [place] [id number] PCP - General Family Medicine 10/21/21
--- OUTSIDE RECORDS SUMMARY | 2025-01-30 15:56 | XMS_ITS | Clinical Summary ---
Author Organization [facility] Address [address] [place] [address] Care Team Providers Care Sap Data Architect Name Role Phone Dale Baptiste DO Primary [...] due to type 2 diabetes mellitus ( [facility]) 05/27/2022 Closed fracture of left distal fibula 10/25/2021 Anxiety 10/19/2021 Diabetes mellitus 10/19/2021 Family History Medical History Relation Name Comments Stroke Mother Relation Name Status Comments Father Alive No contact Mother (Age 59) Social History Tobacco Use Types Packs/Day Years [...] 6:39 PM EDT Oxygen Saturation 99% 06/10/2022 6: 39 PM EDT Inhaled Oxygen Concentration - - Weight 114.2 kg (251 lb 12.8 oz) 2021 11:54 AM EDT Height 175.3 cm (5' 9 ) 06/10/2022 11:5 4 AM EDT Body Mass Index 37.18 06/10/2022 11:54 AM EDT Plan of Treatment Health Maintenance Due Date Last Done Comments Cologuard 1972 Colon Cancer Screening 1972 Colonoscopy 1972 FOBT / Fit Test 1972 HIV Screening 1972 Hemoglobin A1C 1972 Hepatitis C Screening 1972 Sigmoidoscopy 1972 Ophthalmology Exam 1982 Urine Microalbumin 1982 Hepatitis B Vaccines (1 of 3 - 19+ 3-dose series) 1991 Pneumococcal Vaccine: 50+ Ye ars (1 of 2 - PCV) 1991 DTaP,Tdap,and Td Vaccines (1 - Tdap) 1994 Zoster Vaccines (1 of 2) 2022 Basic Metabolic Panel 06/05/2023 06/05/2022, 022 COVID-19 Vaccine (2 - season) 2024 Influenza Vaccine (#1) 2024 09/12/2023, 2020 Alcohol/Substance Use Screening 11/30/2024 Depression Evaluation 11/30/2024 Social Drivers of Health Annual Screening 11/30/2024 RSV Vaccine (60+ years old a nd patients) (1 - 1-dose 75+ series) 2047 Medical Devices Implanted Type Area Roll Mill Operator Device Identifier Shelf Expiration Date Model / Serial / Lot Plate Tubular1/3 Stainless Steel 8 Hole 96mm [place] - [id number] Implanted:Qty: 1 on 10/25/2021 by David Kelsey MD at [facility] Plate Left: Ankle [employer] 2179.1308 / / Screw Bone Non-Locking Stainless Steel [id number] - [id number] Implanted:Qty: 1 on 10/25/2021 by David Kelsey MD at [facility] Screw Left: Ankle [employer] 2179.3032 / / Screw Non-Locking Stainless Steel [id number] - [id number] Implanted:Qty: 4 on 10/25/2021 by David Kelsey MD at [facility] Screw Left: Ankle [employer] 2179.3016 / / Screw Bone Nonlocking Stainless Steel [id number] [place]ar - [id number] Implanted:Qty: 1 on 10/25/2021 by David Kelsey MD at [facility] Screw Left: Ankle [facility] 2179.3018 / / Screw Non-Locking Stainless Steel [id number] - [id number] Implanted:Qty: 1 on 10/25/2021 by David Kelsey MD at [facility] Screw Left: Ankle [facility] 2179.3022 / / Stent Ureteral Firm Hydroplus Coating 6fr 26cm Percuflex Plus - [id number] Implanted:Qty: 1 on 06/10/2022 by Isaac Roe MD at [facility] Stent Right: Ureter [employer] 03/09/2025 [id number] / / [id number] Procedures * Due to [facility] law, this organization might not be sharing negative HIV tests. Procedure Name Priority Date/Time Associated Diagnosis Comments BASIC METABOLIC PANEL Routine 06/05/2022 8:54 AM EDT Pre-op evaluation Nephrolithiasis from Last 3 Months or Most Recently Relevant to Health Maintenance Results * Due to [facility] law, this organization might not be sharing negative HIV tests. * (ABNORMAL) Basic Metabolic Panel (06/05/2022 8:54 AM EDT) NA 134(L) 135 - 145 mmol/L 06/05/2022 9:35 AM EDT [facility] K 3.7 3.5 - 5.3 mmol/L 06/05/2022 9:35 AM EDT [facility] Cl 100 97 - 110 mmol/L 06/05/2022 9:35 AM EDT [facility] CO2 27 24 - 32 mmol/L 06/05/2022 9:35 AM EDT [facility] BUN 12 7 - 23 mg/dL 06/05/2022 9:35 AM EDT [facility] Creatinine 0.72 0.60 - 1.30 mg/dL 06/05/2022 9:35 AM EDT [facility] Glucose 178(H) 70 - 99 mg/dL 06/05/2022 9:35 AM EDT [facility] Calcium 9.7 8.7 - 10.7 mg/dL 06/05/2022 9:35 AM EDT [facility] Anion Gap 7 5 - 15 06/05/2022 9:35 AM EDT [facility] eGFR >90 >=90 mL/min/1. 73m2 06/05/2022 9:35 AM EDT [facility] Comment: Estimated Glomerular Filtration [...] EDT 06/05/2022 9:17 AM EDT Caty Rice NP LAB BLOOD ORDERABLES Final Result [facility] [address] [place] [address], from Last 3 Months or Most Recently Relevant to Health Maintenance Insurance [facility] HMO/POS Advance Directives * Full Code (Latest Code Status on File) Date Activated Date Inactivated Comments 06/10/2022 12:00 PM 06/10/2022 9:33 PM * Full Code Date Activated Date Inactivated Comments 10/25/2021 6:46 AM 10/25/2021 2:17 PM Care Teams Sap Data Architect Relationship Specialty Start Date End Date Dale Baptiste DO [address] [place] [id number] PCP - General Family Medicine 10/21/21
--- OUTSIDE RECORDS SUMMARY | 2025-01-30 15:56 | XMS_ITS ---
Author Organization [facility] Address [address] [facility] [address] [place] [address] Care Team Providers Care Busser Name Role Phone Dale Baptiste Primary Care Provider [phone] Dale Baptiste MD Unavailable Unavailable REASON FOR VISIT RE:Test results Encounters Encounter Location Date Provider Diagnosis [facility] [address] [facility] [address] [place], [place] [id number] 05/04/2024 Dale Baptiste PLAN OF TREATMENT No Information
--- OUTSIDE RECORDS SUMMARY | 2025-01-30 15:56 | XMS_ITS | Clinical Summary ---
Author Organization Formerly [facility] Address [address] [place] [address] Care Team Providers Care Control Room Technician Name Role Phone Dale Lerma DO Primary Care Provider [phone] Allergies Active Allergy Reactions Criticality Noted Date Comments Sitagliptin Anaphylaxis High 03/25/2024 Penicillins Anaphylaxis High 03/25/2024 Medications Medication Sig Dispensed Refills Start Date End Date Status atenolol (TENORMIN) 50 MG tablet Take 1 tablet (50 mg total) by mouth daily. Active insulin glargine (Lantus SoloStar) 100 units/mL prefilled pen injection Inject 75 Units under the skin 2 (two) times a day in the morning and the early afternoon. 03/25/2024 Active insulin lispro (HumaLOG) 100 units/mL injection INJECT 1 UNIT SUBCUTANEOUSLY FOR EVERY 5 GRAMS OF CARBS, SCALE WITH MEALS DIRECTED BETWEEN 40-70UNITS/DAY 03/03/2024 Active OMEprazole (PriLOSEC) 20 MG capsule Take 1 capsule (20 mg total) by mouth daily. 07/13/2023 Active Ozempic, 0.25 or 0.5 MG/DOSE, 2 MG/3ML prefilled pen injection INJECT 0.5 MG SUBCUTANEOUSLY QWEEK-Thursday04/01/2024 Active sertraline (ZOLOFT) 100 MG tablet Take 2 tablets (200 mg total) by mouth daily. Active traZODone (DESYREL) 150 MG tablet TAKE 1 TABLET BY MOUTH EVERY DAY AT BEDTIME FOR 90 DAYS Active furosemide (LASIX) 20 MG tablet Take 1 tablet (20 mg total) by mouth daily. Active UNABLE TO FIND Inject 1 Application as directed daily at the same time. Pain pump hydromorphone 1.2005 mg/ bupivicane 12.005mg Pt can have up to 3 boluses daily each bolus has hydromorphone .2201 mg and bupivicaine 2.201 mg Active aspirin enteric coated (ECOTRIN LOW STRENGTH) 81 MG EC tabletIndications :Arthritis of right shoulder region Take 1 tablet (81 mg total) by mouth every 12 (twelve) hours around the clock. 05/27/2024 Active celeCOXIB (CeleBREX) 200 MG capsuleIndication s:Arthritis of right shoulder region [The details of the medication are not available because there are pending changes by a home health clinician.] 05/27/2024 Active Additional Information Patient taking differently:200 mg Oral 2 times daily,TAKING QD-AM, Reported on 05/28/2024 gabapentin (NEURONTIN) 100 MG capsuleIndication s:Arthritis of right shoulder region Take 2 capsules (200 mg total) by mouth 2 (two) times a day. 05/27/2024 Active oxyCODONE (ROXICODONE) 5 MG immediate release tabletIndications :Arthritis of right shoulder region Take 1 tablet (5 mg total) by mouth every 4 (four) hours as needed for severe pain. Max Daily Amount: 30 mg 05/27/2024 Active senna-docusate (SENNA-S) 8.6-50 MGIndications:Art hritis of right shoulder region Take 2 tablets by mouth nightly. 60 tablet 05/27/2024 Active acetaminophen (TYLENOL) 325 MG tabletIndications :Arthritis of right shoulder region Take 3 tablets (975 mg total) by mouth every 8 (eight) hours around the clock. 05/27/2024 Active ibuprofen (MOTRIN) 200 MG tablet Take 800 mg by mouth 3 times daily (every 8 hours) as needed for moderate pain. Active dextrose 1 g Chew Tab Chew 2 g daily as needed for low blood sugar. Active diphenhydrAMINE (BENADRYL) 25 MG tablet Take 25 mg by mouth as needed for allergies or itching. Per bottle instructions Active Active Problems Problem Noted Date Diagnosed Date Acute blood loss anemia 05/27/2024 S/P shoulder replacement, right 05/26/2024 Pain management 05/26/2024 Preoperative examination 05/05/2024 Assessment & Plan (05/05/2024 9:42 AM EDT): Patient will follow-up postoperatively for continued chronic disease management with their primary care and appropriate specialists. At elevated risk for: poor wound healing and infection, delayed post anesthesia arousal and/or prolonged intubation, DVT/PE and post operative GI bleed Arthritis of right shoulder region 05/05/2024 Assessment & Plan (05/05/2024 9:42 AM EDT): Seeking definitive management of right shoulder pain. Discussed the perioperative process, medication changes, and NPO status. FERNANDO (obstructive sleep apnea) 05/05/2024 Assessment & Plan (05/05/2024 9:44 AM EDT): Compliant with CPAP. Palpitations 05/05/2024 Assessment & Plan (05/05/2024 9:44 AM EDT): Has h/o PVCs which are controlled with atenolol. Chronic lower back pain 05/05/2024 Assessment & Plan (05/05/2024 9:46 AM EDT): Patient with pain pump to lumbar, L5/S1. See medication list for medications being infused. He has chronic lower back pain. Morbid obesity 05/05/2024 Assessment & Plan (05/05/2024 9:47 AM EDT): BMI 40.14 likely d/t sedentary lifestyle and/or poor diet. Bilateral lower extremity edema 05/05/2024 Assessment & Plan (05/05/2024 9:49 AM EDT): Maintained on furosemide with benefit. He elevates legs. Recommended compression stockings. He will follow up with PCP. Moderate recurrent major depression 05/27/2022 05/05/2024 Assessment & Plan (05/05/2024 9:44 AM EDT): Maintained on sertraline and trazodone. Continue. Mood and affect appropriate. Polyneuropathy due to type 2 diabetes mellitus 0 05/27/2022 05/05/2024 Assessment & Plan (05/05/2024 9:43 AM EDT): BLE neuropathy. Anxiety 10/19/2021 05/05/2024 Type 2 diabetes mellitus wit hout complication, without long-term current use of insulin 10/19/2021 05/05/2024 Assessment & Plan (05/05/2024 9:43 AM EDT): Maintained on Lantus, Humalog, and Ozempic. He just restarted his medications in February 2023, as he just got back his health insurance. A1C drawn today and pending. He is at increased risk of poor wound healing and infection. Family History Medical History Relation Name Comments Stroke Maternal Grandmother Sleep apnea Mother in her sle ep - ? CVA Relation Name Status Comments Maternal Grandmother Mother Social History Tobacco Use Types Packs/Day Years Used Date Smoking Tobacco: Never Smokeless Tobacco: Current Alcohol Use Standard Drinks/Week Comments Not Currently 0 (1 standard drink = 0.6 oz pur e alcohol) OASIS D0700: Social Isolation Answer Da te Recorded Frequency of experiencing loneliness or isolatio n Never 06/09/2024 OASIS A1250: Transportation Answer Date Recorded Lack of Transportation (Medical) No 06/09/2024 Lack of Transportation (Non-Medical) No 06/09/2024 Patient Unable or Declines to Respond No 06/09/2024 AUDIT-C Answer Date Recorded Q1: How often do you have a drink containing alcohol? Never 05/26/2024 Q2: How many drinks containi ng alcohol do you have on a typical day when you are drinking? Patient does not drink Q3: How often do you have si x or more drinks on one occasion? Never 05/26/2024 Sex and Gender Information Value Date Recorded Sex Assigned at Male 01/21/2023 2:07 PM EST Gender Identity Male 01/21/2023 2:07 PM EST Sexual Orientation Choose not to disclose 2023 7:42 PM EDT Sexual Orientation Heterosexual (straight) 03/25 7:42 PM EDT Last Filed Vital Signs Vital Sign Reading Time Taken Comments Blood Pressure 118/63 06/06/2024 2:40 PM EDT Pulse 72 06/06/2024 2:40 PM EDT Temperature 36.1 ??C (96.9 ??F) 06/06/2024 2:40 PM ED T Respiratory Rate 16 06/06/2024 1:06 PM EDT Oxygen Saturation 95% 06/06/2024 2:40 PM EDT Inhaled Oxygen Concentration - - Weight 122 kg (269 lb) 05/28/2024 10:00 AM EDT Height 175.3 cm (5' 9 ) 05/28/2024 10:00 AM EDT Body Mass Index 39.72 05/28/2024 10:00 AM EDT Plan of Treatment Health Maintenance Due Date Last Done Comments Hepatitis C Virus Screening 1972 Pneumococcal Vaccine: Pediat diya (0-5 Years) and At-Risk Patients (6 to 49 Years) (1 of 2 - PCV) 1978 Foot Exam 1982 Lipid Panel 1982 Ophthalmology Exam 1982 HIV Screening 1985 Microalbumin/Creatinine Rati o Urine 1990 DTaP/Tdap/Td Vaccines (1 - Tdap) 1991 Hepatitis B Vaccines (1 of 3 - 19+ 3-dose series) 1991 Pneumococcal Vaccines 50+ (1 of 2 - PCV) 1991 Colonoscopy 2017 Zoster (Shingles) Vaccine (1 of 2) 2022 Influenza Vaccine 06/30/2024 09/19/2023, , 08/30/2022, Additional history exists COVID-19 Vaccine (4 - 2023-2 5 season) 2024 09/19/2023, 09/13/2022, 08/26/2021 Hemoglobin A1C 11/22/2024 05/23/2024, 05/05/2024 Creatinine with GFR 05/05/2025 05/05/2024, 4 Medical Devices Implanted Type Area Monotyper Device Identifier Shelf Expiration Date Model / Serial / Lot Ar-9400-Sbk Implant Fixation Eclps Speedscap Sterl Lf Disp - [id number] Implanted:Qt y: 1 on 05/26/2024 by Az Schafer MD at [facility] [place] Right: Shoulder UNKNOWN 09/29/2028 AR-9400- SBK / / [id number] [place] Suture 4.75mm 2 Swivelock C Fibertak Tgtl 2 Load - [id number] Implanted:Qt y: 1 on 06/06/2024 by Az Schafer MD at [facility] Right: Shoulder [employer] 09/29/2024 AR-[id number] CT-2 / / [id number]- Cement Bone Smpx Speedset 20ml 40gm Fd Anbtc Sterl Lf Disp - [id number] Implanted:Qt y: 1 on 05/26/2024 by Az Schafer MD at [facility] [place] Right: Shoulder [employer] [id number] 08/29/2025 6192-1-0 01 / / [id number]-- Cement Bone Smpx Speedset 20ml 40gm Fd Anbtc Sterl Lf Disp - [id number] Implanted:Qt y: 1 on 05/26/2024 by Az Schafer MD at [facility] [place] Right: Shoulder [employer] [id number] 08/29/2025 6192-1-0 01 / / [id number]- Cement Bone Smpx Speedset 20ml 40gm Fd Anbtc Sterl Lf Disp - [id number] Implanted:Qt y: 1 on 05/26/2024 by Az Schafer MD at [facility] [place] Right: Shoulder [employer] [id number] 08/29/2025 6192-1-0 01 / / [id number]- Cement Bone Smpx Speedset 20ml 40gm Fd Anbtc Sterl Lf Disp - [id number] Implanted:Qt y: 1 on 05/26/2024 by Az Schafer MD at [facility] [place] Right: Shoulder [employer] [id number] 08/29/2025 6192-1-0 01 / / [id number] Ar-9106-03 [place] Vaultlock Large Glenoid Implant Implanted:Qt y: 1 on 05/26/2024 by Az Schafer MD at [facility] Joint Prosthesis Right: Shoulder UNKNOWN 07/30/2026 AR-9106- 03 / / [id number]-9349-18 Eclipse Humeral Head [id number] Implanted:Qt y: 1 on 05/26/2024 by Az Schafer MD at [facility] [employer]sthesis Right: Shoulder UNKNOWN 10/29/2027 AR-9349- 18 / / [id number] Eclipse Truunion Slotted Tps Cap 47mm Implanted:Qt y: 1 on 05/26/2024 by Az Schafer MD at [facility] Prosthesis Right: Shoulder UNKNOWN 09/29/2028 AR-9301- 47CPC / / [id number] Ar-9301-03 Eclipse Large Cage Screw Implanted:Qt y: 1 on 05/26/2024 by Az Schafer MD at [facility] [place] Right: Shoulder UNKNOWN 09/29/2025 AR-9301- 03 / / [id number] Procedures Procedure Name Priority Date/Time Associated Diagnosis Comments HEMOGLOBIN A1C Routine 05/23/2024 7:33 AM EDT BASIC METABOLIC PANEL Routine 05/05/2024 8:25 AM EDT Preoperative examination from Last 3 Months or Most Recently Relevant to Health Maintenance Results * (ABNORMAL) Hemoglobin A1C (05/23/2024 7:33 AM EDT) Hemoglobin A1C 7.5(H) <5.7 % of total Hgb [facility] Comment: For someone without known diabetes, a hemoglobin A1c value of 6.5% or greater indicates that they may have diabetes and this should be confirmed with a follow-up test. For someone with known diabetes, a value <7% indicates that their diabetes is well controlled and a value greater than or equal to 7% indicates suboptimal control. A1c targets should be individualized based on duration of diabetes, age, comorbid conditions, and other considerations. Currently, no consensus exists regarding use of hemoglobin A1c for diagnosis of diabetes for children. ? This test was performed on the Opal lucinda c503 platform. Effective 02/01/24, a change in test platforms from the Sepulveda Composition Roll Maker [employer] Cutter to the Opal lucinda c503 may have shifted HbA1c results compared to historical results. Based on laboratory validation testing conducted at [facility], the Opal platform relative to the Sepulveda platform had an average increase in HbA1c value of < or = 0.3%. This difference is within accepted variability established by the National Glycohemoglobin Standardization Program. Note that not all individuals will have had a shift in their results and direct comparisons between historical and current results for testing conducted on different platforms is not recommended. 05/23/2024 7:33 AM EDT 05/23/2024 7:33 AM EDT Narrative [facility] - 05/23/2024 5:37 PM EDT FASTING:YES FASTING: YES Ordered by External Provider. [id number], AZ SCHAFER, External Provider LAB BLOOD ORDERABLE S [facility] [address] [place] [id number] * (ABNORMAL) Basic Metabolic Panel (05/05/2024 8:25 AM EDT) [facility] Signature Glucose 172(H) 65 - 99 mg/dL 05/05/2024 9:02 AM EDT Comment:Fasting: <100 mg/dL, Non-Fasting: <200 mg/dL (ADA 2005) Blood Urea Nitrogen (BUN) 11 8 - 21 mg/dL 05/05/2024 9:02 AM EDT [facility] Creatinine 0.7 0.5 - 1.3 mg/dL 05/05/2024 9:02 AM EDT [facility] eGFR >90 >59 05/05/2024 9:02 AM EDT [facility] Comment:CKD-EPI (2020) in mL /min/1.73 sq meters. Sodium 139 136 - 145 mmol/L 05/05/2024 9:02 AM EDT [facility] Potassium 4.0 3.4 - 5.3 mmol/L 05/05/2024 9:02 AM EDT [facility] Chloride 101 98 - 107 mmol/L 05/05/2024 9:02 AM EDT [facility] CO2 27 22 - 33 mmol/L 05/05/2024 9:02 AM EDT [facility] Anion Gap 11 05/05/2024 9:02 AM EDT [facility] Calcium 9.6 8.7 - 10.5 mg/dL 05/05/2024 9:02 AM EDT BUN/Creatinine Ratio 16 10.0 - 25.0 Ratio 05/05/2024 9:02 AM EDT Blood (Plasma/Serum) 05/05/2024 8:25 AM EDT 05/05/2024 8:34 AM EDT Wendy Valenzuela ZIPPER SETTER LAB BLOOD OR DERABLES [facility] [address] [place] [address], [facility] [address] [place] [address] from Last 3 Months or Most Recently Relevant to Health Maintenance Advance Directives * Full Code (Latest Code Status on File) Date Activated Date Inactivated Comments 05/26/2024 5:13 PM Care Teams Control Room Technician Relationship Specialty Start Date End Date Dale Lerma DO [address] [address] PCP - General Family Medicine 11/12/23
--- OUTSIDE RECORDS SUMMARY | 2025-01-30 15:56 | XMS_ITS | Encounter Summary ---
Author Organization [facility] Address [address] [place] [address] Care Team Providers Care Hr Leader Name Role Phone Dale Baptiste DO Primary Care Provide r Encounter Details Date Type Department Care Team (Late st Contact Info) Description 02/27/2022 Orders Only [facility] [address] [place] [address] Silvio James [address] [place] [address] Social History Tobacco Use Types Packs/Day Years Used Date Smoking Tobacco: Never Smokeless Tobacco: Former Chew Alcohol Use Standard Drinks/Week Comments Not Currently 0 (1 standard drink = 0.6 oz pur e alcohol) Sex and Gender Information Value Date Recorded Sex Assigned at Not on file Legal Sex Male 8:04 AM EST Gender Identity Not on file Sexual Orientation Not on file documented as of this encounter Plan of Treatment Not on file documented as of this encounter Visit Diagnoses Not on filedocumented in this encounter Care Teams Hr Leader Relationship Specialty Start Date End Date Dale Baptiste DO [address] [facility] [address] [place] [address] PCP - General Family Medicine 10/21/21 documented as of this encounter
--- OUTSIDE RECORDS SUMMARY | 2025-01-30 15:56 | XMS_ITS | Continuity of Care Document ---
Author Organization [facility] Address [address] [place] [id number] Phone [phone] Care Team Providers Care Property Man Name Role Phone To Be Determined Care Team Information Draw Machine Operator Unavailable Assessments Description No Information Available Plan of Treatment No Information Available
== END 2025-01-30 13:53 | disposition home or self-care (01) ==
PROVIDERS: PCP Family Medicine Sports Medicine; Visit Provider Anesthesiology
DX: G89.4 Chronic pain syndrome (principal); M54.12 Radiculopathy, cervical region; M50.30 Other cervical disc degeneration, unspecified cervical region; M47.812 Spondylosis without myelopathy or radiculopathy, cervical region; Z45.1 Encounter for adjustment and management of infusion pump; Z96.89 Presence of other specified functional implants; M96.1 Postlaminectomy syndrome, not elsewhere classified; Z79.891 Long term (current) use of opiate analgesic
CPT/HCPCS: 95991; 99213

== ENCOUNTER → 2025-01-30 13:30 | Outpatient (BNVA) | payer OTHER, SELFPAY | PROVIDERS: PCP Family Medicine Sports Medicine; Visit Provider Anesthesiology | DX: G89.4 Chronic pain syndrome (principal); M47.22 Other spondylosis with radiculopathy, cervical region; M50.30 Other cervical disc degeneration, unspecified cervical region; M96.1 Postlaminectomy syndrome, not elsewhere classified; Z79.891 Long term (current) use of opiate analgesic; Z96.89 Presence of other specified functional implants | CPT/HCPCS: 99212 ==

== ENCOUNTER 2025-04-25 06:44 | Outpatient (REF) | payer OTHER, SELFPAY ==
--- OUTSIDE RECORDS SUMMARY | 2025-04-25 06:46 | XMS_ITS | Clinical Summary ---
Author Organization [facility] Address [address] [place] [address] Care Team Providers Care Trimmer Hand Name Role Phone Dale Lerma DO Primary Care Provider [phone] Allergies Active Allergy Reactions Criticality Noted Date Comments Sitagliptin Anaphylaxis High 03/25/2024 Penicillins Anaphylaxis High 03/25/2024 Medications atenolol (TENORMIN) 50 MG tablet Take 1 tablet (50 mg total) by mouth daily. Active insulin glargine (Lantus SoloStar) 100 units/mL prefilled pen injection Inject 75 Units under the skin 2 (two) times a day in the morning and the early afternoon. 4 Active insulin lispro (HumaLOG) 100 units/mL injection INJECT 1 UNIT SUBCUTANEOUSLY FOR EVERY 5 GRAMS OF CARBS, SCALE WITH MEALS DIRECTED BETWEEN 40-70UNITS/DAY 4 Active OMEprazole (PriLOSEC) 20 MG capsule Take 1 capsule (20 mg total) by mouth daily. 3 Active Ozempic, 0.25 or 0.5 MG/DOSE, 2 MG/3ML prefilled pen injection INJECT 0.5 MG SUBCUTANEOUSLY QWEEK-Thursday 4 Active sertraline (ZOLOFT) 100 MG tablet Take [...] coated (ECOTRIN LOW STRENGTH) 81 MG EC tabletIndicati ons:Arthritis of right shoulder region Take 1 tablet (81 mg total) by mouth every 12 (twelve) hours around the clock. 4 Active celeCOXIB (CeleBREX) 200 MG capsuleIndicat ions:Arthritis of right shoulder region [The details of the medication are not available because there are pending changes by a home health clinician.] 4 Active Additional Information Patient taking differently:200 mg Oral 2 times daily,TAKING QD-AM, Reported on 05/28/2024 gabapentin (NEURONTIN) 100 MG capsuleIndicat ions:Arthritis of right shoulder region Take 2 capsules (200 mg total) by mouth 2 (two) times a day. 4 Active oxyCODONE (ROXICODONE) 5 MG immediate release tabletIndicati ons:Arthritis of right shoulder region Take 1 tablet (5 mg total) by mouth every 4 (four) hours as needed for severe pain. Max Daily Amount: 30 mg 4 Active senna-docusate (SENNA-S) 8.6-50 MGIndications: Arthritis of right shoulder region Take 2 tablets by mouth nightly. 60 tablet 4 Active acetaminophen (TYLENOL) 325 MG tabletIndicati ons:Arthritis of right shoulder region Take 3 tablets (975 mg total) by mouth every 8 (eight) hours around the clock. 4 Active ibuprofen (MOTRIN) 200 MG tablet Take 800 mg by mouth 3 times daily (every 8 hours) as needed for moderate pain. Active dextrose 1 g Chew Tab Chew 2 g daily as needed for low blood sugar. Active diphenhydrAMIN E (BENADRYL) 25 MG tablet Take 25 mg [...] Assigned at Male 01/21/2023 2:07 PM EST Legal Sex Male 12:20 PM EST Gender Identity Male 01/21/2023 2:07 [...] Done Comments Hepatitis C Virus Screening 1972 Foot Exam 1982 Lipid Panel 1982 Ophthalmology Exam 1982 HIV Screening 1985 Microalbumin/Creatinine Rati o Urine 1990 DTaP/Tdap/Td Vaccines (1 - Tdap) 1991 Hepatitis B Vaccines (1 of 3 - 19+ 3-dose series) 1991 Pneumococcal Vaccines 50+ (1 of 2 - PCV) 1991 Colonoscopy 2017 Zoster (Shingles) Vaccine (1 of 2) 2022 COVID-19 Vaccine (4 - 2023-2 5 season) 2024 09/19/2023, 09/13/2022, 08/26/2021 Hemoglobin A1C 11/22/2024 05/23/2024, 05/05/2024 Creatinine with GFR 05/05/2025 05/05/2024, Influenza Vaccine 06/30/2025 09/19/2023, , 08/30/2022, Additional history exists Medical Devices Implanted Type Area Roofer Helper Device Identifier Shelf Expiration Date Model / Serial / Lot Ar-9400-Sbk Implant Fixation Eclps Speedscap Sterl Lf Disp - [id number] Implanted:Qt y: 1 on 05/26/2024 by Az Schafer MD at [facility] [place] Right: Shoulder UNKNOWN 09/29/2028 AR-9400- SBK / / [id number] [place] Suture 4.75mm 2 Swivelock C Fibertak Tgtl 2 Load - [id number] Implanted:Qt y: 1 on 06/06/2024 by Az Schafer MD at [facility] [place] Right: Shoulder [employer] 09/29/2024 AR-2324B CT-2 / / [id number]-- Cement Bone Smpx Speedset 20ml 40gm Fd Anbtc Sterl Lf Disp - [id number] Implanted:Qt y: 1 on 05/26/2024 by Az Schafer MD at [facility] C[place] Right: Shoulder [employer] GAVIN [id number] 08/29/2025 6192-1-0 01 / / [id number]- Cement Bone Smpx Speedset 20ml 40gm Fd Anbtc Sterl Lf Disp - [id number] Implanted:Qt y: 1 on 05/26/2024 by Az Schafer MD at [facility] [place] Right: Shoulder [employer] GAVIN [id number] 08/29/2025 6192-1-0 01 / / [id number]-- Cement Bone Smpx Speedset 20ml 40gm Fd Anbtc Sterl Lf Disp - [id number] Implanted:Qt y: 1 on 05/26/2024 by Az Schafer MD at [facility] [place] Right: Shoulder [employer] [id number] 08/29/2025 6192-1-0 01 / / [id number]-- Cement Bone Smpx Speedset 20ml 40gm Fd Anbtc Sterl Lf Disp - [id number] Implanted:Qt y: 1 on 05/26/2024 by Az Schafer MD at [facility] [place] Right: Shoulder [employer] [id number] 08/29/2025 6192-1-0 01 / / [id number]- Vadito Vaultlock Large Glenoid Implant Implanted:Qt y: 1 on 05/26/2024 by Az Schafer MD at [facility] Joint Prosthesis Right: Shoulder UNKNOWN 07/30/2026 AR-06- 03 / / [id number] Ar-9349-18 Eclipse Humeral Head [id number] Implanted:Qt y: 1 on 05/26/2024 by Az Schafer MD at [facility] Joint Prosthesis Right: Shoulder UNKNOWN 10/29/2027 AR-9349- 18 / / [id number] Eclipse Truunion Slotted Tps Cap 47mm Implanted:Qt y: 1 on 05/26/2024 by Az Schafer MD at [facility] Joint Prosthesis Right: Shoulder UNKNOWN 09/29/2028 AR-9301- 47CPC / / [id number] Ar-9300-03 Eclipse Large Cage Screw Implanted:Qt y: 1 on 05/26/2024 by Az Schafer MD at [facility] Screw Right: Shoulder UNKNOWN 09/29/2025 AR-9301- 03 / / [id number] Procedures Procedure Name Priority Date/Time Associated Diagnosis Comments HEMOGLOBIN A1C Routine 05/23/2024 7:33 AM EDT BASIC METABOLIC PANEL Routine 05/05/2024 8:25 AM EDT Preoperative examination from Last 3 Months or Most Recently Relevant to Health Maintenance Results * (ABNORMAL) Hemoglobin A1C (05/23/2024 7:33 AM EDT) Hemoglobin A1C 7.5(H) <5.7 % of total Hgb [facility] Comment: For someone without known diabetes, a [...] change in test platforms from the Sepulveda Occupational Health And Safety Officer to the Opal lucinda c503 may have shifted HbA1c results compared to historical results. Based on laboratory validation testing conducted at [facility], the Opal platform relative to the Sepulveda [...] AM EDT 05/23/2024 7:33 AM EDT Narrative [facility] - 05/23/2024 5:37 PM EDT FASTING:YES FASTING: YES Ordered by External Provider. [id number], AZ SCHAFER, us External Provider LAB BLOOD ORDERABLES Final Result [facility] [address] [place] [id number] * (ABNORMAL) Basic Metabolic Panel (05/05/2024 8:25 AM EDT) [facility] Glucose 172(H) 65 - 99 mg/dL 05/05/2024 9:02 AM EDT [facility] Comment:Fasting: <100 mg/dL, Non-Fasting: <200 mg/dL (ADA 2005) Blood Urea Nitrogen (BUN) 11 8 - 21 mg/dL 05/05/2024 9:02 AM EDT [facility] Creatinine 0.7 0.5 - 1.3 mg/dL 05/05/2024 9:02 AM EDT [facility] eGFR >90 >59 05/05/2024 9:02 AM EDT [facility] Comment:CKD-EPI (2020) in mL /min/1.73 sq meters. Sodium 139 136 - 145 mmol/L 05/05/2024 9:02 AM EDT [facility] Potassium 4.0 3.4 - 5.3 mmol/L 05/05/2024 9:02 AM EDT [facility] Chloride 101 98 - 107 mmol/L 05/05/2024 9:02 AM EDT [facility] CO2 27 22 - 33 mmol/L 05/05/2024 9:02 AM EDT [facility] Anion Gap 11 05/05/2024 9:02 AM EDT [facility] Calcium 9.6 8.7 - 10.5 mg/dL 05/05/2024 9:02 AM EDT [facility] BUN/Creatinine Ratio 16 10.0 - 25.0 Ratio 05/05/2024 9:02 AM EDT [facility] Blood (Plasma/Serum) 05/05/2024 8:25 AM EDT 05/05/2024 8:34 AM EDT Wendy Valenzuela PIPE FITTER SOFT COPPER LAB BLOOD ORDERABLES Final Result [facility] [address] [place] [address], [facility] [address] [place] [address] from Last 3 Months or Most Recently Relevant to Health Maintenance [facility] Advance Directives * Full Code (Latest Code Status on File) Date Activated Date Inactivated Comments 05/26/2024 5:13 PM Care Teams Trimmer Hand Relationship Specialty Start Date End Date Dale Lerma DO [address] [address] PCP - General Family Medicine 11/12/23
== END 2025-04-25 06:45 | disposition home or self-care (01) ==
LOC: CF 06:44
PROVIDERS: Visit Provider Anesthesiology
DX: M96.1 Postlaminectomy syndrome, not elsewhere classified (principal); M54.16 Radiculopathy, lumbar region
CPT/HCPCS: 62370; 99212

== ENCOUNTER 2025-04-25 12:01 | Outpatient (AMB) | payer OTHER, SELFPAY ==
[2025-04-25 12:20] VITALS: BP 141/74; PULSE 82; O2SAT 98; BMI 39.7
--- NOTE | 2025-04-25 12:20 | A.OFFVIS_ITS ---
Vital Signs 04/25/25 12:20 Height 5 ft 9 in Weight 269 lb BMI 39.7 BP 141/74 H Blood Pressure Location Lt brachial Position Sitting Pulse 82 Pulse Source Pulse Oximeter Pulse Oximetry (%) 98 Oxygen Delivery Method Room Air Intake Visit Reasons: pump fill A P Supervisor Required: No Allergies penicillin V Allergy (Severe, Verified 04/25/25 12:21) anaphylaxis sitagliptin [From Januvia] Allergy (Severe, Verified 04/25/25 12:21) Anaphylaxis Medication List - Last Reconciled 04/25/25 by Martina Velazco, TDP DISPLAYS ANALYST atenolol 50 mg PO DAILY blood-glucose sensor (Dexcom G6 Sensor device) As directed blood-glucose transmitter (Dexcom G6 Transmitter device) As directed furosemide 10 mg PO QAM insulin lispro (Humalog U-100 Insulin) subcut omeprazole 20 mg PO DAILY sertraline (Zoloft) 200 mg PO DAILY tirzepatide (Mounjaro) mg subcut trazodone 150 mg PO DAILY HPI Comments Details: Cooper is in my office again to refill medications in his pain pump.? Patient reports adequate pain relief with the pain pump however he started recently to complained on increasing numbness in the entire left lower extremity and weakness in the left lower extremity which is exacerbated by walking. 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 Pump refill is as below. Discrepancy today is also increased and it is equal to 4.9 mL. He has chronic diabetic patient on insulin pump. At the same time his social circumstances significantly changed. He lost his job, however he hopes it will be restored. His workman's comp insurance give obstacles to [employer] with next pump refills. His insurance is restored. ? He is suffering from postlaminectomy syndrome and diabetic polyneuropathy. In the past we discussed spinal cord stimulation to help diabetic polyneuropathy, however at this point with insurance difficulties this conversation probably is a moot point. He has intrathecal pain pump for the past 7 years.? The intrathecal pain pump came to the end of life.? He went for the procedure of removal and replacement of intrathecal pain pump on 11/07/2022.? During the procedure we found several kinks of the intrathecal catheter.? Intrathecal catheter was replaced.? Intraoperatively patient had significant bleeding in the spinal wound were insertion of the catheter was made.? The ?snow ?surgical application was used to stop the bleeding in the area of the midline spinal incision.? In the patient's abdominal incision the old pump was found to be encapsulated in the antibiotic pouch.? The pouch was partially excised as it was calcified and causing severe adhesions in surrounding areas. [facility] Medical History (Updated 04/25/25 @ 12:16 by Monica Rai APRN, SALES OUTFITTER) FERNANDO on CPAP Elevated cholesterol Diabetes GERD (gastroesophageal reflux disease) HTN (hypertension) Implantable intrathecal infusion pump present half-way (current) use of opiate analgesic Chronic pain syndrome Postlaminectomy syndrome Surgical History (Updated 11/03/22 @ 11:51 by Arlette Vergara RN) Hx of appendectomy History of back surgery History of surgery Social History Patient Tobacco Use Status: Never used Tobacco Review of Systems Const All systems reviewed & are unremarkable except as noted in HPI and below ENT Reports Normal hearing present Neuro Reports Normal hearing present, Denies Abnormal speech present and Denies Sen prashanth deficit (Neuro) Physical Exam Vital Signs: Last Vital Signs Pulse 82 04/25/25 12:20 BP 141/74 H 04/25/25 12:20 Pulse Ox 98 04/25/25 12:20 Oxygen Delivery Method Room Air 04/25/25 12:20 BMI result Body Mass Index 39.7 Const General: cooperative, healthy appearing, comfortable and well developed; No no acute distress Nutritional Appearance: obese morbidly obese and overweight Orientation/consciousness: patient oriented x3 Limitations: no limitations Eyes General: appearance normal, both eyes and all related structures Pupils: Equal, round and reactive pupils present EOM: EOMs intact bilaterally Neck Other: Limited range of motion of the cervical spine. Unable to extend had backwards due to severe pain. Axial compression does not aggravate the pain. However axial alleviation make his pain much better. Tenderness on palpation mostly on paraspinal as well as central spinal regions at the projection of the C4-C5 C6 and C7 spinous processes. Neck: No full ROM Chest Chest palpation & inspection: normal inspection of the chest Resp Effort & Inspection: normal respiratory effort, able to speak in complete sentences, normal respiratory pattern, no audible wheezes and no cough Cardio Jugular venous distension: no JVD GI Inspection: Yes normal to inspection Back/Spine/Pelvis Other: On the physical examination he has pump in the left abdomen. He also has multiple scars from previous surgeries: He has Pfannenstiel incision in the lower abdomen for the anterior fusion and multiple midline and paramedian scars in projection of L5 and S1 vertebra as on the back. He denies weakness in bilateral lower extremities he denies incontinence with urine and/or stool he denies Valsalva maneuver positive. SLR is positive on the right and equivocal on the left. Neuro General: patient oriented x3 Cranial nerves: Yes Equal, round and reactive pupils present and Yes Normal hearing present Cognition (Neuro): normal cognition Speech: No Abnormal speech present Gait exam (Neuro): Normal gait present Motor exam (neuro): 5/5 motor strength present throughout Sensory Exam: No Sensory deficit (Neuro) Psych Appearance: grossly normal Mental Status: mental status grossly normal Speech and movement: Normal speech and movement present Affect: normal affect Attitude: cooperative Thought process: Normal thought process present Thought content: Normal thought content present Insight: Good insight present (Psych) Judgement: Good judgement present (Psych) Assessment & Plan Assessment & Plan (1) Radiculopathy of cervical region: Code(s): M54.12 - Radiculopathy, cervical region Category: Medical (2) Degeneration, intervertebral disc, cervical: Code(s): M50.30 - Other cervical disc degeneration, unspecified cervical region Category: Medical (3) Spondylosis of cervical joint without myelopathy: Code(s): M47.812 - Spondylosis without myelopathy or radiculopathy, cervical region Category: Medical (4) Implantable intrathecal infusion pump present: Comment: last refill 07/07/22 Code(s): Z96.89 - Presence of other specified functional implants Category: Medical (5) Chronic pain syndrome: Code(s): G89.4 - Chronic pain syndrome Category: Medical (6) Postlaminectomy syndrome: Code(s): M96.1 - Postlaminectomy syndrome, not elsewhere classified Category: Medical (7) half-way (current) use of opiate analgesic: Code(s): Z79.891 - half-way (current) use of opiate analgesic Category: Medical Plan: Cooper is doing okay however radiculopathy symptoms progressing at this time. I decided to send this patient for MRI of the lumbar spine. Patient agreed to go for the procedure. This will be MRI with and without contrast. Pump refill see as below. Plan THE PATIENT CAME TODAY IN the office FOR THE CHANGE OF THE MEDICATION IN his P AIN PUMP.? ?The pump was interrogated and the residual amount of fluid was found to be?1.1 mL. HE WAS POSITIONED supine on the bed AND THE AREA OF THE INTRATHECAL PUMP WAS PREPPED WITH CHLORAPREP. The fenestrated drape was sterilely applied over the area of the pump. Sterile gloves were worn and of the aspiration system was assembled containing 2 in 22 gauge noncoring needle, the needle was connected to extension tubing which was connected to the 20 cc sterile syringe. The pain pump was palpated under the skin in the patient's left abdominal area. The needle was inserted through the skin and the central plug of the pain pump and fluid was aspirated. The clear fluid was going into the syringe the total amount of the fluid was 5.0 mL .. After that a new batch? of medication was obtained which was containing dilaudid in concentration 4 mg/ml and bupivacaine 40 mg per ml. The admixture was made in two 20 cc syringes prepared by [facility] compounding pharmacy. The syringe was connected to the bacterial filter, and then connected to the extension tubing. After that the medication in the syringe was slowly instilled into the pump with aspirations at 35, 25, 15 and 5 cc villalba and good returns of the medication back to the syringe without any changes in collar indicating presence of blood or interstitial fluid.. after that the needle was removed and sterile dressing was applied in the for of the band-aid.. Orders: Orders MR lumbar spine wo/w con Today M54.16 - Radiculopathy, lumbar region, M96.1 - Postlaminectomy syndrome, not elsewhere classified Patient Instructions: I here by testify that I spent 35 minutes in conversation with this patient as well as planning his care and organizing this note. 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
== END 2025-04-25 12:59 | disposition home or self-care (01) ==
LOC: HO.PMCPRC 12:01
PROVIDERS: PCP Family Medicine Sports Medicine; Visit Provider Anesthesiology
DX: M54.12 Radiculopathy, cervical region (principal); M50.30 Other cervical disc degeneration, unspecified cervical region; M47.812 Spondylosis without myelopathy or radiculopathy, cervical region; G89.4 Chronic pain syndrome; M96.1 Postlaminectomy syndrome, not elsewhere classified; Z79.891 Long term (current) use of opiate analgesic; Z45.1 Encounter for adjustment and management of infusion pump
CPT/HCPCS: 62370; 99214

== ENCOUNTER 2025-06-07 12:47 | Outpatient (AMB) | payer OTHER, SELFPAY ==
--- NOTE | 2025-06-07 13:04 | MHC.OFFVIS ---
Vital Signs 06/07/25 13:05 Weight 250 lb BP 119/67 Blood Pressure Location Lt brachial Position Sitting Respiration 18 Pulse 82 Pulse Source Pulse Oximeter Pulse Oximetry (%) 98 Oxygen Delivery Method Room Air Intake Visit Reasons: ITDD REFILL Summer Clerk Required: No Raveler: Raveler Present Accompanied by: MENDY Mejia Allergies penicillin V Allergy (Severe, Verified 04/25/25 12:21) anaphylaxis sitagliptin (From Januvia) Allergy (Severe, Verified 04/25/25 12:21) Anaphylaxis HPI Comments Details: Cooper is in my office again to refill medications in his pain pump.? He reported today that he is moving down to [place], he is looking for a physician there. He requests referral to be provided to a local physician. Once he will find a physician in [place] we will provide referral for this patient. We refill his pump here possibly for the last time, however he may decide to go for his refill with us again at the end of July. He has chronic diabetic patient on insulin pump. At the same time his social circumstances significantly changed. He lost his job, however he hopes it will be restored. His workman's comp insurance give obstacles to [employer] with next pump refills. His insurance is restored. ? He is suffering from postlaminectomy syndrome and diabetic polyneuropathy. In the past we discussed spinal cord stimulation to help diabetic polyneuropathy, however at this point with insurance difficulties this conversation probably is a moot point. He has intrathecal pain pump for the past 7 years.? The intrathecal pain pump came to the end of life.? He went for the procedure of removal and replacement of intrathecal pain pump on 11/07/2022.? During the procedure we found several kinks of the intrathecal catheter.? Intrathecal catheter was replaced.? Intraoperatively patient had significant bleeding in the spinal wound were insertion of the catheter was made.? The ?snow ?surgical application was used to stop the bleeding in the area of the midline spinal incision.? In the patient's abdominal incision the old pump was found to be encapsulated in the antibiotic pouch.? The pouch was partially excised as it was calcified and causing severe adhesions in surrounding areas. [facility] Medical History (Updated 04/25/25 @ 12:16 by Monica Rai, DAY TREATMENT CLINICIAN/ART THERAPIST, DIE FORGER) FERNANDO on CPAP Elevated cholesterol Diabetes GERD (gastroesophageal reflux disease) HTN (hypertension) Implantable intrathecal infusion pump present penitentiary (current) use of opiate analgesic Chronic pain syndrome Postlaminectomy syndrome Surgical History (Updated 11/03/22 @ 11:51 by Arlette Vergara RN) Hx of appendectomy History of back surgery History of surgery Social History Patient Tobacco Use Status: Never used Tobacco Review of Systems Const All systems reviewed & are unremarkable except as noted in HPI and below ENT Reports Normal hearing present Neuro Reports Normal hearing present, Denies Abnormal speech present and Denies Sensory deficit (Neuro) Physical Exam Vital Signs: Last Vital Signs Pulse 82 06/07/25 13:05 Resp 18 06/07/25 13:05 BP 119/67 06/07/25 13:05 Pulse Ox 98 06/07/25 13:05 Oxygen Delivery Method Room Air 06/07/25 13:05 Const General: cooperative, healthy appearing, comfortable and well developed; No no acute distress Nutritional Appearance: obese morbidly obese and overweight Orientation/consciousness: patient oriented x3 Limitations: no limitations Eyes General: appearance normal, both eyes and all related structures Pupils: Equal, round and reactive pupils present EOM: EOMs intact bilaterally Neck Other: Limited range of motion of the cervical spine. Unable to extend had backwards due to severe pain. Axial compression does not aggravate the pain. However axial alleviation make his pain much better. Tenderness on palpation mostly on paraspinal as well as central spinal regions at the projection of the C4-C5 C6 and C7 spinous processes. Neck: No full ROM Chest Chest palpation & inspection: normal inspection of the chest Resp Effort & Inspection: normal respiratory effort, able to speak in complete sentences, normal respiratory pattern, no audible wheezes and no cough Cardio Jugular venous distension: no JVD GI Inspection: Yes normal to inspection Back/Spine/Pelvis Other: On the physical examination he has pump in the left abdomen. He also has multiple scars from previous surgeries: He has Pfannenstiel incision in the lower abdomen for the anterior fusion and multiple midline and paramedian scars in projection of L5 and S1 vertebra as on the back. He denies weakness in bilateral lower extremities he denies incontinence with urine and/or stool he denies Valsalva maneuver positive. SLR is positive on the right and equivocal on the left. Neuro General: patient oriented x3 Cranial nerves: Yes Equal, round and reactive pupils present and Yes Normal hearing present Cognition (Neuro): normal cognition Speech: No Abnormal speech present Gait exam (Neuro): Normal gait present Motor exam (neuro): 5/5 motor strength present throughout Sensory Exam: No Sensory deficit (Neuro) Psych Appearance: grossly normal Mental Status: mental status grossly normal Speech and movement: Normal speech and movement present Affect: normal affect Attitude: cooperative Thought process: Normal thought process present Thought content: Normal thought content present Insight: Good insight present (Psych) Judgement: Good judgement present (Psych) Assessment & Plan Assessment & Plan (1) Radiculopathy of cervical region: Code(s): M54.12 - Radiculopathy, cervical region Category: Medical (2) Degeneration, intervertebral disc, cervical: Code(s): M50.30 - Other cervical disc degeneration, unspecified cervical region Category: Medical (3) Spondylosis of cervical joint without myelopathy: Code(s): M47.812 - Spondylosis without myelopathy or radiculopathy, cervical region Category: Medical (4) Implantable intrathecal infusion pump present: Comment: last refill 07/07/22 Code(s): Z96.89 - Presence of other specified functional implants Category: Medical (5) Chronic pain syndrome: Code(s): G89.4 - Chronic pain syndrome Category: Medical (6) Postlaminectomy syndrome: Code(s): M96.1 - Postlaminectomy syndrome, not elsewhere classified Category: Medical (7) penitentiary (current) use of opiate analgesic: Code(s): Z79.891 - 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 I will provide the referral for this patient as soon as he will provide us the name and address of the physician who will be handling his pain pump in [place]. Plan THE PATIENT CAME TODAY IN the office FOR THE CHANGE OF THE MEDICATION IN his PAIN PUMP.? ?The pump was interrogated and the residual amount of fluid was found to be?17.9 mL. HE WAS POSITIONED supine on the bed AND THE AREA OF THE INTRATHECAL PUMP WAS PREPPED WITH CHLORAPREP. The fenestrated drape was sterilely applied over the area of the pump. Sterile gloves were worn and of the aspiration system was assembled containing 2 in 22 gauge noncoring needle, the needle was connected to extension tubing which was connected to the 20 cc sterile syringe. The pain pump was palpated under the skin in the patient's left abdominal area. The needle was inserted through the skin and the central plug of the pain pump and fluid was aspirated. The clear fluid was going into the syringe the total amount of the fluid was 19.6 mL .. After that a new batch? of medication was obtained which was containing dilaudid in concentration 4 mg/ml and bupivacaine 40 mg per ml. The admixture was made in two 20 cc syringes prepared by [facility] compounding pharmacy. The syringe was connected to the bacterial filter, and then connected to the extension tubing. After that the medication in the syringe was slowly instilled into the pump with aspirations at 35, 25, 15 and 5 cc villalba and good returns of the medication back to the syringe without any changes in collar indicating presence of blood or interstitial fluid.. after that the needle was removed and sterile dressing was applied in the for of the band-aid.. 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
[2025-06-07 13:05] VITALS: BP 119/67; PULSE 82; RESP 18; O2SAT 98
--- OUTSIDE RECORDS SUMMARY | 2025-06-07 13:40 | XMS_ITS ---
Author Name [facility] Organization Unknown Results Test Name/Text Value Interpretation Date Range Source POC Glucose 176.0 mg/dL Above high normal 05/27/2024 65 - 99 [facility] POC Glucose 145.0 mg/dL Above high normal 05/27/2024 65 - 99 [facility] POC Glucose 195.0 mg/dL Above high normal 05/27/2024 65 - 99 [facility] POC Glucose 169.0 mg/dL Above high normal 05/27/2024 65 - 99 [facility] Hct VFr Bld Auto 32.1 % Below low normal 05/27/2024 39 - 54 [facility] Hgb Bld-mCnc 11.0 g/dL Below low normal 05/27/2024 13 - 17.7 [facility] POC Glucose 192.0 mg/dL Above high normal 05/27/2024 65 - 99 [facility] POC Glucose 236.0 mg/dL Above high normal 05/27/2024 65 - 99 [facility] POC Glucose 211.0 mg/dL Above high normal 05/28/2024 65 - 99 [facility] POC Glucose 139.0 mg/dL Above high normal 05/26/2024 65 - 99 [facility] POC Glucose 79.0 mg/dL Normal 05/26/2024 65 - 99 [facility] Hgb A1c MFr Bld 9.4 % Above high normal 05/05/2024 - 5.7 [facility] Est. average glucose Bld gHb Est-mCnc 223.0 mg/dL Normal 05/05/2024 [facility] Result Not Detected Normal 05/05/2024 - [facility] MCH RBC Qn Auto 28.5 pg Normal 05/05/2024 27 - [address] Hct VFr Bld Auto 39.4 % Normal 05/05/2024 39 - 54 HH CCT Immature Platelet Fraction 0.8 % Below low normal 05/05/2024 1.2 - 8.6 [facility] MCV RBC Auto 83.0 fL Normal 05/05/2024 80 - 100 [facility] RBC num Bld Auto 4.74 Mil/uL Normal 05/05/2024 4.5 - 6.2 [facility] PMV Bld Auto 8.5 fL Normal 05/05/2024 7.5 - 12.5 [facility] Hgb Bld-mCnc 13.5 g/dL Normal 05/05/2024 13 - 17.7 [facility] Platelet num Bld Auto 131.0 Thou/uL Below low normal 024 150 - 450 [facility] WBC num Bld Auto 4.7 Thou/uL Normal 05/05/2024 4 - 11 [facility] MCHC RBC Auto-mCnc 34.3 g/dL Normal 05/05/2024 30 - 36 [facility] RDW RBC Auto-Rto 13.5 % Normal 05/05/2024 11.5 - 14.5 [facility] Anion Gap Bld-sCnc 11.0 Normal 05/05/2024 [facility] Sodium SerPl-sCnc 139.0 mmol/L Normal 05/05/2024 136 - 14 5 [facility] Chloride SerPl-sCnc 101.0 mmol/L Normal 05/05/2024 98 - 1 07 [facility] Potassium SerPl-sCnc 4.0 mmol/L Normal 05/05/2024 3.4 - 5 .3 [facility] BUN SerPl-mCnc 11.0 mg/dL Normal 05/05/2024 8 - [address] Glucose SerPl-mCnc 172.0 mg/dL Above high normal 05/05/2024 65 - 99 [facility] CO2 SerPl-sCnc 27.0 mmol/L Normal 05/05/2024 22 - 33 HH CCT Calcium SerPl-mCnc 9.6 mg/dL Normal 05/05/2024 8.7 - 10.5 [facility] GFR/BSA.pred SerPlBld NNN-AUO-LoASym >90.0 Normal 05/05/2024 59 - [facility] BUN/Creat SerPl 16.0 Ratio Normal 05/05/2024 10 - 25 HH CCT Creat SerPl-mCnc 0.7 mg/dL Normal 05/05/2024 0.5 - 1.3 HH CCT History of Medication Use Medication Directions Dispensed Refills Start Date End Date Status sertraline (ZOLOFT) 100 mg tablet Take 2 tablets (200 mg total) by mouth daily. 4 active oxyCODONE (ROXICODONE) 5 MG immediate release tablet Take 1 tablet (5 mg total) by mouth every 4 (four) hours as needed for severe pain. Max Daily Amount: 30 mg 4 06/04/20 24 active Ozempic, 0.25 or 0.5 MG/DOSE, 2 MG/3ML prefilled pen injection INJECT 0.5 MG SUBCUTANEOUSLY QWEEK-Thursday 4 active insulin lispro (HumaLOG/ADMELOG ) 100 units/mL injection PLEASE SEE ATTACHED FOR DETAILED DIRECTIONS 4 05/03/20 24 aborted Blockchain G6 TRANSMITTER device Use as directed 3 09/03/20 24 active doxycycline hyclateT ric 1 capsule (Oral) 2 times per day for 7 [id number] times per [id number] mg 3 suspended bupivacaineTakeNo da te recordedNo form recordedNo frequency recordedNo route recordedNo set duration recordedNo set duration amount recordedsuspendedNo dosage strength recordedNo dosage strength units of measure recorded suspended Humalog Usman KwikP en U-100TakeNo date recordedNo form recordedNo frequency recordedNo route recordedNo set duration recordedNo set duration amount recordedsuspendedNo dosage strength recordedNo dosage strength units of measure recorded suspended atenolol (TENORMIN) 50 MG tablet Take 1 tablet (50 mg total) by mouth daily. activ e atenoloL (TENORMIN) 50 mg tablet Take 1 tablet (50 mg total) by mouth daily. activ e dextrose 1 g Chew Tab Chew 2 g daily as needed for low blood sugar. active furosemide (LASIX) 20 mg tablet TAKE 1 TABLET BY MOUTH EVERY DAY FOR 90 DAYS active UNABLE TO FIND Inject 1 Application as directed daily at the same time. Pain pump hydromorphone 1.2005 mg/ bupivicane 12.005mg Pt can have up to 3 boluses daily each bolus has hydromorphone .2201 mg and bupivicaine 2.201 mg act jayleen Allergies Allergen Reaction Severity Comment Documented Date Source Statu s SITAGLIPTIN PHOSPHATE 08/19/2023 [facility] active CANAGLIFLOZIN 03/15/2021 [facility] activ e PENICILLINS ANAPHYLAXIS [facility] SITAGLIPTIN ANAPHYLAXIS [facility] Problems Problem Status Onset Date Problem Type Date of Resolution Source Type 2 diabetes mellitus without complication, with long-term current use of insulin (HC Code) (HC CODE) (HC Code) active EncounterDiagnosisAct [facility] Type 1 diabetes mellitus with unspecified complications active ProblemAct [facility] Cervical disc disorder with radiculopathy, unspecified cervical region active 2024-02-29 ProblemAct [facility] Pain in right shoulder active 2024-02-29 ProblemAct [facility] Encounter for medication refill active EncounterDiagnosisAct C [facility] Mild persistent asthma, uncomplicated active ProblemAct [facility] Morbid obesity active 2024-05-[address] Bilateral lower extremity edema active 2024-05-05 ProblemAct [facility] Pain management active 2024-05-26 ProblemAct [facility] Palpitations active 2024-05-05 ProblemAct [facility] S/P shoulder [...] lower back pain active 2024-05-05 ProblemAct [facility] Immunizations Vaccine Date Source Lot Number Status Influenza, injectable, quadr ivalent, preservative free 09/19/2023 [facility] [id number] completed Encounters Encounter Type [facility]counter Reason [facility]24 Ambulatory Primary osteoarthritis, right shoulder Primary osteoarthritis, right shoulder [facility] 05/26/2024 Ambulatory Encounter for other preprocedural examination Encounter for other preprocedural examination [facility] 05/05/2024 Ambulatory Unspecified mononeuropathy of unspecified upper limb Unspecified mononeuropathy of unspecified upper limb [facility] 04/07/2024 Emergency Hyperglycemia, unspecified Hyperglycemia, unspecified [facility] 03/25/2024 Ambulatory Primary osteoarthritis, right shoulder Primary osteoarthritis, right shoulder [facility] 03/14/2024 Ambulatory [facility] 04/06/2023 Care Team Organization Name Specialty Phone Email Start Date End [facility] [place] [facility] 202312/06/2024 [facility] 08/10/2024 11/30/2024 [facility] CLARKE [facility] Primary Care 03/11/2024 [facility] Not Found Primary Care 03/01/2024 [facility] Not Found Primary Care 02/29/2024 [facility] NO PCP Primary Care 11/09/2023 11/09/2023 [facility] 10/02/2023 024 [facility] PCP,No Primary Care 04/09/2023 02/15/2025
--- OUTSIDE RECORDS SUMMARY | 2025-06-07 13:40 | XMS_ITS | Encounter Summary ---
Author Organization [facility] Address [address] [place] [address] Care Team Providers Care Corporate Treasury Analyst Name Role Phone Dale Baptiste DO Primary Care Provide r Encounter Details Date Type Department Care Team (Late st Contact Info) Description 02/27/2022 Orders Only [facility] Xray [address] [place] [address] Erika Silvio [address] [place] [address] Social History Tobacco Use Types Packs/Day Years [...] on filedocumented in this encounter Care Teams Corporate Treasury Analyst Relationship Specialty Start Date End Date Dale Baptiste DO [address] [facility] [address] [place] [address] PCP - General Family Medicine 10/21/21 documented as of this encounter
--- OUTSIDE RECORDS SUMMARY | 2025-06-07 13:40 | XMS_ITS | Continuity of Care Document ---
Author Organization [facility] Address [address] [place] [address] Phone [phone] Care Team Providers Care Custodial Maintenance Worker Name Role Phone Ramon Russell D.O. Care Team Information Recei krystin Unavailable BUDDY ARREOLA M.D. Care Team Information Receive r Unavailable Ramon Russell D.O. Primary Care Physician Unav ailable Problems Active Problems Provider Date Benign neoplasm of colon Nikhil Marinelli DO O nset: 04/11/2025 Screening for malignant neoplasm of colon Lizeth Marinelli DO Onset: 04/11/2025 Allergies and adverse reactions Active Allergies Criticality Reaction Severity Comments Date Penicillin Unable to assess criticality 03/15/2025 Januvia Unable to assess criticality 03/15/2025 Vital Signs Date Vital Result Comment 03/15/2025 10:11am Height 69 inches 5'9 Weight 262.00 lb BMI (Body Mass Index) 38.7 kg/m2 Results Test Acquired Date Facility Test Result H/L Range N ote Biopsy 04/11/2025 [facility] Biopsy SEE NOTE 1 1 ANATOMIC PATHOLOGY REPORT SPECIMEN TRANSVERSE COLON; POLYP HOT SNARE DIAGNOSIS A) Polyp, transverse colon: - Multiple fragments of tubular adenoma. SS/kh (72399) MACROSCOPIC Jar and requisition labeled [id number], Cooper Jodijae, Specimen transverse colon polyp. Received in formalin are multiple kaur tissue fragments ranging in size from 0.1 cm to 0.8 cm. TS/1. Time to fixation 0 hours, duration of fixation 10 - 18 hours. zc MICROSCOPIC A) Performed. Jonathan Wilson MD Pathologist Electronically Signed on 04/13/2025 at 11:42 AM CPT Codes: 36979 ICD Codes: D12.3 Assessments Date Code Description Provider 04/11/2025 Z12.11 Encounter for sc reening for malignant neoplasm of colon Nikhil Marinelli, DO 04/11/2025 D12.3 Benign neoplasm of transvers e colon Nikhil Marinelli, DO 04/11/2025 K64.8 Other hemorrhoids Nikhil Marinelli, Plan of Treatment No Information Available
--- OUTSIDE RECORDS SUMMARY | 2025-06-07 13:40 | XMS_ITS | Encounter Summary ---
Author Organization [facility] Address [address] [place] [id number] Care Team Providers Care Diamond Driller Helper Name Role Phone Referring, No Primary Care Provider Unavailabl e Encounter Details Date Type Department Care Team (Late st Contact Info) Description 03/31/2024 Abstract [facility] [address] [facility], [address] [place] [address] Bony Anderson MD [address] [place] [address] [address] [place] [id number] Social History Tobacco Use Types Packs/Day Years Used Date Smoking Tobacco: Never Sex and Gender Information Value Date Recorded Sex Assigned at Not on file Legal Sex Male 9:57 AM EST Gender Identity Not on file Sexual Orientation Not on file documented as of this encounter Plan of Treatment Not on file documented as of this encounter Visit Diagnoses Not on filedocumented in this encounter Care Teams Diamond Driller Helper Relationship Specialty Start Date End Date Referring, No PCP - General 10/08/24 documented as of this encounter
--- OUTSIDE RECORDS SUMMARY | 2025-06-07 13:40 | XMS_ITS | Clinical Summary ---
Author Organization [facility] Address [address] [place] [address] Care Team Providers Care Wireless Internet Installer Name Role Phone Unavailable Primary Care Provider Unavailabl e Immunizations Immunization Administration Dates Next Due COVID-19, mRNA (Pfizer [...] 5 season) 2024 09/19/2023, 08/26/2021 Influenza (#1) 2025 09/19/2023, 08/30/2022, 10/17/2021 HPV Vaccine Aged Out [...]
--- OUTSIDE RECORDS SUMMARY | 2025-06-07 13:40 | XMS_ITS | Clinical Summary ---
Author Organization [facility] Address [address] [place] [address] Care Team Providers Care Aeronautical Engineering Professor Name Role Phone Dale Lerma DO Primary Care Provider Allergies Active Allergy Reactions Criticality Noted Date [...] 72 06/06/2024 2:40 PM EDT Temperature 36.1 C (96.9 F) 06/06/2024 2:40 PM EDT Respiratory Rate 16 06/06/2024 1:06 PM EDT [...] history exists Medical Devices Implanted Type Area Chain Mortiser Operator Device Identifier Shelf Expiration Date Model / Serial / Lot Ar-9400-Sbk Implant Fixation Eclps Speedscap Sterl Lf Disp - [id number] Implanted:Qt y: 1 on 05/26/2024 by Az Schafer MD at [facility] [place] Right: Shoulder UNKNOWN 09/29/2028 AR-9400- SBK / / [id number] [place] Suture 4.75mm 2 Swivelock C Fibertak Tgtl 2 Load - [id number] Implanted:Qt y: 1 on 06/06/2024 by Az Schafer MD at [facility] Right: Shoulder [employer] 09/29/20[address] [id number] CT-2 / / [id number]- Cement Bone Smpx Speedset 20ml 40gm Fd Anbtc Sterl Lf Disp - [id number] Implanted:Qt y: 1 on 05/26/2024 by Az Schafer MD at [facility] [place] Right: Shoulder [employer] GAVIN [id number] 08/29/2025 6192-1-0 01 / / [id number] 6191- Cement Bone Smpx Speedset 20ml 40gm Fd Anbtc Sterl Lf Disp - [id number] Implanted:Qt y: 1 on 05/26/2024 by Az Schafer MD at [facility] [place] Right: Shoulder [employer] GAVIN [id number] 08/29/2025 6192-1-0 01 / / [id number] 6191- Cement Bone Smpx Speedset 20ml 40gm Fd Anbtc Sterl Lf Disp - [id number] Implanted:Qt y: 1 on 05/26/2024 by Az Schafer MD at [facility] [place] Right: Shoulder [employer]IN [id number] 08/29/2025 6192-1-0 01 / / [id number] 6191- Cement Bone Smpx Speedset 20ml 40gm Fd Anbtc Sterl Lf Disp - [id number] Implanted:Qt y: 1 on 05/26/2024 by Az Schafer MD at [facility] [place] Right: Shoulder [employer] [id number] 08/29/2025 6192-1-0 01 / / [id number] [place] Vaultlock Large Glenoid Implant Implanted:Qt y: 1 on 05/26/2024 by Az Schafer MD at [facility] Joint Prosthesis Right: Shoulder UNKNOWN 07/30/2026 AR-9106- 03 / / [id number] Eclipse Humeral Head [id number] Implanted:Qt y: 1 on 05/26/2024 by Az Schafer MD at [facility] Joint Prosthesis Right: Shoulder UNKNOWN 10/29/2027 AR-9349- 18 / / [id number] Eclipse Truunion Slotted Tps Cap 47mm Implanted:Qt y: 1 on 05/26/2024 by Az Schafer MD at [facility] Joint Prosthesis Right: Shoulder UNKNOWN 09/29/2028 AR-9301- 47CPC / / [id number] -01-03 Eclipse Large Cage Screw Implanted:Qt y: 1 on 05/26/2024 by Az Schafer MD at [facility] Screw Right: Shoulder UNKNOWN 09/29/2025 AR-9301- 03 / / [id number] Procedures Procedure Name Priority Date/Time Associated Diagnosis Comments HEMOGLOBIN A1C Routine 05/23/2024 7:33 AM EDT BASIC METABOLIC PANEL Routine 05/05/2024 8:25 AM EDT Preoperative examination from Last 3 Months or Most Recently Relevant to Health Maintenance Results * (ABNORMAL) Hemoglobin A1C (05/23/2024 7:33 AM EDT) Hemoglobin A1C 7.5(H) <5.7 % of total Hgb [facility] Comment: For someone without known diabetes, a [...] A1c for diagnosis of diabetes for children. This test was performed on the Opal lucinda c503 platform. Effective 02/01/24, a change in test platforms from the Sepulveda [employer]amic Plater to the Opal lucinda c503 may have shifted HbA1c results compared to historical results. Based on laboratory validation testing conducted at [facility], the Opal platform relative to the Sepulveda [...] 7:33 AM EDT 05/23/2024 7:33 AM EDT [facility] - 05/23/2024 5:37 PM EDT FASTING:YES FASTING: YES Ordered by External Provider. [id number], AZ SCHAFER, us External Provider LAB BLOOD ORDERABLES Final Result [facility] [address] [place] [phone] * (ABNORMAL) Basic Metabolic Panel (05/05/2024 8:25 AM EDT) Glucose 172(H) 65 - 99 mg/dL 05/05/2024 9:02 AM [facility] Comment:Fasting: <100 mg/dL, Non-Fasting: <200 mg/dL (ADA 2004) Blood Urea Nitrogen (BUN) 11 8 - 21 mg/dL 05/05/2024 9:02 AM [facility] Creatinine 0.7 0.5 - 1.3 mg/dL 05/05/2024 [facility] e[facility] >90 >59 05/05/2024 9:02 AM [facility] Comment:CKD-EPI (2020) in mL /min/1.73 sq meters. Sodium 139 136 - 145 mmol/L 05/05/2024 9:02 AM EDT [facility] Potassium 4.0 3.4 - 5.3 mmol/L 05/05/2024 9:02 AM EDT [facility] Chloride 101 98 - 107 mmol/L 05/05/2024 9:02 AM EDT [facility] CO2 27 22 - 33 mmol/L 05/05/2024 9:02 AM EDT [facility] Anion Gap 11 05/05/2024 9:02 AM EDT [facility] Calcium 9.6 8.7 - 10.5 mg/dL 05/05/2024 9:02 AM EDT [facility] BUN/Creatinine Ratio 16 10.0 - 25.0 Ratio 05/05/2024 9:02 AM EDT [facility] Blood (Plasma/Serum) 05/05/2024 8:25 AM EDT 05/05/2024 8:34 AM EDT Wendy Valenzuela [facility] LAB BLOOD ORDERABLES Final Result Performing Organization Address City/State/[facility] Co de Phone Number [facility] [address] [place] [address], [facility] [address] [place] [address] from Last 3 Months or Most Recently Relevant to Health Maintenance Insurance [facility] Advance Directives * Full Code (Latest Code Status on File) Date Activated Date Inactivated Comments 05/26/2024 5:13 PM Care Teams Aeronautical Engineering Professor Relationship Specialty Start Date End Date Dale Lerma DO [address] [address] PCP - General Family Medicine 11/12/23
--- OUTSIDE RECORDS SUMMARY | 2025-06-07 13:41 | XMS_ITS | Patient Health Record ---
Author Organization [facility] Address [address] [facility] [address] [place] [address] Care Team Providers Care Program Architect Name Role Phone Dale Baptiste Primary Care Provider [phone] Dale Baptiste MD Unavailable Unavailable Allergies Allergen (clinical drug ingredient) Drug/Non Drug Allergy documented on EMR Reaction Allergy Type Onset Date Status penicillin Unknown Drug Allergy Active sitagliptin Januvia Unknown Drug Allergy Activ e canagliflozin Invokana Unknown Drug Allergy Act jayleen Reason For Referral No Information Medications Medication SIG (Take, Route, Fr equency, Duration) Notes Start Date End Date Status Insulin Syringe 0.3cc 30g x 1/2 , 100 use to inject humalog insulin 3 times a day; Duration: 90 days Active Pen Needle 31g 6mm, 100 use to inject ba saglar insulin once a day; Duration: 90 days Active sertraline 100 mg tablet 2 tabs orally o nce a day; Duration: 30 days Active omeprazole 20 mg delayed release capsule 1 cap(s) orally once a day; Duration: 90 days Active Lantus Solostar Pen Active Ozempic 2 mg/1.5 mL (0.25 mg or 0.5 mg dose) solution 0.5mg subcutaneously once a week Active furosemide 20 mg tablet 1 tab(s) orally once a day; Duration: 90 days Active HumaLOG 100 units/mL solution as per sliding scale subcutaneously 3 times a day with meals Active traZODone 150 mg tablet 1 tab(s) orally once a day at bedtime; Duration: 90 days Active atenolol 50 mg tablet 1 tab(s) orally on ce a day; Duration: 30 day(s) Active Social History Tobacco Use: Social History Observation Description Date Smoking Status WARNING: Information temporarily unavailable Social History Social History Social Info Question Answer Notes Smoking Status / Tobacco Are you a: vap es daily for several years Additional Details Category Social Info Options Details Social History 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 says all are older and living on their own. Problems Problem Type SNOMED Code ICD Code Onset Dates Problem Status W/U Status Risk Notes Problem Polyneuropathy due to type 2 diabetes mellitus (085878854) Type 2 diabetes mellitus with diabetic polyneuropathy (E11.42) Active confirmed Problem Chronic postoperative pain (860389159661794) Other chronic postprocedural pain (G89.28) Active confirmed Problem Long-term current use of insulin (077546047) MCFP (current) use of insulin (Z79.4) Active confirmed Problem Mental disorder caused by drug (179698010) Tobacco use disorder, continuous (F17.209) Active confirmed Problem Obstructive sleep apnea (66229505) Obstructive sleep apnea (G47.33) Active confirmed Problem Gastroesophageal reflux disease (108331055) GERD without esophagitis (K21.9) Active confirmed Problem Sleep disorder (31236090) Sleep disorder (G47.9) Active confirmed Problem Moderate recurrent major depression (23077875) Moderate episode of recurrent major depressive disorder (F33.1) Active confirmed Encounters Encounter Location Date Provider Diagnosis [facility] [address] [phone] 09/21/2024 Dale Baptiste [facility] [address] [place] [phone] 11/01/2024 Dale Baptiste Plan Of Treatment Pending Test Test Name Order Date X ray : Knee, left 03/14/2021 Mammogram 3D left breast with add views and ultrasound if needed 04/08/2024 Insurance Providers Payer Name Payer Address Payer Phone Subscriber Number Group Number Insured Name Patient Relationship to Insured Coverage Start Date Coverage End Date [employer] [facility] [address] ANGELO Barrios [phone] [id number] Cooper Butts Self - patient is the insured Medical (General) History Medical History History ICD Code chronic low back pain depression type 2 DM symptomatic PVCs lower extremity swelling GERD asthma FERNANDO- using CPAP right shoulder arthritis Surgical History Surgery Date(Month/Year) tonsillectomy 1990 right shoulder labrum 2005 right shoulder labrum 2007 L5-S1 fusion 2010 L5- S1 fusion 2011 L5- S1 fusion 2013 appendectomy kidney stone implanted med tronic pain pump (dilaudid and bupivacaine) 2017 implanted medtronic pain pump 2022
== END 2025-06-07 13:27 | disposition home or self-care (01) ==
LOC: HO.PMC 12:48
PROVIDERS: PCP Family Medicine Sports Medicine; Visit Provider Anesthesiology
DX: M54.12 Radiculopathy, cervical region (principal); M50.30 Other cervical disc degeneration, unspecified cervical region; M47.812 Spondylosis without myelopathy or radiculopathy, cervical region; Z96.89 Presence of other specified functional implants; Z45.1 Encounter for adjustment and management of infusion pump; G89.4 Chronic pain syndrome; M96.1 Postlaminectomy syndrome, not elsewhere classified; Z79.891 Long term (current) use of opiate analgesic
CPT/HCPCS: 95991; 99213

== ENCOUNTER → 2025-06-07 12:47 | Outpatient (BNVA) | payer OTHER, SELFPAY | PROVIDERS: PCP Family Medicine Sports Medicine; Visit Provider Anesthesiology | DX: M54.12 Radiculopathy, cervical region (principal); M50.30 Other cervical disc degeneration, unspecified cervical region; M47.812 Spondylosis without myelopathy or radiculopathy, cervical region; Z96.89 Presence of other specified functional implants; G89.4 Chronic pain syndrome; M96.1 Postlaminectomy syndrome, not elsewhere classified; Z79.891 Long term (current) use of opiate analgesic | CPT/HCPCS: 99212 ==

== ENCOUNTER 2025-08-17 15:04 | Outpatient (AMB) | payer OTHER, SELFPAY ==
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
[2025-08-17 15:10] VITALS: BP 141/88; PULSE 81; RESP 18; O2SAT 98
--- OUTSIDE RECORDS SUMMARY | 2025-08-17 16:40 | XMS_ITS | Clinical Summary ---
Author Organization [facility] Address [address] [place] [address] Care Team Providers Care Media Relations Intern Name Role Phone Dale Baptiste DO Primary [...] to type 2 diabetes mellitus 0 05/27/2022 Closed fracture of left distal fibula [...] 85 06/18/2022 8:59 AM EDT Temperature 36.4 C (97.5 F) 06/10/2022 6:39 PM EDT Respiratory Rate 16 06/10/2022 6:39 PM EDT [...] 2022 Basic Metabolic Panel 06/05/2023 06/05/2022, 022 Alcohol/Substance Use Screening 11/30/2024 Depression Screening and Follow-Up 11/30/2024 Social Drivers of Health Annual Screening 11/30/2024 COVID-19 Vaccine (2 - season) 2025 Influenza Vaccine (#1) 2025 09/12/2023, 2020 RSV Vaccine (60+ years old a nd patients) (1 - 1-dose 75+ series) 2047 Medical Devices Implanted Type Area State Inspector Device Identifier Shelf Expiration Date Model / Serial / Lot Plate Tubular1/3 Stainless Steel 8 Hole 96mm [place] - [id number] Implanted:Qty: 1 on 10/25/2021 by David Kelsey MD at [facility] Plate Left: Ankle [employer] 2179.1308 / / Screw Bone Non-Locking Stainless Steel 3.9fxc49mt - [id number] Implanted:Qty: 1 on 10/25/2021 by David Kelsey MD at [facility] Screw Left: Ankle [employer] 2179.3032 / / Screw Non-Locking Stainless Steel 3.2ujj74ce - [id number] Implanted:Qty: 4 on 10/25/2021 by David Kelsey MD at [facility] Screw Left[facility] 2179.3016 / / Screw Bone Nonlocking Stainless Steel 3.1obs91az [place] - [id number] Implanted:Qty: 1 on 10/25/2021 by David Kelsey MD at [facility] Screw Left: [facility] 2179.3018 / / Screw Non-Locking Stainless Steel [id number] - [id number] Implanted:Qty: 1 on 10/25/2021 by David Kelsey MD at [facility] Screw Left: Ankle [facility] 2179.3022 / / Stent Ureteral Firm Hydroplus Coating 6fr 26cm Percuflex Plus - [id number] Implanted:Qty: 1 on 06/10/2022 by Isaac Roe MD at [facility] Stent Right: Ureter [employer] 03/09/2025 [id number] / / [id number] Procedures * Due to [place] law, this organization might not be sharing negative HIV tests. Procedure Name Priority Date/Time Associated Diagnosis Comments BASIC METABOLIC PANEL Routine 06/05/2022 8:54 AM EDT Pre-op evaluation Nephrolithiasis from Last 3 Months or Most Recently Relevant to Health Maintenance Results * Due to [place] law, this organization might not be sharing negative HIV tests. * (ABNORMAL) Basic Metabolic Panel (06/05/2022 8:54 AM EDT) NA 134(L) 135 - 145 mmol/L 06/05/2022 9:35 AM EDT [facility] K 3.7 3.5 - 5.3 mmol/L 06/05/2022 9:35 AM EDT [facility] Cl 100 97 - 110 mmol/L 06/05/2022 9:35 AM EDT [facility] CO2 27 24 - 32 mmol/L 06/05/2022 9:35 AM EDT [facility] BUN 12 7 - 23 mg/dL 06/05/2022 9:35 AM EDT [facility] Creatinine 0.72 0.60 - 1.30 mg/dL 06/05/2022 9:35 AM EDT [facility] Glucose 178(H) 70 - 99 mg/dL 06/05/2022 9:35 AM EDT [facility] Calcium 9.7 8.7 - 10.7 mg/dL 06/05/2022 9:35 AM EDT [facility] Anion Gap 7 5 - 15 06/05/2022 9:35 AM EDT [facility] eGFR >90 >=90 mL/min/1. 73m2 06/05/2022 9:35 AM EDT [facility] Comment: Estimated Glomerular [...] Rice NP LAB BLOOD ORDERABLES Final Result [facility] [address] [phone], from Last 3 Months or Most Recently Relevant to Health Maintenance Insurance [employer] HMO/POS Advance Directives * Full Code (Latest Code Status on File) Date Activated Date Inactivated Comments 06/10/2022 12:00 PM 06/10/2022 9:33 PM * Full Code Date Activated Date Inactivated Comments 10/25/2021 6:46 AM 10/25/2021 2:17 PM Care Teams Media Relations Intern Relationship Specialty Start Date End Date Dale Baptiste DO [address] [place] [address] PCP - General Family Medicine 10/21/21
--- OUTSIDE RECORDS SUMMARY | 2025-08-17 16:40 | XMS_ITS | Encounter Summary ---
Author Organization [facility] Address [address] [place] [address] Care Team Providers Care Oriental Rug Stretcher Name Role Phone Dale Lerma DO Primary Care Provider [phone] Reason for Visit * Reason Comments Appointment Encounter Details Date Type Department Care Team (Late st Contact Info) Description 03/14/2024 Telephone [facility] [address] [place] [phone] Dale Lerma DO [address] [address] Appointment Social History Tobacco Use Types Packs/Day [...] on filedocumented in this encounter Care Teams Oriental Rug Stretcher Relationship Specialty Start Date End Date Dale Lerma DO [address] [address] PCP - General Family Medicine 11/12/23 documented as of this encounter
--- OUTSIDE RECORDS SUMMARY | 2025-08-17 16:40 | XMS_ITS | Clinical Summary ---
Author Organization [facility] Address [address] [place] [address] Care Team Providers Care Semiconductor Wafers Tester Name Role Phone Dale Lerma DO Primary Care Provider [phone] Allergies Active Allergy Reactions Criticality Noted Date [...] Zoster (Shingles) Vaccine (1 of 2) 2022 Hemoglobin A1C 11/22/2024 05/23/2024, 05/05/2024 Creatinine with GFR 05/05/2025 05/05/2024, Influenza Vaccine 06/30/2025 09/19/2023, , 08/30/2022, Additional history exists COVID-19 Vaccine (4 - 2024-2 6 season) 2025 09/19/2023, 09/13/2022, 08/26/2021 Medical Devices Implanted Type Area Auction Assistant Device Identifier Shelf Expiration Date Model / Serial / Lot Ar-9400-Sbk Implant Fixation Eclps Speedscap Sterl Lf Disp - [id number] Implanted:Qt y: 1 on 05/26/2024 by Az Schafer MD at [facility] Right: Shoulder UNKNOWN 09/29/2028 AR-9400- SBK / / [id number] [place] Suture 4.75mm 2 Swivelock C Fibertak Tgtl 2 Load - [id number] Implanted:Qt y: 1 on 06/06/2024 by Az Schafer MD at [facility] Right: Shoulder [employer] 09/29/2024 AR-2324B CT-2 / / [id number]- Cement Bone Smpx Speedset 20ml 40gm Fd Anbtc Sterl Lf Disp - [id number] Implanted:Qt y: 1 on 05/26/2024 by Az Schafer MD at [facility] Right: Shoulder [employer] GAVIN [id number] 08/29/2025 6192-1-0 01 / / [id number] 6191- Cement Bone Smpx Speedset 20ml 40gm Fd Anbtc Sterl Lf Disp - [id number] Implanted:Qt y: 1 on 05/26/2024 by Az Schafer MD at [facility] Right: Shoulder [employer] GAVIN [id number] 08/29/2025 6192-1-0 01 / / [id number] 6191- Cement Bone Smpx Speedset 20ml 40gm Fd Anbtc Sterl Lf Disp - [id number] Implanted:Qt y: 1 on 05/26/2024 by Az Schafer MD at [facility] Right: Shoulder [employer] GAVIN [id number] 08/29/2025 6192-1-0 01 / / [id number] 6191- Cement Bone Smpx Speedset 20ml 40gm Fd Anbtc Sterl Lf Disp - [id number] Implanted:Qt y: 1 on 05/26/2024 by Az Schafer MD at [facility] Right: Shoulder [employer] GAVIN [id number] 08/29/2025 6192-1-0 01 / / [id number] -06-03 [place] Vaultlock Large Glenoid Implant Implanted:Qt y: 1 on 05/26/2024 by Az Schafer MD at [facility] Prosthesis Right: Shoulder UNKNOWN 07/30/2026 AR-9106- 03 / / [id number]-9349-18 Eclipse Humeral Head [id number] Implanted:Qt y: 1 on 05/26/2024 by Az Schafer MD at [facility]sthesis Right: Shoulder UNKNOWN 10/29/2027 AR-9349- 18 / / [id number] Eclipse Truunion Slotted Tps Cap 47mm Implanted:Qt y: 1 on 05/26/2024 by Az Schafer MD at [facility]sthesis Right: Shoulder UNKNOWN 09/29/2028 AR-9301- 47CPC / / [id number] -01-03 Eclipse Large Cage Screw Implanted:Qt y: 1 on 05/26/2024 by Az Schafer MD at [facility] Screw Right: Shoulder UNKNOWN 09/29/2025 AR-9301- 03 / / [id number] Procedures Procedure Name Priority Date/Time Associated Diagnosis Comments HEMOGLOBIN A1C Routine 05/23/2024 7:33 AM EDT BASIC METABOLIC PANEL Routine 05/05/2024 8:25 AM EDT Preoperative examination from Last 3 Months or Most Recently Relevant to Health Maintenance Results * (ABNORMAL) Hemoglobin A1C (05/23/2024 7:33 AM EDT) Hemoglobin A1C 7.5(H) <5.7 % of total Hgb [facility] Comment: For someone without known diabetes, a [...] change in test platforms from the Sepulveda Ladle Puller to the Opal lucinda c503 may have shifted HbA1c results compared to historical results. Based on laboratory validation testing conducted at [facility], the Opal platform relative to the Sepulveda [...] 7:33 AM EDT 05/23/2024 7:33 AM EDT [facility] - 05/23/2024 5:37 PM EDT FASTING:YES FASTING: YES Ordered by External Provider. [id number], [place] SCHAFER, us External Provider LAB BLOOD ORDERABLES Final Result Code [facility] [address] [place] [phone] * (ABNORMAL) Basic Metabolic Panel (05/05/2024 8:25 AM EDT) Glucose 172(H) 65 - 99 mg/dL 05/05/2024 9:02 AM T [facility] Comment:Fasting: <100 mg/dL, Non-Fasting: <200 mg/dL (ADA 2004) Blood Urea Nitrogen (BUN) 11 8 - 21 mg/dL 05/05/2024 9:02 AM T [facility] Creatinine 0.7 0.5 - 1.3 mg/dL [facility]/05[facility]24 [facility]90 >59 05/05/2024 9:02 AM T [facility] Comment:CKD-EPI (2020) in mL /min/1.73 sq meters. Sodium 139 136 - 145 mmol/L 05/05/2024 9:02 AM EDT [facility] Potassium 4.0 3.4 - 5.3 mmol/L 05/05/2024 9:02 AM EDT [facility] Chloride 101 98 - 107 mmol/L 05/05/2024 9:02 AM EDT [facility] CO2 27 22 - 33 mmol/L 05/05/2024 9:02 AM EDT [facility] Anion Gap 11 05/05/2024 9:02 AM EDT [facility] Calcium 9.6 8.7 - 10.5 mg/dL 05/05/2024 9:02 AM EDT [facility] BUN/Creatinine Ratio 16 10.0 - 25.0 Ratio 05/05/2024 9:02 AM EDT [facility] Blood (Plasma/Serum) 05/05/2024 8:25 AM EDT 05/05/2024 8:34 AM EDT Wendy Valenzuela ECG TECHNICIAN LAB BLOOD ORDERABLES Final Result Performing Organization Address City/State/[facility] Co de Phone Number [facility] [address] [place] [address], [facility] [address] [place] [address] from Last 3 Months or Most Recently Relevant to Health Maintenance Insurance [facility] Advance Directives * Full Code (Latest Code Status on File) Date Activated Date Inactivated Comments 05/26/2024 5:13 PM Care Teams Semiconductor Wafers Tester Relationship Specialty Start Date End Date Dale Lerma DO [address] [address] PCP - General Family Medicine 11/12/23
--- OUTSIDE RECORDS SUMMARY | 2025-08-17 16:40 | XMS_ITS | Encounter Summary ---
Author Organization [facility] Address [address] [place] [phone] Care Team Providers Care Cloth Hauler Name Role Phone Referring, No Primary Care Provider Unavailabl e Encounter Details Date Type Department Care Team (Late st Contact Info) Description 03/31/2024 Abstract [facility] at [address] [facility], [facility] [address] [place] [address] Bony Anderson MD [address] [place] [address] [address] [place] [id number] Social History Tobacco Use Types Packs/Day Years [...] on filedocumented in this encounter Care Teams Cloth Hauler Relationship Specialty Start Date End Date Referring, No PCP - General 10/08/24 documented as of this encounter
--- OUTSIDE RECORDS SUMMARY | 2025-08-17 16:40 | XMS_ITS | Clinical Summary ---
Author Organization [address] Address [address] [place] [address] Phone Care Team Providers Care Manager Business Intelligence Name Role Phone Referring, No Primary Care Provider Unavailabl e Allergies Active Allergy Reactions Criticality Noted Date Comments Canagliflozin Unknown 03/15/2021 Penicillins Anaphylaxis High 08/19/2023 Sitagliptin Phosphate Unknown 08/19/2023 Medications atenoloL (TENORMIN) 50 mg tablet Take 1 tablet (50 mg total) by mouth daily. Active omeprazole (PRILOSEC) 20 mg capsule Take 1 capsule (20 mg total) by mouth daily. 07/13/20 23 Active furosemide (LASIX) 20 mg tablet TAKE 1 TABLET BY MOUTH EVERY DAY FOR 90 DAYS Active MOUNJARO 7.5 mg/0.5 mL PnIj INJECT 7.5 MG SUBCUTANEOUSLY WEEKLY 08/04/20 23 Active HUMALOG U-100 INSULIN 100 unit/mL vial PLEASE SEE ATTACHED FOR DETAILED DIRECTIONS 03/13/20 23 Active traZODone (DESYREL) 150 mg tablet TAKE 1 TABLET BY MOUTH EVERY DAY AT BEDTIME FOR 90 DAYS Active DEXCOM G6 SENSOR device 10/12/20 23 Active TRESIBA FLEXTOUCH U-100 INSULIN 100 unit/mL (3 mL) pen Pt is using 150Unit 09/02/20 23 Active albuterol sulfate 90 mcg/actuation HFA aerosol inhaler INHALE 2 PUFFS BY MOUTH EVERY 4 HOURS NEEDED FOR 7 DAYS 04/19/20 23 Active OZEMPIC 1 mg/dose (4 mg/3 mL) pen injector INJECT 1 MG SUBCUTANEOUSLY EVERY WEEK Active insulin (LISPRO, GLARGINE) 03/03/20 24 Active sertraline (ZOLOFT) 100 mg tabletIndication s:Depression, unspecified depression type Take 2 tablets (200 mg total) by mouth daily. 30 tablet 09/03/20 24 Active DEXCOM G6 TRANSMITTER deviceIndication s:Type 2 diabetes mellitus without complication, with long-term current use of insulin Use as directed 3 each 09/03/20 24 Active LANTUS SOLOSTAR U-100 INSULIN 100 UNIT/ML (3 ML) SUBCUTANEOUS PENIndications:T ype 2 diabetes mellitus without complication, with long-term current use of insulin 75 units twice a day 15 mL 10/08/20 24 Active Active Problems No known active problems Immunizations Immunization Administration Dates Next Due Influenza, injectable, quadrivalent, preservativ e free 09/19/2023 Social History Tobacco Use Types Packs/Day Years Used Date Smoking Tobacco: Never Tobacco Cessation:Counseling Given: Not Answered Sex and Gender Information Value Date Recorded Sex Assigned at Not on file Legal Sex Male 9:57 AM EST Gender Identity Not on file Sexual Orientation Not on file Last Filed Vital Signs Vital Sign Reading Time Taken Comments Blood Pressure 126/83 03/30/2024 1:36 PM EDT Pulse 74 03/30/2024 1:36 PM EDT Temperature 36.4 C (97.5 F) 09/25/2023 8:09 PM EDT Respiratory Rate 16 09/25/2023 8:09 PM EDT Oxygen Saturation 99% 03/30/2024 1:36 PM EDT Inhaled Oxygen Concentration - - Weight 118.8 kg (262 lb) 07/08/2024 10:37 AM EDT Height 175.3 cm (5' 9 ) 07/08/2024 10:37 AM EDT Body Mass Index 38.69 07/08/2024 10:37 AM EDT Plan of Treatment Health Maintenance Due Date Last Done Comments HIV screening 1985 Hepatitis C screening 1990 Pneumococcal Vaccine (50+ years) (1 of 2 - PCV) 1991 Tetanus adult (Td q 10,TDAP once) 1992 Lipid disorder screening 2012 Colon cancer screening, Colonoscopy 2017 Diabetes screening 2017 Shingles vaccine (Shingrix) (1 of 2 - Shingrix (RZV) 2 Dose Standard Series) 2022 Covid-19 vaccine series ( season) 2025 09/19/2023, 08/26/2021 Influenza vaccine 07/31/2025 09/19/2023, 08/30/2022, 10/17/2021 RSV Immunization (1 - 1-dose 75+ series) 2047 Meningococcal B Vaccine Aged Out No l onger eligible based on patient's age to complete this topic Meningococcal Vaccine Aged Out No prashant alvin eligible based on patient's age to complete this topic [place] Care Teams Manager Business Intelligence Relationship Specialty Start Date End Date Referring, No PCP - General 10/08/24
--- OUTSIDE RECORDS SUMMARY | 2025-08-17 16:40 | XMS_ITS | Clinical Summary ---
Author Organization [facility] Address [address] [place] [address] Care Team Providers Care Pressing Machine Tender Name Role Phone Ramon Russell DO Primary Care Provider [phone] Social History Tobacco Use Types Packs/Day Years Used Date Smoking Tobacco: Never Assessed Sex and Gender Information Value Date Recorded Sex Assigned at Not on file Legal Sex Male 8:21 AM EST Gender Identity Not on file Sexual Orientation Not on file Plan of Treatment [place] [address] [facility] [place] [phone] [employer] Care Teams Pressing Machine Tender Relationship Specialty Start Date End Date Ramon Russell DO [address] [place] [address] PCP - General Family Medicine 11/24/24
--- OUTSIDE RECORDS SUMMARY | 2025-08-17 16:40 | XMS_ITS | Encounter Summary ---
Author Organization [facility] Address [address] [place] [address] Care Team Providers Care Vending Machine Filler Name Role Phone Dale Baptiste DO Primary Care Provide r Encounter Details Date Type Department Care Team (Late st Contact Info) Description 02/27/[address] [facility] Xray [address] [place] [address] Erika Silvio [address] [place] [address] Social History Tobacco Use Types Packs/Day Years [...] on filedocumented in this encounter Care Teams Vending Machine Filler Relationship Specialty Start Date End Date Dale Baptiste DO [address] [facility] [address] [place] [address] PCP - General Family Medicine 10/21/21 documented as of this encounter
--- OUTSIDE RECORDS SUMMARY | 2025-08-17 16:40 | XMS_ITS | Clinical Summary ---
Author Organization [facility] Address [address] [place] [address] Care Team Providers Care Hardwood Flooring Specialist Name Role Phone Unavailable Primary Care Provider [...] of 2) 2022 COVID-19 Vaccine (3 - 2024-2 6 season) 2025 09/19/2023, 08/26/2021 Influenza (#1) 2025 09/19/2023, 08/30/2022, 10/17/2021 HPV Vaccine (No Doses Required) Completed Hep A Aged Out No longer eligi ble based on patient's age to complete this topic Hib Aged Out No longer eligi ble based on patient's age to complete this topic Meningococcal ACWY Aged Out No longer eligible based on patient's age to complete this topic Insurance [employer]
== END 2025-08-17 15:37 | disposition home or self-care (01) ==
LOC: HO.PMC 15:05
PROVIDERS: PCP Family Medicine Sports Medicine; Visit Provider Anesthesiology
DX: M54.12 Radiculopathy, cervical region (principal); M50.30 Other cervical disc degeneration, unspecified cervical region; M47.812 Spondylosis without myelopathy or radiculopathy, cervical region; Z96.89 Presence of other specified functional implants; G89.4 Chronic pain syndrome; M96.1 Postlaminectomy syndrome, not elsewhere classified; Z79.891 Long term (current) use of opiate analgesic
CPT/HCPCS: 99213

== ENCOUNTER → 2025-08-17 15:04 | Outpatient (BNVA) | payer OTHER, SELFPAY | PROVIDERS: PCP Family Medicine Sports Medicine; Visit Provider Anesthesiology | DX: Z45.89 Encounter for adjustment and management of other implanted devices (principal); M54.12 Radiculopathy, cervical region; M50.30 Other cervical disc degeneration, unspecified cervical region; M47.812 Spondylosis without myelopathy or radiculopathy, cervical region; M96.1 Postlaminectomy syndrome, not elsewhere classified; G89.4 Chronic pain syndrome; Z79.891 Long term (current) use of opiate analgesic; Z96.89 Presence of other specified functional implants | CPT/HCPCS: 99212 ==

== ENCOUNTER 2025-08-31 14:38 | Outpatient (AMB) | payer OTHER, SELFPAY ==
[2025-08-31 14:52] VITALS: BP 140/69; PULSE 93; RESP 18; O2SAT 98
--- NOTE | 2025-08-31 14:52 | A.OFFVIS_ITS ---
Vital Signs 08/31/25 14:52 Weight 255 lb BP 140/69 H Blood Pressure Location Lt brachial Position Sitting Respiration 18 Pulse 93 Pulse Source Pulse Oximeter Pulse Oximetry (%) 98 Oxygen Delivery Method Room Air Intake Visit Reasons: Pain pump refill Allergies penicillin V Allergy (Severe, Verified 08/31/25 14:52) anaphylaxis sitagliptin (From Januvia) Allergy (Severe, Verified 08/31/25 14:52) Anaphylaxis [facility] Medical History (Updated 04/25/25 @ 12:16 by Monica Rai APRN, METAL MIXER) FERNANDO on CPAP Elevated cholesterol Diabetes GERD (gastroesophageal reflux disease) HTN (hypertension) Implantable intrathecal infusion pump present [facility] (current) use of opiate analgesic Chronic pain syndrome Postlaminectomy syndrome Surgical History (Updated 11/03/22 @ 11:51 by Arlette Vergara RN) Hx of appendectomy History of back surgery History of surgery Social History Patient Tobacco Use Status: Never used Tobacco Physical Exam Vital Signs: Last Vital Signs Pulse 93 08/31/25 14:52 Resp 18 08/31/25 14:52 BP 140/69 H 08/31/25 14:52 Pulse Ox 98 08/31/25 14:52 Oxygen Delivery Method Room Air 08/31/25 14:52 Assessment & Plan Assessment & Plan (1) Radiculopathy of cervical region: Code(s): M54.12 - Radiculopathy, cervical region Category: Medical (2) Degeneration, intervertebral disc, cervical: Code(s): M50.30 - Other cervical disc degeneration, unspecified cervical region Category: Medical (3) Spondylosis of cervical joint without myelopathy: Code(s): M47.812 - Spondylosis without myelopathy or radiculopathy, cervical region Category: Medical (4) Implantable intrathecal infusion pump present: Comment: last refill 07/07/22 Code(s): Z96.89 - Presence of other specified functional implants Category: Medical (5) Chronic pain syndrome: Code(s): G89.4 - Chronic pain syndrome Category: Medical (6) Postlaminectomy syndrome: Code(s): M96.1 - Postlaminectomy syndrome, not elsewhere classified Category: Medical (7) 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 ?The pump was interrogated and the residual amount of fluid was found to be?0 mL. HE WAS POSITIONED supine on the bed AND THE AREA OF THE INTRATHECAL PUMP WAS PREPPED WITH CHLORAPREP. The fenestrated drape was sterilely applied over the area of the pump. Sterile gloves were worn and of the aspiration system was assembled containing 2 in 22 gauge noncoring needle, the needle was connected to extension tubing which was connected to the 20 cc sterile syringe. The pain pump was palpated under the skin in the patient's left abdominal area. The needle was inserted through the skin and the central plug of the pain pump and fluid was aspirated. The clear fluid was going into the syringe the total amount of the fluid was 1.0 mL .. After that a new batch? of medication was obtained which was containing dilaudid in concentration 4 mg/ml and bupivacaine 40 mg per ml. The admixture was made in two 20 cc syringes prepared by [facility] compounding pharmacy. The syringe was connected to the bacterial filter, and then connected to the extension tubing. After that the medication in the syringe was slowly instilled into the pump with aspirations at 35, 25, 15 and 5 cc villalba and good returns of the medication back to the syringe without any changes in collar indicating presence of blood or interstitial fluid.. after that the needle was removed and sterile dressing was applied in the for of the band-aid.. 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
--- OUTSIDE RECORDS SUMMARY | 2025-08-31 16:12 | XMS_ITS | Encounter Summary ---
Author Organization [facility] Address [address] [place] [address] Care Team Providers Care Bicycle Messenger Name Role Phone Dale Baptiste DO Primary Care Provide r Encounter Details Date Type Department Care Team (Late st Contact Info) Description 02/27/[address] [facility] Xray [address] [place] [address] Erika Silvio [address] [place] [address] Social History Tobacco Use Types Packs/Day Years [...] on filedocumented in this encounter Care Teams Bicycle Messenger Relationship Specialty Start Date End Date Dale Baptiste DO [address] [facility] [address] [place] [address] PCP - General Family Medicine 10/21/21 documented as of this encounter
--- OUTSIDE RECORDS SUMMARY | 2025-08-31 16:12 | XMS_ITS | Encounter Summary ---
Author Organization [facility] Address [address] [place] [address] Care Team Providers Care Tester/Lift Trucker Name Role Phone Dale Lerma DO Primary Care Provider [phone] Reason for Visit * Reason Comments Appointment Encounter Details Date Type Department Care Team (Late st Contact Info) Description 03/14/2024 Telephone [facility] [address] [place] [phone] Dale Lerma DO [address] [address] Appointment Social History Tobacco Use Types Packs/Day [...] on filedocumented in this encounter Care Teams Tester/Lift Trucker Relationship Specialty Start Date End Date Dale Lerma DO [address] [address] PCP - General Family Medicine 11/12/23 documented as of this encounter
--- OUTSIDE RECORDS SUMMARY | 2025-08-31 16:12 | XMS_ITS | Clinical Summary ---
Author Organization [facility] Address [address] [place] [address] Care Team Providers Care Legal Entity Controller Name Role Phone Unavailable Primary Care Provider [...]
--- OUTSIDE RECORDS SUMMARY | 2025-08-31 16:12 | XMS_ITS | Clinical Summary ---
Author Organization [facility] Address [address] [place] [address] Care Team Providers Care Chemical Milling Processor Name Role Phone Ramon Russell DO Primary Care Provider [phone] Social History Tobacco Use Types Packs/Day Years Used Date Smoking Tobacco: Never Assessed Sex and Gender Information Value Date Recorded Sex Assigned at Not on file Legal Sex Male 8:21 AM EST Gender Identity Not on file Sexual Orientation Not on file Plan of Treatment [place] [id number] [facility] [place] [phone] [employer] Care Teams Chemical Milling Processor Relationship Specialty Start Date End Date Ramon Russell DO [address] [place] [address] PCP - General Family Medicine 11/24/24
--- OUTSIDE RECORDS SUMMARY | 2025-08-31 16:12 | XMS_ITS | Clinical Summary ---
Author Organization [address] Address [address] [place] [address] Phone Care Team Providers Care Lead Mechanic Name Role Phone Referring, No Primary Care [...] with long-term current use of insulin (HC CODE) Use as directed 3 each 09/03/20 24 Active LANTUS SOLOSTAR U-100 INSULIN 100 UNIT/ML (3 ML) SUBCUTANEOUS PENIndications:T ype 2 diabetes mellitus without complication, with long-term current use of insulin (HC CODE) 75 units twice a day 15 mL [...] Shingrix (RZV) 2 Dose Standard Series) 2022 Influenza vaccine 06/30/2025 09/19/2023, 08/30/2022, 10/17/2021 Covid-19 vaccine series (3 - 2024- season) 2025 09/19/2023, 08/26/2021 RSV Immunization (1 - 1-dose 75+ series) 2047 Meningococcal B Vaccine Aged Out No l onger eligible based on patient's age to complete this topic Meningococcal Vaccine Aged Out No prashatn alvin eligible based on patient's age to complete this topic [place] Care Teams Lead Mechanic Relationship Specialty Start Date End Date Referring, No PCP - General 10/08/24
--- OUTSIDE RECORDS SUMMARY | 2025-08-31 16:12 | XMS_ITS | Continuity of Care Document ---
Author Organization [facility] Address [address] [place] [address] Phone [phone] Care Team Providers Care Manager Star Name Role Phone Ramon Russell D.O. Care [...] - Multiple fragments of tubular adenoma. SS/kh ([id number]) MACROSCOPIC Jar and requisition labeled [id number], Cooper Jodijae, Specimen transverse colon polyp. Received in formalin are multiple kaur tissue fragments ranging in size from 0.1 cm to 0.8 cm. TS/1. Time to fixation 0 hours, duration of fixation 10 - 18 hours. zc MICROSCOPIC A) Performed. Jonathan Wilson MD Pathologist Electronically Signed on 04/13/2025 at 11:42 AM CPT Codes: 41077 ICD Codes: D12.3 Assessments Date Code Description Provider 04/11/2025 Z12.11 Encounter for sc reening for malignant neoplasm of colon Nikhil Marinelli, DO 04/11/2025 D12.3 Benign neoplasm of transvers e colon Nikhil Marinelli, DO 04/11/2025 K64.8 Other hemorrhoids Nikhil Marinelli, Plan of Treatment No Information Available
--- OUTSIDE RECORDS SUMMARY | 2025-08-31 16:12 | XMS_ITS | Clinical Summary ---
Author Organization [facility] Address [address] [place] [address] Care Team Providers Care Waste Water Operator Name Role Phone Dale Lerma DO Primary Care Provider [phone] Allergies Active Allergy Reactions Criticality Noted Date [...] 09/13/2022, 08/26/2021 Medical Devices Implanted Type Area Medical Doctor Md Device Identifier Shelf Expiration Date Model / Serial / Lot Ar-9400-Sbk Implant Fixation Eclps Speedscap Sterl Lf Disp - [id number] Implanted:Qt y: 1 on 05/26/2024 by Az Schafer MD at [facility] [place] Right: Shoulder UNKNOWN 09/29/2028 AR-9400- SBK / / [id number] [place] Suture 4.75mm 2 Swivelock C Fibertak Tgtl 2 Load - [id number] Implanted:Qt y: 1 on 06/06/2024 by Az Schafer MD at [facility] Right: Shoulder [employer] 09/29/20[address] AR-[address] CT-2 / / [id number]- Cement Bone Smpx Speedset 20ml 40gm Fd Anbtc Sterl Lf Disp - [id number] Implanted:Qt y: 1 on 05/26/2024 by Az Schafer MD at [facility] [place] Right: Shoulder [employer] [id number] 08/29/2025 6192-1-0 01 / / [id number] 6191- Cement Bone Smpx Speedset 20ml 40gm Fd Anbtc Sterl Lf Disp - [id number] Implanted:Qt y: 1 on 05/26/2024 by Az Schafer MD at [facility] [place] Right: Shoulder [employer] [id number] 08/29/2025 6192-1-0 01 / / [id number] 6191- Cement Bone Smpx Speedset 20ml 40gm Fd Anbtc Sterl Lf Disp - [id number] Implanted:Qt y: 1 on 05/26/2024 by Az Schafer MD at [facility] [place] Right: Shoulder [employer] [id number] 08/29/2025 6192-1-0 01 / / [id number] 6191- Cement Bone Smpx Speedset 20ml 40gm Fd Anbtc Sterl Lf Disp - [id number] Implanted:Qt y: 1 on 05/26/2024 by Az Schafer MD at [facility] [place] Right: Shoulder [employer] [id number] 08/29/2025 6192-1-0 01 / / [id number] -06-03 [place] Vaultlock Large Glenoid Implant Implanted:Qt y: 1 on 05/26/2024 by Az Schafer MD at [facility] [employer] Right: Shoulder UNKNOWN 07/30/2026 AR-9106- 03 / / [id number] Eclipse Humeral Head [id number] Implanted:Qt y: 1 on 05/26/2024 by Az Schafer MD at [facility] Prosthesis Right: Shoulder UNKNOWN 10/29/2027 AR-9349- 18 / / [id number] Eclipse Truunion Slotted Tps Cap 47mm Implanted:Qt y: 1 on 05/26/2024 by Az Schafer MD at [facility] Prosthesis Right: Shoulder UNKNOWN 09/29/2028 AR-9301- 47CPC / / [id number] -01-03 Eclipse Large Cage Screw Implanted:Qt y: 1 on 05/26/2024 by Az Schafer MD at [facility] Screw Right: Shoulder UNKNOWN 09/29/2025 AR-9301- 03 / / [id number] Procedures Procedure Name Priority Date/Time Associated Diagnosis Comments HEMOGLOBIN A1C Routine 05/23/2024 7:33 AM EDT BASIC METABOLIC PANEL Routine 05/05/2024 8:25 AM EDT Preoperative examination from Last 3 Months or Most Recently Relevant to Health Maintenance Results * (ABNORMAL) Hemoglobin A1C (05/23/2024 7:33 AM EDT) Hemoglobin A1C 7.5(H) <5.7 % of total Hgb [facility] Comment: For someone without known diabetes, a [...] change in test platforms from the [employer] Sales Account Representative to the Opal lucinda c503 may have shifted HbA1c results compared to historical results. Based on laboratory validation testing conducted at [facility], the Opal platform relative to the Sepulveda [...] 7:33 AM EDT 05/23/2024 7:33 AM EDT [facility] - 05/23/2024 5:37 PM EDT FASTING:YES FASTING: YES Ordered by External Provider. [id number], [place] SCHAFER, us External Provider LAB BLOOD ORDERABLES Final Result [facility] [address] [place] [phone] * (ABNORMAL) Basic Metabolic Panel (05/05/2024 8:25 AM EDT) Glucose 172(H) 65 - 99 mg/dL 05/05/2024 9:02 AM T [facility] Comment:Fasting: <100 mg/dL, Non-Fasting: <200 mg/dL (ADA 2004) Blood Urea Nitrogen (BUN) 11 8 - 21 mg/dL 05/05/2024 9:02 AM T [facility] Creatinine 0.7 0.5 - 1.3 mg/dL [facility]/05[facility]24 [facility]90 >59 05/05/2024 9:02 AM T [facility] Comment:CKD-EPI (2020) in mL /min/1.73 sq meters. Sodium 139 136 - 145 mmol/L 05/05/2024 9:02 AM EDT [facility] Potassium 4.0 3.4 - 5.3 mmol/L 05/05/2024 9:02 AM EDT [facility] Chloride 101 98 - 107 mmol/L 05/05/2024 9:02 AM EDT [facility] CO2 27 22 - 33 mmol/L 05/05/2024 9:02 AM EDT [facility] Anion Gap 11 05/05/2024 9:02 AM EDT [facility] Calcium 9.6 8.7 - 10.5 mg/dL 05/05/2024 9:02 AM EDT [facility] BUN/Creatinine Ratio 16 10.0 - 25.0 Ratio 05/05/2024 9:02 AM EDT [facility] Blood (Plasma/Serum) 05/05/2024 8:25 AM EDT 05/05/2024 8:34 AM EDT Wendy Valenzuela ROLL TENDER LAB BLOOD ORDERABLES Final Result Performing Organization Address City/State/RUST Co de Phone Number [facility] [address] [place] [address], [facility] [address] [place] [address] from Last 3 Months or Most Recently Relevant to Health Maintenance Insurance [facility] Advance Directives * Full Code (Latest Code Status on File) Date Activated Date Inactivated Comments 05/26/2024 5:13 PM Care Teams Waste Water Operator Relationship Specialty Start Date End Date Dale Lerma DO [address] [address] PCP - General Family Medicine 11/12/23
--- OUTSIDE RECORDS SUMMARY | 2025-08-31 16:12 | XMS_ITS | Encounter Summary ---
Author Organization [facility] Address [address] [place] [phone] Care Team Providers Care Repair Manager Name Role Phone Referring, No Primary Care Provider Unavailabl e Encounter Details Date Type Department Care Team (Late st Contact Info) Description 03/31/2024 Abstract [facility] at [address] [facility], [facility] [address] [place] [address] Bony Anderson MD [address] [place] [address] [address] [place] [phone] Social History Tobacco Use Types Packs/Day Years [...] on filedocumented in this encounter Care Teams Repair Manager Relationship Specialty Start Date End Date Referring, No PCP - General 10/08/24 documented as of this encounter
--- OUTSIDE RECORDS SUMMARY | 2025-08-31 16:12 | XMS_ITS | Clinical Summary ---
Author Organization [facility] Address [address] [place] [address] Care Team Providers Care Service Center Appraiser Name Role Phone Dale Baptiste DO Primary [...] series) 2047 Medical Devices Implanted Type Area Bartenders Device Identifier Shelf Expiration Date Model / Serial / Lot Plate Tubular1/3 Stainless Steel 8 Hole 96mm [place] - [id number] Implanted:Qty: 1 on 10/25/2021 by David Kelsey MD at [facility] Plate Left: Ankle [employer] 2179.1308 / / Screw Bone Non-Locking Stainless Steel 3.8ife60ss - [id number] Implanted:Qty: 1 on 10/25/2021 by David Kelsey MD at [facility] Screw Left: Ankle [employer] 2179.3032 / / Screw Non-Locking Stainless Steel 3.0trj71js - [id number] Implanted:Qty: 4 on 10/25/2021 by David Kelsey MD at [facility] Screw Left: [facility] 2179.3016 / / Screw Bone Nonlocking Stainless Steel 3.8nwe20mj [place] - [id number] Implanted:Qty: 1 on 10/25/2021 by David Kelsey MD at [facility] Screw Left: Ankle [facility] 2179.3018 / / Screw Non-Locking Stainless Steel 3.3auu42hi - [id number] Implanted:Qty: 1 on 10/25/2021 by David Kelsey MD at [facility] Screw Left: Ankle [facility] 2179.3022 / / Stent Ureteral Firm Hydroplus Coating 6fr 26cm Percuflex Plus - [id number] Implanted:Qty: 1 on 06/10/2022 by Isaac Roe MD at [facility] Stent Right: Ureter [employer] 03/09/2025 [id number] / / [id number] Procedures * Due to [place] law, this organization might not be sharing negative HIV tests. Procedure Name Priority Date/Time Associated Diagnosis Comments BASIC METABOLIC PANEL Routine 06/05/2022 8:54 AM EDT Pre-op evaluation Nephrolithiasis from Last 3 Months or Most Recently Relevant to Health Maintenance Results * Due to [place] law, this organization might not be sharing negative HIV tests. * (ABNORMAL) Basic Metabolic Panel (06/05/2022 8:54 AM EDT) NA 134(L) 135 - 145 mmol/L 06/05/2022 9:35 AM EDT [facility] K 3.7 3.5 - 5.3 mmol/L 06/05/2022 9:35 AM EDT [facility] Cl 100 97 - 110 mmol/L 06/05/2022 9:35 AM EDT [facility] CO2 27 24 - 32 mmol/L 06/05/2022 9:35 AM EDT [facility] BUN 12 7 - 23 mg/dL 06/05/2022 9:35 AM EDT [facility] Creatinine 0.72 0.60 - 1.30 mg/dL 06/05/2022 9:35 AM EDT [facility] Glucose 178(H) 70 - 99 mg/dL 06/05/2022 9:35 AM EDT [facility] Calcium 9.7 8.7 - 10.7 mg/dL 06/05/2022 9:35 AM EDT [facility] Anion Gap 7 5 - 15 06/05/2022 9:35 AM EDT [facility] eGFR >90 >=90 mL/min/1. 73m2 06/05/2022 9:35 AM EDT [facility] Comment: Estimated Glomerular [...] Rice NP LAB BLOOD ORDERABLES Final Result [facility] [address] [id number], from Last 3 Months or Most Recently Relevant to Health Maintenance Insurance [employer] H[employer]/POS Advance Directives * Full Code (Latest Code Status on File) Date Activated Date Inactivated Comments 06/10/2022 12:00 PM 06/10/2022 9:33 PM * Full Code Date Activated Date Inactivated Comments 10/25/2021 6:46 AM 10/25/2021 2:17 PM Care Teams Service Center Appraiser Relationship Specialty Start Date End Date Dale Baptiste DO [address] [place] [phone] PCP - General Family Medicine 10/21/21
== END 2025-08-31 15:20 | disposition home or self-care (01) ==
LOC: HO.PMC 14:39
PROVIDERS: PCP Family Medicine Sports Medicine; Visit Provider Anesthesiology
DX: M54.12 Radiculopathy, cervical region (principal); M50.30 Other cervical disc degeneration, unspecified cervical region; M47.812 Spondylosis without myelopathy or radiculopathy, cervical region; Z96.89 Presence of other specified functional implants; G89.4 Chronic pain syndrome; M96.1 Postlaminectomy syndrome, not elsewhere classified; Z79.891 Long term (current) use of opiate analgesic; Z45.1 Encounter for adjustment and management of infusion pump
CPT/HCPCS: 62370

== ENCOUNTER → 2025-08-31 14:38 | Outpatient (BNVA) | payer OTHER, SELFPAY | PROVIDERS: PCP Family Medicine Sports Medicine; Visit Provider Anesthesiology | DX: M54.12 Radiculopathy, cervical region (principal); M50.30 Other cervical disc degeneration, unspecified cervical region; M47.812 Spondylosis without myelopathy or radiculopathy, cervical region; Z96.89 Presence of other specified functional implants; G89.4 Chronic pain syndrome; M96.1 Postlaminectomy syndrome, not elsewhere classified; Z79.891 Long term (current) use of opiate analgesic | CPT/HCPCS: 62370 ==